=== PATIENT | female | born 1945 | race Caucasian/White ===

== ENCOUNTER → 2017-01-06 | Outpatient (CLI) | payer OTHER ==
[~2017-01-06] MED LIST: CICL160A INH; CLTP PO; LEVO-217 PO; MULT-513 PO; OXYC5TAB PO
--- NOTE | 2017-01-06 15:06 | MAMMOGRAPHY REPORT ---
UNILATERAL RIGHT DIGITAL SCREENING MAMMOGRAM TOMOSYNTHESIS WITH CAD: 01/06/2017 CLINICAL HISTORY: Asymptomatic. Personal history of breast cancer. TECHNIQUE: Breast tomosynthesis in addition to standard 2D mammography was performed. Current study was also evaluated with a Computer Aided Detection (CAD) system. Right CC and MLO 2-D and tomosynt hesis images were obtained. COMPARISON: Comparison is made to exams dated: 12/22/2015 mammogram, 12/19/2014 mammogram, 12/03/2013 m ammogram, 06/13/2013 specimen, 06/13/2013 localization, and 05/23/2013 stereotactic biopsy - [facility]. BREAST COMPOSITION: There are scattered areas of fibroglandular density in the right breast. FINDINGS: There are no suspicious masses, calcifications, or areas of architectural distortion note d in the right breast. There has been no significant interval change compared to prior exams. A bi opsy marker clip is again noted in the right upper outer quadrant. IMPRESSION: ACR BI-RADS CATEGORY 2: BENIGN There is no mammographic evidence of malignancy. A 1 year screening mammogram is recommended. The p atient will receive written notification of the results. Approximately 10% of breast cancers are not detected with mammography. A negative mammographic repor t should not delay biopsy if a clinically suggestive mass is present. Elo Tripathi M.D. /:01/06/2017 13:49:56 Dip [place]: Anabela KELLY)(Alicia), [facility] letter sent: Normal 1/2 BI-RADS Code: ACR BI-RADS Category 2: Benign
== END | disposition home or self-care (01) ==
LOC: C.MAMM 12:29
PROVIDERS: ATTEND Surgery
DX: Z12.31 Encounter for screening mammogram for malignant neoplasm of breast (principal); Z85.3 Personal history of malignant neoplasm of breast

== ENCOUNTER → 2017-01-06 | Outpatient (CLI) | payer OTHER | END | disposition home or self-care (01) | LOC: C.LAB 07:29 | PROVIDERS: ATTEND Physician Assistant | DX: J45.909 Unspecified asthma, uncomplicated (principal); J47.9 Bronchiectasis, uncomplicated; A31.9 Mycobacterial infection, unspecified; R05 Cough; Z12.31 Encounter for screening mammogram for malignant neoplasm of breast; Z85.3 Personal history of malignant neoplasm of breast ==

== ENCOUNTER → 2017-01-13 | Outpatient (CLI) | payer OTHER ==
[2017-01-13 16:41] LABS: BASO % 0.9 %; BASO ABS # 0.07 K/uL (0-0.2); COMPLETE YES; EOS % 7.3 %; HEMATOCRIT 40.6 % (37-47); IG% 0.1 %; LYMPH % 25.3 %; LYMPH ABS # 2.08 K/uL (1.2-3.4); MEAN CELL VOLUME 89.4 fL (80-100); MEAN CORPUSCULAR HEMOGLOBIN 29.5 pg (25-34); MEAN PLATELET VOLUME 10.1 fL (7.4-10.4); MONO % 9.2 %; NEUT % 57.2 %; PLATELET COUNT 300 K/uL (130-400); RED BLOOD COUNT 4.54 M/uL (4.2-5.4); WHITE BLOOD COUNT 8.22 K/uL (4.8-10.8)
[2017-01-13 17:21] LABS: ALKALINE PHOSPHATASE 81 U/L (45-117); ALT/SGPT 26 U/L (12-78); AST/SGOT 22 U/L (15-37); BLOOD UREA NITROGEN 24 mg/dl (7-18); BUN/CREATININE RATIO 27.4 (10-20); CALCIUM 8.8 mg/dl (8.5-10.1); CARBON DIOXIDE 27 mmol/L (21-32); CHLORIDE 108 mmol/L (98-107); CREATININE 0.87 mg/dl (0.60-1.20); GLUCOSE 87 mg/dl (70-99); POTASSIUM 4.2 mmol/L (3.5-5.1); SODIUM 144 mmol/L (136-145); TOTAL IRON BINDING CAPACITY 345 mcg/dl (250-450)
[2017-01-13 17:36] LABS: THYROID STIMULATING HORMONE 0.516 uIu/ml (0.300-4.500)
[2017-01-13 18:38] LABS: LYME DISEASE AB IGG NEG (NEG); LYME DISEASE AB IGM NEG (NEG)
--- NOTE | 2017-01-18 09:11 | CODING QUERY MEDICAL NECESSITY ---
SUPPORTING DIAGNOSIS NEEDED Wiseman SUSY, A supporting diagnosis is required for the test/procedure performed on this patient in order for us to be reimbursed by the patient's insurance. Please provide a supporting diagnosis for the following test/procedure listed below next to the test name along with your signature. *If there is no additional diagnosis for this patient that would support the following test/procedure please document that below next to the test/procedure. Test(s)/Procedure(s) that require a supporting diagnosis: * ([id number]) B12 VITAMIN LEVEL DIAGNOSIS: * ([id number]) VITAMIN D, 1, 25-DIHYDROXY DIAGNOSIS: DATE OF SERVICE: 01/13/17 Provider Signature: Date: Thank you Manuel Moody [facility] Information Management Once completed, please kindly fax back to [phone] For questions please call [phone]
== END | disposition home or self-care (01) ==
LOC: C.LAB 15:44
PROVIDERS: ATTEND Physician Assistant
DX: R53.83 Other fatigue (principal); E53.9 Vitamin B deficiency, unspecified

== ENCOUNTER → 2017-09-27 | Outpatient (CLI) | payer OTHER ==
[2017-09-27 14:26] LABS: INFLUENZA A PCR Neg for Influ A (NEG); INFLUENZA B PCR Neg for Influ B (NEG)
== END | disposition home or self-care (01) ==
LOC: C.LAB1850 11:56
PROVIDERS: ATTEND Physician Assistant
DX: R05 Cough (principal)

== ENCOUNTER → 2017-10-18 | Outpatient (CLI) | payer OTHER ==
--- NOTE | 2017-10-18 10:24 | DIAGNOSTIC IMAGING REPORT ---
CHEST 2 VIEWS ROUTINE CLINICAL HISTORY: COPD RIGHT-SIDED CHEST PAIN. COUGH. COMPARISON STUDY: 12/14/2016 FINDINGS: Postmastectomy changes are visualized in the left. The heart is normal in size. There is no failure. There is no focal pulmonary consolidation. There are no pleural effusions.[ IMPRESSION: No active disease in the chest. Electronically signed by: Jovani Barrera M.D. 10/18/2017 10:22 AM Dictated Date/Time: 10/18/2017 10:21 AM
== END | disposition home or self-care (01) ==
LOC: C.RAD1850 10:13
PROVIDERS: ATTEND Physician Assistant
DX: J44.9 Chronic obstructive pulmonary disease, unspecified (principal)

== ENCOUNTER → 2017-11-02 | Outpatient (CLI) | payer OTHER ==
--- NOTE | 2017-11-02 11:21 | DIAGNOSTIC IMAGING REPORT ---
THORACIC SPINE 3 VIEWS ROUTINE HISTORY: Pain R07.9 Chest [id number] COMPARISON: None. FINDINGS: There is no fracture. Mild scoliosis moderate degenerative disc change throughout. No acute bony abnormality. IMPRESSION: Moderate degenerative change. Mild scoliosis. No acute process. The above report was generated using voice recognition software. It may contain grammatical, syntax or spelling errors. Electronically signed by: Tristan Salcedo M.D. 11/02/2017 11:20 AM Dictated Date/Time: 11/02/2017 11:19 AM
== END | disposition home or self-care (01) ==
LOC: C.RAD1850 10:53
PROVIDERS: ATTEND Physician Assistant
DX: R07.9 Chest pain, unspecified (principal)

== ENCOUNTER → 2017-11-08 | Outpatient (CLI) | payer OTHER ==
--- NOTE | 2017-11-08 11:09 | DIAGNOSTIC IMAGING REPORT ---
(LIVER) ABDOMEN LIMITED HISTORY: 72 years-old Female 10.9 Abdominal painPatient scheduled at [facility] November 08 at 10:30 a acute generalized abdominal pain COMPARISON: CT chest 09/11/2013 TECHNIQUE: Multiple real-time sonogram images of the abdominal right upper quadrant were obtained assessing grayscale appearance and color flow FINDINGS: Slightly increased echogenicity of the pancreas is noted, nonspecific which otherwise appears to be within normal limits. The gallbladder is unremarkable without shadowing cholelithiasis, color wall thickening or pericholecystic fluid. Common bile duct measures 4 mm, within normal limits. The liver appears heterogeneous with increased echogenicity. There are ill-defined areas of decreased echogenicity seen near the tani hepatis within the right hepatic lobe measuring up to 2.6 x 3.5 cm. The imaged right kidney is unremarkable without hydronephrosis, lower pole obscured by bowel gas. IMPRESSION: 1. No cholelithiasis or sonographic evidence of acute cholecystitis. 2. No biliary ductal dilation. 3. Heterogeneous appearance of the liver with increased echogenicity suggesting fatty infiltration. Ill-defined areas of decreased echogenicity within the right hepatic lobe near the tani hepatis may reflect areas of fatty sparing or less likely focal hepatic mass lesions. These findings could be correlated with contrast-enhanced CT of the abdomen. The above report was generated using voice recognition software. It may contain grammatical, syntax or spelling errors. Electronically signed by: Leo Cano M.D. 11/08/2017 11:08 AM Dictated Date/Time: 11/08/2017 11:03 AM
== END | disposition home or self-care (01) ==
LOC: C.ULTR 10:19
PROVIDERS: ATTEND Physician Assistant
DX: R10.9 Unspecified abdominal pain (principal)

== ENCOUNTER → 2017-12-18 | Outpatient (CLI) | payer OTHER ==
[2017-12-18 17:03] LABS: BLOOD UREA NITROGEN 26 mg/dl (7-18); CALCIUM 9.2 mg/dl (8.5-10.1); CARBON DIOXIDE 28 mmol/L (21-32); CREATININE 0.97 mg/dl (0.60-1.20); GLUCOSE 128 mg/dl (70-99); POTASSIUM 4.5 mmol/L (3.5-5.1); SODIUM 136 mmol/L (136-145)
== END | disposition home or self-care (01) ==
LOC: C.LAB 15:25
PROVIDERS: ATTEND Physician Assistant
DX: J44.9 Chronic obstructive pulmonary disease, unspecified (principal); R53.83 Other fatigue; R93.2 Abnormal findings on diagnostic imaging of liver and biliary tract

== ENCOUNTER → 2017-12-19 | Outpatient (CLI) | payer OTHER ==
[~2017-12-19] MED LIST changes: +GADOXETATE DISODIUM (NON-WT BASED PROCEDURE) IV PRN
--- NOTE | 2017-12-19 16:11 | DIAGNOSTIC IMAGING REPORT ---
MRI OF THE ABDOMEN WITH AND WITHOUT CONTRAST LIVER PROTOCOL CLINICAL HISTORY: Abnormal right upper quadrant ultrasound. Right lower quadrant pain. COMPARISON STUDY: Right upper quadrant ultrasound November 08, 2017. TECHNIQUE: Utilizing a 1.5 Cassandra magnet and dedicated coil, multiplanar, multiecho imaging of the abdomen was performed pre and postcontrast administration. Post contrast imaging was performed utilizing dynamic enhancement with 20 minute delayed phase imaging. Injection of 10 cc of Eovist IV was uneventful. FINDINGS: The liver morphology is normal. There is heterogeneous loss of signal within the liver on the out of phase sequence consistent with fatty infiltration. This accounts for the finding on previous ultrasound with areas of fatty sparing noted within the liver. No suspicious hepatic lesions are present. A few T2 hyperintense nonenhancing lesions within the liver reflect cysts. The largest is a 1 cm segment 2 hepatic cyst. There is no biliary or pancreatic ductal dilatation. There is a 1.1 cm hypervascular subcapsular segment 5 focus which is likely benign. This was not shown on prior ultrasound. Note is made of an 8 mm right renal cyst. There is no hydronephrosis. The spleen and adrenal glands are unremarkable. There is no abdominal lymphadenopathy or ascites. A T2 hyperintense lobulated nonenhancing right cardiophrenic angle lesion measuring 7.2 x 4.6 x 2.3 cm reflects a pericardial cyst. The patient is status post left mastectomy. IMPRESSION: 1. No suspicious hepatic lesions. Fatty infiltration of the liver with multiple areas of fatty sparing which accounts for the abnormality on previous ultrasound. 2. 7.2 x 4.6 x 2.3 cm T2 hyperintense nonenhancing right cardiophrenic angle lesion which is suggestive of a pericardial cyst. Electronically signed by: Sushil Mejias M.D. 12/19/2017 4:09 PM Dictated Date/Time: 12/19/2017 2:44 PM
== END ==
LOC: C.MRI 13:12
PROVIDERS: ATTEND Physician Assistant
DX: R93.2 Abnormal findings on diagnostic imaging of liver and biliary tract (principal)

== ENCOUNTER → 2018-01-08 | Outpatient (CLI) | payer OTHER ==
[~2018-01-08] MED LIST changes: -GADOXETATE DISODIUM (NON-WT BASED PROCEDURE) IV PRN
--- NOTE | 2018-01-09 15:04 | MAMMOGRAPHY REPORT ---
UNILATERAL RIGHT DIGITAL SCREENING MAMMOGRAM TOMOSYNTHESIS WITH CAD: 01/08/2018 CLINICAL HISTORY: Routine screening. Patient has no complaints. TECHNIQUE: Right breast tomosynthesis in addition to standard 2D mammography was performed. Current won magallon was also evaluated with a Computer Aided Detection (CAD) system. COMPARISON: Comparison is made to exams dated: 01/06/2017 mammogram, 12/22/2015 mammogram, 12/19/2014 m ammogram, 12/03/2013 mammogram, 06/13/2013 localization, and 01/27/2010 mammogram - [facility]. BREAST COMPOSITION: There are scattered areas of fibroglandular density in the right breast. FINDINGS: There is a stable benign lobulated mass with associated biopsy marker clip in the upper out er quadrant of the right breast. No suspicious mass, architectural distortion or cluster of microcal cifications is seen. IMPRESSION: ACR BI-RADS CATEGORY 1: NEGATIVE There is no mammographic evidence of malignancy. A 1 year screening mammogram is recommended. The pa tient will receive written notification of the results. Approximately 10% of breast cancers are not detected with mammography. A negative mammographic report should not delay biopsy if a clinically suggestive mass is present. Janet Swanson M.D. ay/:01/08/2018 16:12:10 Clinical Cytogenetics Director: Melissa KELLY)(M), [facility] letter sent: Normal 1/2 BI-RADS Code: ACR BI-RADS Category 1: Negative
== END | disposition home or self-care (01) ==
LOC: C.MAMM 13:20
PROVIDERS: ATTEND Surgery
DX: Z12.31 Encounter for screening mammogram for malignant neoplasm of breast (principal); Z90.12 Acquired absence of left breast and nipple

== ENCOUNTER → 2018-04-18 | Outpatient (CLI) | payer OTHER | END | disposition home or self-care (01) | LOC: C.LAB 14:13 | PROVIDERS: ATTEND Family Medicine | DX: E03.8 Other specified hypothyroidism (principal) ==

== ENCOUNTER 2022-08-17 17:44 | Inpatient (IN) ==
[2022-08-17 19:27] LABS: Basophils # (auto) 0.05 K/uL (0-0.2); Basophils % (auto) 0.3 %; Eosinophils # (auto) 0.03 K/uL (0-0.50); Eosinophils % (auto) 0.2 %; Hematocrit (blood only) 39.9 % (34.1-44.9); Hemoglobin 13.3 g/dl (12.0-16.0); Immature Granulocytes # (auto) 0.04 K/uL (0.00-0.02); Immature Granulocytes % (auto) 0.3 %; Lymphocytes # (auto) 0.95 K/uL (1.2-3.4); Lymphocytes % (auto) 6.2 %; Mean Corpuscular Hemoglobin 28.8 pg (25.0-34.0); Mean Corpuscular Hgb Conc 33.3 g/dL (32.0-36.0); Mean Corpuscular Volume 86.4 fL (80.0-100.0); Mean Platelet Volume 9.8 fL (9.4-12.3); Monocytes % (auto) 7.2 %; Neutrophils # (auto) 13.17 K/uL (1.4-6.5); Neutrophils % (auto) 85.8 %; Platelet Count 306 K/uL (130-400); RDW Coefficient of Variation 13.7 % (11.5-14.5); RDW Standard Deviation 43.5 fL (36.4-46.3); Red Blood Count 4.62 M/uL (3.93-5.22); White Blood Count 15.34 K/ul (4.8-10.8)
[2022-08-17 20:31] LABS: Albumin Globulin Ratio 0.9 (0.9-2); Albumin Level 3.7 gm/dl (3.4-5.0); Bilirubin,Total 0.7 mg/dl (0.2-1.0); Calcium 9.2 mg/dl (8.5-10.1); Creatinine Clr Calc Pharmacy 70.9 ml/min; Est GFR (African American) 96.2 ml/min; Globulin 4.2 gm/dl (2.5-4.0); Potassium 3.8 mmol/L (3.5-5.1); Total Protein 7.9 gm/dl (6.0-8.3)
[2022-08-17] MEDS ORDERED: SODIUM CHLORIDE 0.9% 1000ML 1,000 ML IV SCH (20:45)
[2022-08-17] MEDS ORDERED: levoFLOXacin/D5W 750 MG/150 ML BAG IV STA (20:48)
[2022-08-17 20:51] LABS: Influenza A virus by PCR Negative (Neg); Influenza B virus by PCR Negative (Neg); RSV by PCR Negative (Neg); SARS CoV2 RNA(COVID-19) Ceph NEGATIVE (Negative)
--- NOTE | 2022-08-17 20:54 | Emergency Department Note ---
History of Present Illness General Chief complaint: Flu Like Symptoms Stated complaint: REFER BY DOC, SEVERE PNUEMONIA Time Seen by Provider: 08/17/22 19:54 History of Present Illness Maximum Pain Intensity: 5 77-year-old female presents to the ED with a chief complaint of pneumonia. The patient states that she saw Dr. Casas today. She had an x-ray that shows that she has pneumonia. She was told to come to the ED to be admitted to the hospital. The patient reports upper respiratory symptoms and increasing shortness of breath. She was hypoxic when she came in today on room air. She does not use home oxygen. Reports some generalized weakness as well. Home Medications Medication Instructions Recorded Confirmed Type cholecalciferol (vitamin D3) 25 1,000 unit PO DAILY 04/10/19 08/17/22 History mcg (1,000 unit) capsule multivitamin 1 tab PO DAILY 04/10/19 08/17/22 History Oxygen Home #1 ea 12/30/20 08/17/22 Rx magnesium gluconate 27 mg 27 mg PO BID 11/24/21 08/17/22 History magnesium (500 mg) tablet (Mag-G) nebulizer accessories #1 ea 03/11/22 08/17/22 Rx hydroxyzine HCl 25 mg tablet 25 mg PO BID PRN itching #30 tabs 06/29/22 08/17/22 Rx fluticasone furoate 200 1 inh inhalation DAILY #30 ea 07/01/22 08/17/22 Rx mcg/actuation blister powder for inhalation (Arnuity Ellipta) levothyroxine 50 mcg tablet 25 mcg PO DAILY #30 tabs 07/20/22 08/17/22 History Flutter Valve #1 ea 07/25/22 08/17/22 Rx sodium chloride 7 % for 4 ml inhalation BID #240 mL 07/27/22 08/17/22 Rx nebulization albuterol sulfate 2.5 mg/3 mL 2.5 mg (3 mL) inhalation BID PRN 07/29/22 08/17/22 Rx (0.083 %) solution for nebulization shortness of breath or wheezing #180 mL oseltamivir 75 mg capsule (Tamiflu) 75 mg PO BID 5 days #10 caps 08/15/22 08/17/22 Rx Allergies Allergy/AdvReac Type Severity Reaction Status Date / Time Cephalosporins Allergy Severe Verified 07/20/22 10:09 lidocaine Allergy Severe Verified 07/20/22 10:09 tree and shrub pollen Allergy Severe Verified 07/20/22 10:09 cefaclor Allergy Unknown . Verified 07/20/22 10:09 iodine Allergy Unknown HIVES Verified 07/20/22 10:09 Penicillins Allergy Unknown RASH, RXN Verified 07/20/22 10:09 TO AMOXICILLIN [place] Allergy Unknown UNKNOWN. Uncoded 07/20/22 10:09 Past Med/Surg History Medical History Abdominal pain Asthmatic bronchitis Atypical mycobacterial infection Bronchiectasis Chronic shortness of breath Cough Cough productive of purulent sputum Fever RADHA (mycobacterium avium-intracellulare) Pneumonia Postherpetic neuralgia Surgical History History of bronchoscopy History of partial mastectomy of left breast History of tonsillectomy History of total abdominal hysterectomy and bilateral salpingo-oophorectomy Family History Sister Cervical cancer Mother Diabetes Other Colon cancer Crohn's disease Heart disease Social History Smoking Status: Former smoker Tobacco Type: Cigarettes Feels Safe at Home: Yes Review of Systems A total of 10 systems reviewed and were otherwise negative Physical Exam Vital Signs Vital Signs - 24 hr 08/17/22 18:29 08/17/22 19:11 08/17/22 20:05 Temperature 38.3 C H Temperature Source Oral Pulse Rate 106 H Pulse Rate [Finger] 99 H Pulse Rate from SpO2 Sensor Pulse Rhythm Pulse Rhythm [Finger] Regular Pulse Strength [Finger] Normal Respiratory Rate 24 20 Respiratory Effort / Characteristics Non-Labored Spontaneous Non-Labored Respiratory Depth Normal Normal Respiratory Pattern Regular Blood Pressure 147/78 H Blood Pressure Mean 101 Pulse Oximetry 88 L 98 79 L Oxygen Delivery Method Room Air Room Air Room Air Oxygen Flow Rate Sepsis Recent Fever Within 48 Hours No Sepsis New/Unexplained Change in Mental Status N/A Sepsis Action Taken by Nursing No Action Required Oxygen Flow Rate - Titration 2 Pulse Oximetry Post Tiitration 92 08/17/22 18:59 08/17/22 19:00 08/17/22 19:01 Temperature Temperature Source Pulse Rate 104 H 110 H Pulse Rate [Finger] Pulse Rate from SpO2 Sensor 104 H 110 H Pulse Rhythm Pulse Rhythm [Finger] Pulse Strength [Finger] Respiratory Rate 16 29 H Respiratory Effort / Characteristics Respiratory Depth Respiratory Pattern Blood Pressure 191/164 H Blood Pressure Mean 173 Pulse Oximetry 88 L 91 Oxygen Delivery Method Oxygen Flow Rate Sepsis Recent Fever Within 48 Hours Sepsis New/Unexplained Change in Mental Status Sepsis Action Taken by Nursing Oxygen Flow Rate - Titration Pulse Oximetry Post Tiitration 08/17/22 19:01 08/17/22 19:12 08/17/22 19:12 Temperature Temperature Source Pulse Rate 86 Pulse Rate [Finger] Pulse Rate from SpO2 Sensor 89 Pulse Rhythm Pulse Rhythm [Finger] Pulse Strength [Finger] Respiratory Rate 20 Respiratory Effort / Characteristics Respiratory Depth Respiratory Pattern Blood Pressure 179/123 H 176/58 H Blood Pressure Mean 141 97 Pulse Oximetry 83 L Oxygen Delivery Method Oxygen Flow Rate Sepsis Recent Fever Within 48 Hours Sepsis New/Unexplained Change in Mental Status Sepsis Action Taken by Nursing Oxygen Flow Rate - Titration Pulse Oximetry Post Tiitration 08/17/22 19:30 08/17/22 19:30 08/17/22 20:00 Temperature Temperature Source Pulse Rate 96 H Pulse Rate [Finger] Pulse Rate from SpO2 Sensor 95 H Pulse Rhythm Pulse Rhythm [Finger] Pulse Strength [Finger] Respiratory Rate 36 H Respiratory Effort / Characteristics Respiratory Depth Respiratory Pattern Blood Pressure 178/58 H 174/64 H Blood Pressure Mean 98 100 Pulse Oximetry 91 Oxygen Delivery Method Oxygen Flow Rate Sepsis Recent Fever Within 48 Hours Sepsis New/Unexplained Change in Mental Status Sepsis Action Taken by Nursing Oxygen Flow Rate - Titration Pulse Oximetry Post Tiitration 08/17/22 20:00 08/17/22 20:30 08/17/22 20:30 Temperature Temperature Source Pulse Rate 85 93 H Pulse Rate [Finger] Pulse Rate from SpO2 Sensor 85 90 Pulse Rhythm Pulse Rhythm [Finger] Pulse Strength [Finger] Respiratory Rate 36 H 26 H Respiratory Effort / Characteristics Respiratory Depth Respiratory Pattern Blood Pressure 166/53 H Blood Pressure Mean 90 Pulse Oximetry 91 95 Oxygen Delivery Method Nasal Cannula Oxygen Flow Rate 2 Sepsis Recent Fever Within 48 Hours Sepsis New/Unexplained Change in Mental Status Sepsis Action Taken by Nursing Oxygen Flow Rate - Titration Pulse Oximetry Post Tiitration 08/17/22 21:28 08/17/22 21:30 08/17/22 21:00 Temperature Temperature Source Pulse Rate 90 Pulse Rate [Finger] Pulse Rate from SpO2 Sensor Pulse Rhythm Regular Pulse Rhythm [Finger] Pulse Strength [Finger] Respiratory Rate 20 Respiratory Effort / Characteristics Respiratory Depth Respiratory Pattern Blood Pressure 149/61 H Blood Pressure Mean 90 Pulse Oximetry 99 99 Oxygen Delivery Method Nasal Cannula Nasal Cannula Oxygen Flow Rate 2 2 Sepsis Recent Fever Within 48 Hours Sepsis New/Unexplained Change in Mental Status Sepsis Action Taken by Nursing Oxygen Flow Rate - Titration Pulse Oximetry Post Tiitration 08/17/22 21:00 08/17/22 21:30 08/17/22 21:30 Temperature Temperature Source Pulse Rate 82 87 Pulse Rate [Finger] Pulse Rate from SpO2 Sensor 83 85 Pulse Rhythm Pulse Rhythm [Finger] Pulse Strength [Finger] Respiratory Rate 33 H 27 H Respiratory Effort / Characteristics Respiratory Depth Respiratory Pattern Blood Pressure 166/60 H Blood Pressure Mean 95 Pulse Oximetry 98 100 Oxygen Delivery Method Nasal Cannula Oxygen Flow Rate 2 Sepsis Recent Fever Within 48 Hours Sepsis New/Unexplained Change in Mental Status Sepsis Action Taken by Nursing Oxygen Flow Rate - Titration Pulse Oximetry Post Tiitration CONSTITUTIONAL/VITAL SIGNS: Reviewed / noted above. GENERAL: Non-toxic in appearance. INTEGUMENTARY: Warm, dry, and [place]. HEAD: Normocephalic. EYES: without scleral icterus or trauma. ENT/OROPHARYNX: clear and moist. LYMPHADENOPATHY/NECK: Is supple without lymphadenopathy or meningismus. RESPIRATORY: Diminished with some rhonchi to auscultation bilaterally. No increased work of breathing. CARDIOVASCULAR: Regular rate and rhythm. GI/ABDOMEN: Soft and nontender. No organomegaly or pulsatile mass. EXTREMITIES: Warm and well perfused. BACK: No CVA tenderness. NEUROLOGICAL: Intact without focal deficits. PSYCHIATRIC: normal affect. MUSCULOSKELETAL: Normally developed with good muscle tone. TRIAGE NURSING DOCUMENTATION REVIEWED. Course Administered Medications Discontinued Medications Sodium Chloride (Nss 1000ml) 1,000 mls @ 999 mls/hr IV .Q1H1M POLO Stop: 08/17/22 21:45 Last Infusion: 08/17/22 22:12 Dose: 0 mls/hr Documented By: Admin: 08/17/22 21:03 Dose: 999 mls/hr Documented By: JONNY Levofloxacin/Dextrose (Levaquin/D5w) 750 mg in 150 mls @ 100 mls/hr IV NOW [facility] Stop: 08/17/22 22:17 Last Infusion: 08/17/22 22:47 Dose: 0 mls/hr Documented By: Admin: 08/17/22 21:04 Dose: 100 mls/hr Documented By: JONNY Acetaminophen (Ofirmev) 1,000 mg in 100 mls @ 400 mls/hr IV NOW STA Stop: 08/17/22 21:28 Last Infusion: 08/17/22 21:43 Dose: 0 mls/hr Documented By: Admin: 08/17/22 21:22 Dose: 400 mls/hr Documented By: JONNY Medical Decision Making Differential Diagnosis The differential was considered includes acute myocardial infarction, acute coronary syndrome, myocarditis, pericarditis, pericardial effusions /tamponad, esophageal perforation, pulmonary embolism, pneumonia, pneumothorax, cardiomyopathy, congestive heart, anemia , COPD/asthma exacerbation. Medical Records Attestation: I reviewed the patient's medical records. Home Medications Current Medication List: was personally reviewed by me Laboratory Data Attestation: I reviewed the patient's lab results. Result diagrams: 08/17/22 19:15 08/17/22 19:15 Lab Results 08/17/22 08/17/22 08/17/22 Range/Units 19:15 19:15 20:01 WBC 15.34 H (4.8-10.8) K/ul RBC 4.62 (3.93-5.22) M/uL Hgb 13.3 (12.0-16.0) g/dl Hct 39.9 (34.1-44.9) % MCV 86.4 (80.0-100.0) fL MCH 28.8 (25.0-34.0) pg MCHC 33.3 (32.0-36.0) g/dL RDW Std Deviation 43.5 (36.4-46.3) fL RDW Coeff of Ara 13.7 (11.5-14.5) % Plt Count 306 (130-400) K/uL MPV 9.8 (9.4-12.3) fL Immature Gran % (Auto) 0.3 % Neut % (Auto) 85.8 % Lymph % (Auto) 6.2 % Phelps % (Auto) 7.2 % Eos % (Auto) 0.2 % Baso % (Auto) 0.3 % Neut # (Auto) 13.17 H (1.4-6.5) K/uL Lymph # (Auto) 0.95 L (1.2-3.4) K/uL Phelps # (Auto) 1.10 H (0.24-0.82) K/uL Eos # (Auto) 0.03 (0-0.50) K/uL Baso # (Auto) 0.05 (0-0.2) K/uL Immature Gran # (Auto) 0.04 H (0.00-0.02) K/uL Sodium 135 L (136-145) mmol/L Potassium 3.8 (3.5-5.1) mmol/L Chloride 100 (98-107) mmol/L Carbon Dioxide 25 (21-32) mmol/L Anion Gap 10 (3-11) BUN 21 (6-23) mg/dl Creatinine 0.70 (0.6-1.2) mg/dl Est Cr Clr Drug Dosing 70.9 ml/min Est GFR ( Amer) 96.2 ml/min Est GFR (Non-Af Amer) 83.0 ml/min BUN/Creatinine Ratio 30.0 H (10-20) Glucose 136 H (70-99(Fasting)) mg/dl Lactate (0.4-2.0) mmol/L Calcium 9.2 (8.5-10.1) mg/dl Magnesium (1.7-2.4) mg/dl Total Bilirubin 0.7 (0.2-1.0) mg/dl AST 33 (13-39) U/L ALT 27 (7-52) U/L Alkaline Phosphatase 98 (34-104) U/L Troponin I High Sens (0-14) pg/ml Total Protein 7.9 (6.0-8.3) gm/dl Albumin 3.7 (3.4-5.0) gm/dl Globulin 4.2 H (2.5-4.0) gm/dl Albumin/Globulin Ratio 0.9 (0.9-2) Procalcitonin (0-0.5) ng/ml SARS-CoV-2 (PCR) NEGATIVE (Negative) Influenza Type A (PCR) Negative (Neg) Influenza Type B (PCR) Negative (Neg) RSV (RT-PCR) Negative (Neg) 12/21/22 12/21/22 12/21/22 Range/Units 21:31 21:31 21:31 WBC (4.8-10.8) K/ul RBC (3.93-5.22) M/uL Hgb (12.0-16.0) g/dl Hct (34.1-44.9) % MCV (80.0-100.0) fL MCH (25.0-34.0) pg MCHC (32.0-36.0) g/dL RDW Std Deviation (36.4-46.3) fL RDW Coeff of Ara (11.5-14.5) % Plt Count (130-400) K/uL MPV (9.4-12.3) fL Immature Gran % (Auto) % Neut % (Auto) % Lymph % (Auto) % Phelps % (Auto) % Eos % (Auto) % Baso % (Auto) % Neut # (Auto) (1.4-6.5) K/uL Lymph # (Auto) (1.2-3.4) K/uL Phelps # (Auto) (0.24-0.82) K/uL Eos # (Auto) (0-0.50) K/uL Baso # (Auto) (0-0.2) K/uL Immature Gran # (Auto) (0.00-0.02) K/uL Sodium (136-145) mmol/L Potassium (3.5-5.1) mmol/L Chloride (98-107) mmol/L Carbon Dioxide (21-32) mmol/L Anion Gap (3-11) BUN (6-23) mg/dl Creatinine (0.6-1.2) mg/dl Est Cr Clr Drug Dosing ml/min Est GFR ( Amer) ml/min Est GFR (Non-Af Amer) ml/min BUN/Creatinine Ratio (10-20) Glucose (70-99(Fasting)) mg/dl Lactate 0.8 (0.4-2.0) mmol/L Calcium (8.5-10.1) mg/dl Magnesium 1.7 (1.7-2.4) mg/dl Total Bilirubin (0.2-1.0) mg/dl AST (13-39) U/L ALT (7-52) U/L Alkaline Phosphatase (34-104) U/L Troponin I High Sens 18.0 H (0-14) pg/ml Total Protein (6.0-8.3) gm/dl Albumin (3.4-5.0) gm/dl Globulin (2.5-4.0) gm/dl Albumin/Globulin Ratio (0.9-2) Procalcitonin 0.46 (0-0.5) ng/ml SARS-CoV-2 (PCR) (Negative) Influenza Type A (PCR) (Neg) Influenza Type B (PCR) (Neg) RSV (RT-PCR) (Neg) Imaging Data My Impression: Chest x-ray: Per my review, I agree with radiologist suggesting the patient has bilateral pneumonia. ECG Data Attestation: I personally reviewed and interpreted this ECG as follows: Additional Comments: Twelve-lead EKG: Per my interpretation shows a normal sinus rhythm at a rate about 80. No ST elevation. No PVCs. Normal QTC. MDM Narrative 77-year-old female presents with cough and upper respiratory symptoms in the setting of a recent chest x-ray that shows bilateral pneumonia. She was hypoxic when she came in today with saturations in the 80s on room air. 2 L gets her up to 95%. She is febrile with a temp of 38.3. Her white blood cell count was elevated at about 15,000. Chemistry panel was unremarkable. The patient was given IV Levaquin and IV fluids. She will be seen by the hospitalist for further evaluation and care. Impression & Plan Bilateral interstitial pneumonia, Hypoxia Discharge Plan Visit Data Chief Complaint: Flu Like Symptoms Stated Complaint: REFER BY DOC, SEVERE PNUEMONIA ED Provider: Chuy Weiss Discharge Problem: Bilateral interstitial pneumonia, Hypoxia Patient Disposition: Admitted As Inpatient Discharge Instructions Interventions: ED Discharge Assessment Last Done: 08/17/22 23:01
--- NOTE | 2022-08-17 21:07 | History & Physical Report ---
Date of Service August 17, 2022 Assessment & Plan (1) Bilateral interstitial pneumonia: Plan: - 4 days of fever/chills, shortness of breath, cough. - CXR: Interval worsening of bilateral lower lung predominant airspace opacities which may represent infectious/inflammatory process. - WBC 15 w/ left shift, febrile, tachypneic, hypoxic, borderline tachycardic. - Due to allergies to penicillins and cephalosporins, patient started empirically on Levaquin. - COVID/flu/RSV negative. - Procal and lactate ordered, pending. (2) SIRS (systemic inflammatory response syndrome): Plan: - WBC 15, temp 38.3C, RR 27 - Secondary to bacterial pneumonia, treatment as above. (3) Asthmatic bronchitis: Plan: - Continue home inhalers. (4) Hypothyroidism: Plan: - Continue levothyroxine. (5) Bronchiectasis: Plan - Admit to med/tele. - SCDs, Lovenox for VTE ppx. - Full Code. History of Present Illness Chief Complaint: SOB, chills x 4 days Primary Care Provider: David Khoury MD Janie Rodriguez is a 77-year-old female with a past medical history significant for asthma, bronchiectasis, nontuberculous Mycobacterium infection, and hypothyroidism who is presenting today at the referral of her clerk checker for findings of pneumonia on outpatient x-ray. She has been having ongoing weakness, shortness of breath, cough, and fevers/chills at home since Monday. Her clerk checker ordered COVID/flu/RSV panel as well as chest x-ray. Negative for viruses, however CXR with interval worsening of bilateral lower lung predominant airspace opacities. She was encouraged to present to the ED for further evaluation. On presentation, she is febrile at 38.3 C, tachycardic with an HR in 100s, 88% on room air, and hypertensive. Placed on 2 L NC with improvement. Labs are notable for leukocytosis 15 with left shift, otherwise unremarkable without electrolyte abnormalities or renal impairment. COVID, flu, RSV rechecked today and are negative. She was given 1L NSS bolus and a dose of levofloxacin in the ED. Allergies Allergy/AdvReac Type Severity Reaction Status Date / Time Cephalosporins Allergy Severe Verified 07/20/22 10:09 lidocaine Allergy Severe Verified 07/20/22 10:09 tree and shrub pollen Allergy Severe Verified 07/20/22 10:09 cefaclor Allergy Unknown . Verified 07/20/22 10:09 iodine Allergy Unknown HIVES Verified 07/20/22 10:09 Penicillins Allergy Unknown RASH, RXN Verified 07/20/22 10:09 TO AMOXICILLIN [place] Allergy Unknown UNKNOWN. Uncoded 07/20/22 10:09 Home Medications Medication Instructions Recorded Confirmed Type cholecalciferol (vitamin D3) 25 1,000 unit PO DAILY 04/10/19 08/17/22 History mcg (1,000 unit) capsule multivitamin 1 tab PO DAILY 04/10/19 08/17/22 History Oxygen Home #1 ea 12/30/20 08/17/22 Rx magnesium gluconate 27 mg 27 mg PO BID 11/24/21 08/17/22 History magnesium (500 mg) tablet (Mag-G) nebulizer accessories #1 ea 03/11/22 08/17/22 Rx hydroxyzine HCl 25 mg tablet 25 mg PO BID PRN itching #30 tabs 06/29/22 08/17/22 Rx fluticasone furoate 200 1 inh inhalation DAILY #30 ea 07/01/22 08/17/22 Rx mcg/actuation blister powder for inhalation (Arnuity Ellipta) levothyroxine 50 mcg tablet 25 mcg PO DAILY #30 tabs 07/20/22 08/17/22 History Flutter Valve #1 ea 07/25/22 08/17/22 Rx sodium chloride 7 % for 4 ml inhalation BID #240 mL 07/27/22 08/17/22 Rx nebulization albuterol sulfate 2.5 mg/3 mL 2.5 mg (3 mL) inhalation BID PRN 07/29/22 08/17/22 Rx (0.083 %) solution for nebulization shortness of breath or wheezing #180 mL oseltamivir 75 mg capsule (Tamiflu) 75 mg PO BID 5 days #10 caps 08/15/22 08/17/22 Rx Past Med/Surg History Medical History Abdominal pain Asthmatic bronchitis Atypical mycobacterial infection Bronchiectasis Chronic shortness of breath Cough Cough productive of purulent sputum Fever RADHA (mycobacterium avium-intracellulare) Pneumonia Postherpetic neuralgia Surgical History History of bronchoscopy History of partial mastectomy of left breast History of tonsillectomy History of total abdominal hysterectomy and bilateral salpingo-oophorectomy Family History Sister Cervical cancer Mother Diabetes Other Colon cancer Crohn's disease Heart disease Social History Smoking Status: Former smoker Tobacco Type: Cigarettes Hx Alcohol Use: Yes Alcohol type: wine Hx Substance Use: No Preferred Language: Amharic Communication Ability: Effective Employee Health Nurse Required: No Beliefs That Will Affect Care: Catholic Current Living Situation: Spouse Feels Safe at Home: Yes Assistive Devices: None Review of Systems Review of Systems: Constitutional: fever/chills, weakness, fatigue x 4 days; no myalgias, anorexia, night sweats Eyes: No diplopia, no worsening or blurred vision ENT: normal hearing, no trouble swallowing Respiratory: cough, increased sputum, dyspnea on exertion x 4 days Cardiovascular: No chest pain, tightness or palpitations Abdomen: No pain, nausea, vomiting, diarrhea or constipation : Denies dysuria, hematuria, increased urgency/frequency, urinary retention Musculoskeletal: No joint pain, calf pain, swelling Neurologic: No weakness, numbness/tingling, or balance problems Psychiatric: No anxiety or depression Skin: No rash or itch Physical Exam Physical Exam: General: awake, alert, no apparent distress, Head: Normocephalic, atraumatic ENT: PERRL, EOMI, no pharyngeal exudate, mucous membranes moist Chest: decreased breath sounds in b/l lower lung magdaleno, on 2L NC, conversational without dyspnea or accessory muscle use Cardiac: Regular rate and rhythm, no murmur, no JVD, normal peripheral pulses, good capillary refill Abdominal: NABS x 4 quadrants, soft, nontender to palpation, no rebound, guarding or tenderness Extremities: Normal inspection, no peripheral edema or erythema, calfs nontender to palpation Psych: Normal mood and affect Neuro: AAO x 3, strength intact bilaterally and rated 5/5, no motor deficits, speech is clear, no peripheral sensory deficits Skin: no rash or erythema Results & Data Results & Data ([facility]) Vital Signs (Past 12 Hours) Vital Signs Temp Pulse Pulse Resp BP Pulse Ox O2 Del Method 08/17/22 20:30 93 H 26 H 95 Nasal Cannula 08/17/22 20:30 166/53 H 08/17/22 20:00 85 36 H 91 08/17/22 20:00 174/64 H 08/17/22 19:30 96 H 36 H 91 08/17/22 19:30 178/58 H 08/17/22 19:12 176/58 H 08/17/22 19:12 86 20 83 L 08/17/22 19:01 179/123 H 08/17/22 19:01 110 H 29 H 91 08/17/22 19:00 104 H 16 88 L 08/17/22 18:59 191/164 H 08/17/22 20:05 79 L Room Air 08/17/22 19:11 99 H 20 98 Room Air 08/17/22 18:29 38.3 C H 106 H 24 147/78 H 88 L Room Air O2 Flow Rate 08/17/22 20:30 2 08/17/22 20:30 08/17/22 20:00 08/17/22 20:00 08/17/22 19:30 08/17/22 19:30 08/17/22 19:12 08/17/22 19:12 08/17/22 19:01 08/17/22 19:01 08/17/22 19:00 08/17/22 18:59 08/17/22 20:05 08/17/22 19:11 08/17/22 18:29 Laboratory Results Abnormal lab results 08/17/22 08/17/22 Range/Units 19:15 19:15 WBC 15.34 H (4.8-10.8) K/ul Neut # (Auto) 13.17 H (1.4-6.5) K/uL Lymph # (Auto) 0.95 L (1.2-3.4) K/uL [place] # (Auto) 1.10 H (0.24-0.82) K/uL Immature Gran # (Auto) 0.04 H (0.00-0.02) K/uL Sodium 135 L (136-145) mmol/L BUN/Creatinine Ratio 30.0 H (10-20) Glucose 136 H (70-99(Fasting)) mg/dl Globulin 4.2 H (2.5-4.0) gm/dl ECG Additional Comments: Normal sinus rhythm Normal ECG When compared with ECG of 07-APR-2010 06:20, No significant change was found. Code Status & VTE Plan Code Status Full Code. Supervising Physician Co-Signing Physician Notes Attending addendum: I have physically seen this patient, have supervised the medical residents activities, and agree with the H&P unless as otherwise noted. Assessment and Plan: Bilateral interstitial pneumonia/SIRS/asthmatic bronchitis/bronchiectasis- Allergic to penicillins and cephalosporins- Agree with levofloxacin 750 mg IV daily Duonebs every 4 hours while awake and every 2 hours when necessary. Negative for COVID-19/flu/RSV Guaifenesin extended release 12 mg p.o. twice daily Follows outpatient setting with pulmonology Dr. Sorto Hypothyroidism- Continue levothyroxine Remaining orders and notations as noted PG Care Time/CCT Total # of Minutes Spent Total Time Spent with Patient: Total time spent is greater than 50% in coordination of care (as documented) at patient's floor/unit and/or counseling patient: Coding Level of Care Code 49028 Initial Inpt Care Lvl 3 Diagnoses Bilateral interstitial pneumonia J84.9 SIRS (systemic inflammatory response syndrome) R65.10 Asthmatic bronchitis J45.909 Hypothyroidism E03.9 Bronchiectasis J47.9
[2022-08-17] MEDS ORDERED: ACETAMINOPHEN 1,000 MG/100 ML VIAL IV STA (21:14)
[2022-08-17 22:12] LABS: Magnesium 1.7 mg/dl (1.7-2.4)
[2022-08-17] MEDS ORDERED: ALBUTEROL 0.083% NEBU SOLN 3 ML VIAL INH PRN ×2 (23:52)
[2022-08-17] MEDS ORDERED: hydrOXYzine HCl 25 MG TAB PO PRN (23:52)
[2022-08-17] MEDS ORDERED: ALUMINUM/MAGNESIUM SUSP 30 ML UDC PO PRN (23:52)
[2022-08-17] MEDS ORDERED: POLYETHYLENE (MIRALAX) 17 GM PACK PO PRN (23:52)
[2022-08-17] MEDS ORDERED: ONDANSETRON INJ 2 MG/ML 2 ML VIAL IV PRN (23:52)
[2022-08-18] MEDS: LACTATED RINGER'S 1,000 ML IV SCH ×2 (00:38→08:53)
[2022-08-18] MEDS: ENOXAPARIN INJ 40 MG/0.4 ML SYR SQ SCH ×2 (00:39→20:43)
[2022-08-18 02:54] LABS: Appearance Urine Clear (Clear); Bacteria Urine Automated Negative (Negative); Bilirubin Urine Negative (Negative); Blood Urine 1+ (Negative); Color Urine Yellow; Glucose Urine UA Negative (Negative); Ketones Urine Negative (Negative); Leukocyte Esterase Urine Negative (Negative); Nitrite Urine Negative (Negative); Protein Urine Negative (Negative); RBC Urine Automated 0-4 /hpf (0-4); Urobilinogen Urine Negative (Negative); pH Urine 5.5 (4.5-7.5)
[2022-08-18] MEDS: ACETAMINOPHEN 325 MG TAB PO PRN ×2 (05:02→21:20)
[2022-08-18] MEDS ORDERED: MoRPHine SULFATE 2 MG/ML CARP IV STA (06:12)
[2022-08-18] MEDS ORDERED: LEVOTHYROXINE SODIUM 25 MCG TABLET PO SCH (06:30)
[2022-08-18] MEDS: SODIUM CHLOR 7% 4 ML NEB INH SCH ×2 (07:21→20:35)
[2022-08-18 07:48] LABS: Basophils # (auto) 0.06 K/uL (0-0.2); Basophils % (auto) 0.5 %; Eosinophils # (auto) 0.04 K/uL (0-0.50); Eosinophils % (auto) 0.3 %; Hematocrit (blood only) 35.5 % (34.1-44.9); Hemoglobin 11.6 g/dl (12.0-16.0); Immature Granulocytes # (auto) 0.06 K/uL (0.00-0.02); Immature Granulocytes % (auto) 0.5 %; Lymphocytes % (auto) 11.3 %; Mean Corpuscular Hemoglobin 28.7 pg (25.0-34.0); Mean Corpuscular Hgb Conc 32.7 g/dL (32.0-36.0); Mean Corpuscular Volume 87.9 fL (80.0-100.0); Mean Platelet Volume 9.6 fL (9.4-12.3); Monocytes # (auto) 1.31 K/uL (0.24-0.82); Monocytes % (auto) 9.9 %; Neutrophils # (auto) 10.29 K/uL (1.4-6.5); Neutrophils % (auto) 77.5 %; Platelet Count 294 K/uL (130-400); RDW Coefficient of Variation 13.6 % (11.5-14.5); RDW Standard Deviation 44.2 fL (36.4-46.3); Red Blood Count 4.04 M/uL (3.93-5.22); White Blood Count 13.26 K/ul (4.8-10.8)
[2022-08-18 08:14] LABS: BUN Creatinine Ratio 29.1 (10-20); Calcium 8.3 mg/dl (8.5-10.1); Creatinine Clr Calc Pharmacy 90.5 ml/min; Est GFR (African American) 104.1 ml/min; Est GFR (Non-African American) 89.8 ml/min; Magnesium 1.8 mg/dl (1.7-2.4); Potassium 3.5 mmol/L (3.5-5.1)
--- NOTE | 2022-08-18 08:16 | Hospitalist Progress Note ---
Date of Service August 18, 2022 Assessment & Plan (1) Bilateral interstitial pneumonia: (2) Hypothyroidism: (3) Postherpetic neuralgia: Plan Janie Rodriguez is a 77-year-old female with a past medical history significant for asthma, bronchiectasis, nontuberculous Mycobacterium infection, and hypothyroidism who is presenting today at the referral of her traffic maintenance supervisor for findings of pneumonia on outpatient x-ray. She has been having ongoing weakness, shortness of breath, cough, and fevers/chills at home since Monday. Bilateral Interstitial Pneumonia -4 days of fever/chills, shortness of breath, cough leading to presentation at ED -CXR: Interval worsening of bilateral lower lung predominant airspace opacities which may represent infectious/inflammatory process. -WBC slightly down at 13.26 w/ left shift, afebrile today and normal HR. On Room air comfortably -Able to get adequate PO intake, discontinued IV fluids -Due to allergies to penicillins and cephalosporins, patient started on Levaquin. -COVID/flu/RSV negative, Procal and lactate negative -Continue home inhalers -Hope to d/c tomorrow if symptoms continue to improve Postherpetic Neuralgia -Shingles in 2008, has had residual pain ever since -Noted 10/10 pain intensity overnight, improved some with morphine -Pain stable throughout the day Hypothyroidism -Continue levothyroxine. Per patient, previous dosage given today was not upd ated to current dose -Checked [facility] PowerChart- 50mcg is most recent dosage -Updated dose on medication order Admission and Anticipated Discharge Date Admission Date: August 17, 2022 Supervising Physician Co-Signing Physician Notes Sepsis due to bilateral interstitial pneumonia 77 yo female seen and examined by myself at bedside. Patient reports feeling better today. She has been intermittently on supplemental oxygen and then back on room air. She appears to be responding to Fluroquinolone treatment. If she continues to rapidly improve, may consider discharge in AM. I discussed plan of care with Dr. Rios and patient. I reviewed above note and agree with it. Subjective Patient seen and examined at bedside. States she is feeling fatigued but breathing comfortably. Has been drinking plenty of water, but hasn't eating much because she doesn't like the food here. Denies fever/body aches/chills. Review of Systems Review of Systems: As per HPI Physical Exam Constitutional: WD/WN, vitals as above ENMT: external ear and nose normal, oropharynx normal Neck: trachea midline, no thyromegaly Respiratory: no increased work of breathing. decreased breath sounds at bilateral lower lobes Cardiovascular: RRR, no murmur, no edema Skin: no rashes, warm and dry Psychiatric: A+Ox3, euthymic affect Results & Data Results & Data ([facility]) Vital Signs (Past 12 Hours) Vital Signs Temp Pulse Pulse Resp BP BP Pulse Ox 08/18/22 08:05 36.8 C 73 18 135/73 97 08/18/22 07:56 74 08/18/22 07:23 90 H 97 08/18/22 03:05 36.8 C 61 16 133/73 98 08/17/22 23:48 80 08/18/22 00:09 08/18/22 00:09 37 C 82 18 153/69 H 93 08/17/22 23:52 37 C 82 18 153/69 H 93 08/17/22 23:52 08/17/22 22:30 82 22 96 08/17/22 22:30 139/68 08/17/22 22:00 83 30 H 96 08/17/22 22:00 148/61 H 08/17/22 21:30 166/60 H 08/17/22 21:30 87 27 H 100 08/17/22 21:00 82 33 H 98 08/17/22 21:00 149/61 H 08/17/22 21:30 99 08/17/22 21:28 90 20 99 08/17/22 20:30 93 H 26 H 95 08/17/22 20:30 166/53 H Pulse Ox O2 Del Method O2 Del Method O2 Flow Rate O2 Flow Rate 08/18/22 08:05 Nebulizer 08/18/22 07:56 08/18/22 07:23 Nasal Cannula 2 08/18/22 03:05 Nasal Cannula 2 08/17/22 23:48 08/18/22 00:09 Nasal Cannula 2 08/18/22 00:09 Nasal Cannula 2 08/17/22 23:52 Nasal Cannula 2 08/17/22 23:52 93 Nasal Cannula 2 08/17/22 22:30 08/17/22 22:30 08/17/22 22:00 08/17/22 22:00 08/17/22 21:30 08/17/22 21:30 Nasal Cannula 2 08/17/22 21:00 08/17/22 21:00 08/17/22 21:30 Nasal Cannula 2 08/17/22 21:28 Nasal Cannula 2 08/17/22 20:30 Nasal Cannula 2 08/17/22 20:30 Resident Activity Tracking Resident Involvement: Resident Care Provided Care Provided: Adult Hospital Medicine
[2022-08-18] MEDS: guaiFENesin 600 MG TABCR PO SCH ×2 (08:52→20:43)
[2022-08-18] MEDS: MULTIVITAMIN TAB PO SCH (08:52)
[2022-08-18] MEDS: MAGNESIUM OXIDE 400 MG TAB PO SCH ×2 (08:52→20:43)
[2022-08-18] MEDS: FLUTICASONE FUROATE 200MCG 14 PUFFS/INHALER INH SCH (08:52)
[2022-08-18] MEDS ORDERED: levoFLOXacin/D5W 750 MG/150 ML BAG IV SCH (21:00)
[2022-08-19] MEDS ORDERED: LEVOTHYROXINE SODIUM 50 MCG TABLET PO SCH (06:30)
[2022-08-19] MEDS: FLUTICASONE FUROATE 200MCG 14 PUFFS/INHALER INH SCH (07:23)
[2022-08-19] MEDS: MAGNESIUM OXIDE 400 MG TAB PO SCH (07:24)
[2022-08-19] MEDS: MULTIVITAMIN TAB PO SCH (07:24)
[2022-08-19] MEDS: guaiFENesin 600 MG TABCR PO SCH (07:24)
[2022-08-19] MEDS: SODIUM CHLOR 7% 4 ML NEB INH SCH (07:35)
--- NOTE | 2022-08-19 09:51 | Discharge Summary ---
Date of Service August 19, 2022 Admission HPI Per Admitting Provider Janie Rodriguez is a 77-year-old female with a past medical history significant for asthma, bronchiectasis, nontuberculous Mycobacterium infection, and hypothyroidism who is presenting today at the referral of her sand mixer operator for findings of pneumonia on outpatient x-ray. She has been having ongoing weakness, shortness of breath, cough, and fevers/chills at home since Monday. Her sand mixer operator ordered COVID/flu/RSV panel as well as chest x-ray. Negative for viruses, however CXR with interval worsening of bilateral lower lung predominant airspace opacities. She was encouraged to present to the ED for further evaluation. On presentation, she is febrile at 38.3 C, tachycardic with an HR in 100s, 88% on room air, and hypertensive. Placed on 2 L NC with improvement. Labs are notable for leukocytosis 15 with left shift, otherwise unremarkable without electrolyte abnormalities or renal impairment. COVID, flu, RSV rechecked today and are negative. She was given 1L NSS bolus and a dose of levofloxacin in the ED. Admission Exam Per Admitting Provider Constitutional: fever/chills, weakness, fatigue x 4 days; no myalgias, anorexia, night sweats Eyes: No diplopia, no worsening or blurred vision ENT: normal hearing, no trouble swallowing Respiratory: cough, increased sputum, dyspnea on exertion x 4 days Cardiovascular: No chest pain, tightness or palpitations Abdomen: No pain, nausea, vomiting, diarrhea or constipation : Denies dysuria, hematuria, increased urgency/frequency, urinary retention Musculoskeletal: No joint pain, calf pain, swelling Neurologic: No weakness, numbness/tingling, or balance problems Psychiatric: No anxiety or depression Skin: No rash or itch Principal Diagnosis Bilateral Interstitial Pneumonia Discharge Exam Constitutional WD/WN, vitals as above ENMT external ear and nose normal, oropharynx normal Neck trachea midline, no thyromegaly Respiratory no increased work of breathing, slightly diminished lung sounds in bilateral lung bases, no cough/wheeze/rhonchi Cardiovascular RRR, no murmur, no edema Skin no rashes, warm and dry Psychiatric A+Ox3, euthymic affect Discharge Data Allergies Allergy/AdvReac Type Severity Reaction Status Date / Time Cephalosporins Allergy Severe Verified 07/20/22 10:09 lidocaine Allergy Severe Verified 07/20/22 10:09 tree and shrub pollen Allergy Severe Verified 07/20/22 10:09 cefaclor Allergy Unknown . Verified 07/20/22 10:09 iodine Allergy Unknown HIVES Verified 07/20/22 10:09 Penicillins Allergy Unknown RASH, RXN Verified 07/20/22 10:09 TO AMOXICILLIN [place] Allergy Unknown UNKNOWN. Uncoded 07/20/22 10:09 Consultations 08/17/22 20:55 ED Decision to Admit Stat Hospital Course (1) Bilateral interstitial pneumonia: (2) Hypothyroidism: (3) Postherpetic neuralgia: Plan Janie Rodriguez is a 77-year-old female with a past medical history significant for asthma, bronchiectasis, nontuberculous Mycobacterium infection, and hypothyroidism who is presenting today at the referral of her sand mixer operator for findings of pneumonia on outpatient x-ray. She has been having ongoing weakness, shortness of breath, cough, and fevers/chills at home since Monday. A CXR showed "Interval worsening of bilateral lower lung predominant airspace opacities which may represent infectious/inflammatory process". COVID/Flu/RSV negative. Treated with Levaquin, received 2 doses during stay and initially received some IV fluids but discontinued as she had adequate PO intake. WBC slightly elevated at admission but now downtrending at 10.62. Has required supplemental oxygen occasionally but today completed ambulatory pulse ox- stable and able to be discharged without supplemental oxygen. Physical exam on day of discharge showed improvement on lung auscultation, still some minor decreased sounds but noticeably improved. Patient was discharged on 3 more days of PO Levaquin. During stay had one episode of increased side/back pain from postherpetic neuralgia- responded well to pain medication. Encouraged patient to follow up with PCP in 1-2 weeks for hospital discharge appointment, patient states she would rather see Dr. Sorto for follow up- let patient know that it may be difficult to find availability in that time frame. Total Time Total Time Spent Total Time Spent (In Minutes): .35 Discharge Plan Discharge Items Patient Disposition: Home - Self-Care Reason For Visit: PNEUMONIA Discharge Diagnosis: Pneumonia Activity: Per Instructions section Non-emergency contact: Primary Care Provider and Seafood Harvester Call non-emergency contact if: your symptoms worsen and your temperature is above 101.5 Follow-up/Referrals: David Khoury MD [Primary Care Provider] - Diet: Regular Addtl Attending Provider Instructions: Janie, you were admitted to the hospital for concern of pneumonia. You tested negative for flu, COVID, and RSV, but given your symptoms and chest x-ray you were diagnosed with bilateral interstitial pneumonia. You were started on an IV antibiotic, Levaquin, (as to avoid your allergies of cephalosporins and penicillins) which you received 2 doses of during your stay. You responded quickly to treatment and were able to be weaned off of supplemental oxygen. * You will be sent home on 3 more days of an oral antibiotic (same antibiotic Levaquin as you received here but in an oral form instead of IV). This was sent to your pharmacy. You will take the antibiotic in the evening and be sure to not take it on an empty stomach. * You can continue to take Guaifenasin (Mucinex) for chest congestion, this can be purchased over the counter * Please follow up with your primary care doctor in the next 1-2 weeks for a hospital discharge follow up appointment. I will reach out to [facility] and they will be contacting you to schedule that appointment. * If your symptoms suddenly worsen and you become more short of breath, high fever, etc. please return to the ER to be evaluated Pending Studies at Discharge: No Stand-Alone Forms: [facility], Smoking Cessation Medications and DC Order Prescriptions: New levothyroxine [Synthroid] 50 mcg Tablet 50 mcg PO DAILYBB Qty: 0 0RF guaifenesin [Mucinex] 600 mg Tablet Extended Release 12hr 600 mg PO Q12 Qty: 0 0RF levofloxacin 750 mg tablet 750 mg PO DAILY 3 Days Qty: 3 0RF Rx Instructions: Take 1 tablet daily in the evening Continued Arnuity Ellipta 200 mcg/actuation blister with device 1 inh inhalation DAILY Qty: 30 5RF sodium chloride 7 % solution for nebulization 4 ml inhalation BID Qty: 240 5RF albuterol sulfate 2.5 mg /3 mL (0.083 %) solution for nebulization 2.5 mg inhalation BID PRN (Reason: shortness of breath or wheezing) Qty: 180 4RF (DME) Flutter Valve Device See Rx Instructions .ROUTE .MEDSUPPLY Qty: 1 0RF Rx Instructions: As directed (DME) nebulizer accessories Misc See Rx Instructions .Route Qty: 1 0RF Rx Instructions: As directed cholecalciferol (vitamin D3) 1,000 unit capsule 1,000 unit PO DAILY multivitamin tablet 1 tab PO DAILY magnesium gluconate [Mag-G] 27 mg magnesium (500 mg) tablet 27 mg PO BID hydroxyzine HCl 25 mg tablet 25 mg PO BID PRN (Reason: itching) Qty: 30 0RF Discontinued oseltamivir [Tamiflu] 75 mg capsule 75 mg PO BID 5 Days Qty: 10 0RF levothyroxine 50 mcg tablet 25 mcg PO DAILY Qty: 30 (DME) Oxygen Home Liters Per Minute See Rx Instructions .MEDSUPPLY Qty: 1 0RF Rx Instructions: Please D/C oxygen. Lifetime need. Discharge Orders: Discharge Order (Routine); Ordered 08/19/22 Ordered By: Santa Rios Admission Data Admit Date/Time: 08/17/22 21:42 Attending Provider: Berhane Sin Admit Provider: Chon Mayer Primary Care Provider: David Khoury Other Providers: Chon Mayer Other Interventions: Discharge Summary Assessment (RN) Last Done: 08/19/22 09:28 Supervising Physician Co-Signing Physician Notes Sepsis due to bilateral interstitial pneumonia 77 yo female seen and examined by myself at bedside. Patient reports feeling better today. Now back on room air. She responded to Fluroquinolone treatment. Patient improved and will plan to discharge while completing current plan. I discussed plan of care with Dr. Rios and patient. I reviewed above note and agree with it.
[2022-08-19 10:05] LABS: Basophils # (auto) 0.04 K/uL (0-0.2); Basophils % (auto) 0.4 %; Eosinophils # (auto) 0.08 K/uL (0-0.50); Eosinophils % (auto) 0.8 %; Hematocrit (blood only) 38.1 % (34.1-44.9); Hemoglobin 12.3 g/dl (12.0-16.0); Immature Granulocytes # (auto) 0.04 K/uL (0.00-0.02); Immature Granulocytes % (auto) 0.4 %; Lymphocytes # (auto) 1.48 K/uL (1.2-3.4); Lymphocytes % (auto) 13.9 %; Mean Corpuscular Hemoglobin 28.5 pg (25.0-34.0); Mean Corpuscular Hgb Conc 32.3 g/dL (32.0-36.0); Mean Corpuscular Volume 88.4 fL (80.0-100.0); Mean Platelet Volume 9.6 fL (9.4-12.3); Monocytes # (auto) 0.66 K/uL (0.24-0.82); Monocytes % (auto) 6.2 %; Neutrophils # (auto) 8.32 K/uL (1.4-6.5); Neutrophils % (auto) 78.3 %; Platelet Count 347 K/uL (130-400); RDW Coefficient of Variation 13.6 % (11.5-14.5); RDW Standard Deviation 44.1 fL (36.4-46.3); Red Blood Count 4.31 M/uL (3.93-5.22); White Blood Count 10.62 K/ul (4.8-10.8)
--- NOTE | 2022-08-19 22:12 | Electrocardiogram Report ---
Test Reason : Blood Pressure : / mmHG Vent. Rate : 087 BPM Atrial Rate : 087 BPM P-R Int : 150 ms QRS Dur : 080 ms QT Int : 362 ms P-R-T Axes : 067 045 052 degrees QTc Int : 435 ms Normal sinus rhythm Normal ECG When compared with ECG of 07-APR-2010 06:20, No significant change was found Confirmed by Randell Fleming ([id number]) on 08/19/2022 10:12:21 PM Referred By: REFERRED SELF Confirmed By:Randell Fleming
--- NOTE | 2022-08-21 19:01 | Billing Data ---
Date of Service August 19, 2022 Coding Level of Care Code D/C DAY MANAGEMENT >30 MINS Time Spent (min) 35
== END 2022-08-19 10:23 | disposition home or self-care (01) | DRG 872 ==
LOC: ED 17:44 → 2N 21:42 → SUATTDRO 21:42 → 2N 23:01

== ENCOUNTER 2022-09-15 14:44 | Inpatient (IN) ==
--- NOTE | 2022-09-15 15:50 | XRay Report ---
XR chest 2V PA/lateral CLINICAL HISTORY: SOB TECHNIQUE: 2 views of the chest were obtained. Comparison: Comparison is made to chest radiograph 08/17/2022 FINDINGS: No lines and tubes are seen. The cardiomediastinal silhouette is normal. Bilateral lower lung predomi nant airspace opacities are unchanged from prior exam. No evidence of pleural effusion or pneumothora x. Multilevel degenerative changes are seen in the spine. IMPRESSION: Redemonstration of bilateral lower lung predominant airspace opacities compatible with infectious/inf lammatory process. ACT 112: Negative or not required by law. Electronically signed by: Randall Leon M.D. 09/15/2022 3:49 PM
--- NOTE | 2022-09-15 17:04 | Emergency Department Note ---
Impression & Plan Bilateral interstitial pneumonia, Hypoxia ED Provider Note NAME: CRISTY CALLOWAY AGE: 77 SEX: F : 1945 ARRIVES VIA: Walk-In INFORMANT: Patient, ED PROVIDER(S): Robin Pablo DO CHIEF COMPLAINT: Difficulty breathing HPI: The patient is a 77-year-old female who presented to the emergency department for an evaluation of difficulty breathing. The patient has been noticing productive cough as well as difficulty breathing over the course the last month. The patient had an admission to our facility recently. This was for pneumonia. She has been on 2 different antibiotics including doxycycline and Levaquin. The patient states that she went to see her family doctor today for a follow-up appointment. She was noted to have hypoxia and she was sent to the emergency department for further evaluation. The patient denies having any hemoptysis. She denies having any lower extremity swelling. She does have significant dyspnea on exertion. ROS: See above HPI for pertinent positives & negatives. A total of 10 systems reviewed and were otherwise negative. PAST MEDICAL HISTORY: See Below PAST SURGICAL HISTORY: See Below FAMILY HISTORY: See Below SOCIAL HISTORY: See Below HOME MEDICATIONS: See Below ALLERGIES: See Below VITALS: See Below PHYSICAL EXAMINATION: GENERAL: Patient is awake alert in no acute distress patient is resting comfortably and showing no signs of anxiety EYES: The conjunctivae are clear. The pupils are round and reactive. EARS, NOSE, MOUTH AND THROAT: The nose is without any evidence of any deformity. Mucous membranes are moist. Tongue is midline. NECK: The neck is nontender and supple. RESPIRATORY: Diminished breath sounds are noted throughout. There were rales at both bases. There is mild conversational dyspnea. CARDIOVASCULAR: Regular rate and rhythm noted there no murmurs rubs or gallops normal S1 normal S2. GASTROINTESTINAL: The abdomen is soft. Abdomen is nontender. MUSCULOSKELETAL/EXTREMITIES: There is no evidence of gross deformity full range of motion is noted in the hips and shoulders. SKIN: There is no obvious evidence of any rash. There are no petechiae, pallor or cyanosis noted. NEUROLOGIC: Patient is awake alert and oriented x3 MEDICAL DECISION MAKING: The patient is a 77-year-old female whose been having difficulty breathing for the last month. She was seen in our facility recently. She was admitted to our facility. She has been on 2 different antibiotics. She has been seen by her pulmonary physician. She had a follow-up appointment today with her primary care physician. The patient was sent to the emergency department because of worsening symptoms and hypoxia. The patient had abnormal lung sounds. She was also found have hypoxia with any exertion and even at rest. I discussed patient's laboratory and radiographic studies with her. Given her recent admission as well as her hypoxia further radiographic studies were obtained to ensure this was not pulmonary embolism. The patient was treated with IV antibiotics. I discussed the patient's condition with the on-call [facility]. They have agreed to evaluate the patient in the emergency department for further management and disposition. Triage Nursing notes reviewed. Prior medical records reviewed Vital Signs: reviewed and remarkable for elevated blood pressure and hypoxia. Differential diagnosis: Reactive airway disease, pneumonia, pneumothorax, COPD, CHF, infections, cardiac ischemia, pulmonary embolism, musculoskeletal, gastrointestinal, as well as other pathologies. ER treatment provided: See below Diagnostics interpreted by me: ECG: EKG was obtained in the emergency department. My interpretation is normal sinus rhythm at 94 bpm. There is no ectopy. There is no acute ST segment abnormalities noted. This was compared to a tracing from August 17, 2022. No changes were noted. Cardiac Monitoring: An order was placed for continuous cardiac monitoring. The monitor shows a rate of 94 bpm with sinus rhythm. Laboratory studies: As stated above and show below. Imaging studies: See below. Radiographic imaging was reviewed by myself Consultation(s): I discussed this case with Dr. Mayer who is on-call for the [facility] group. Past Med/Surg History Medical History Abdominal pain Asthmatic bronchitis Atypical mycobacterial infection Bronchiectasis Chronic shortness of breath Cough Cough productive of purulent sputum Fever RADHA (mycobacterium avium-intracellulare) Pneumonia Postherpetic neuralgia Recurrent pneumonia Surgical History History of bronchoscopy History of partial mastectomy of left breast History of tonsillectomy History of total abdominal hysterectomy and bilateral salpingo-oophorectomy Family History Sister Cervical cancer Mother Diabetes Other Colon cancer Crohn's disease Heart disease Social History Smoking Status: Never smoker Tobacco Type: Cigarettes Hx Alcohol Use: Yes Alcohol type: wine Hx Substance Use: No Preferred Language: Dutch Communication Ability: Effective Room Service Waiter Required: No Beliefs That Will Affect Care: Muslim Current Living Situation: Spouse Feels Safe at Home: Yes Assistive Devices: None Allergies Allergies Allergy/AdvReac Type Severity Reaction Status Date / Time Cephalosporins Allergy Severe Unknown Verified 09/15/22 21:33 lidocaine Allergy Severe Rash Verified 09/15/22 21:33 tree and shrub pollen Allergy Severe Unknown Verified 09/15/22 21:33 cefaclor Allergy Unknown . Verified 09/15/22 21:33 iodine Allergy Unknown HIVES Verified 09/15/22 21:33 Penicillins Allergy Unknown RASH, RXN Verified 09/15/22 21:33 TO AMOXICILLIN strawberry Allergy Hives Verified 09/15/22 21:33 Whitehead Allergy Unknown UNKNOWN. Uncoded 09/15/22 21:33 Home Meds Home Medications Medication Instructions Recorded Confirmed cholecalciferol (vitamin D3) 25 2,000 unit PO QPM 04/10/19 09/15/22 mcg (1,000 unit) capsule magnesium gluconate 27 mg 27 mg PO QPM 11/24/21 09/15/22 magnesium (500 mg) tablet (Mag-G) fluticasone furoate 200 1 inh inhalation QAM 09/15/22 09/15/22 mcg/actuation blister powder for inhalation (Arnuity Ellipta) multivit with 1 tab PO QPM 09/15/22 09/15/22 [id number] 8 mg iron-400 mcg-300 mcg tablet (Centrum Silver Women) Previous Rx's Medication Instructions Recorded nebulizer accessories #1 ea 03/11/22 Flutter Valve #1 ea 07/25/22 albuterol sulfate 2.5 mg/3 mL 2.5 mg (3 mL) inhalation BID PRN 07/29/22 (0.083 %) solution for nebulization shortness of breath or wheezing #180 mL guaifenesin 600 mg tablet, 600 mg PO Q12 #0 tabs 08/19/22 extended release 12 hr (Mucinex) levothyroxine 50 mcg tablet 50 mcg PO DAILYBB #0 tabs 08/19/22 (Synthroid) Results & Data (ED) Vital Signs Vital Signs - 24 hr 09/15/22 15:01 09/15/22 15:07 09/15/22 17:20 Temperature 36.9 C Temperature Source Temporal Artery Scan Pulse Rate 92 H Pulse Rate [Right Finger] 88 Pulse Rate from SpO2 Sensor Respiratory Rate 18 24 Respiratory Effort / Characteristics Non-Labored Spontaneous Respiratory Depth Normal Normal Respiratory Pattern Regular Blood Pressure 169/75 H Blood Pressure [Right Arm] 168/71 H Blood Pressure Mean 106 Blood Pressure Mean [Right Arm] 103 Blood Pressure Position Sitting Pulse Oximetry 88 L 88 L 99 Oxygen Delivery Method Room Air Nasal Cannula Nasal Cannula Oxygen Flow Rate 0 2 Sepsis Recent Fever Within 48 Hours Yes Sepsis New/Unexplained Change in Mental Status N/A Sepsis Action Taken by Nursing No Action Required Oxygen Flow Rate - Titration 2 Pulse Oximetry Post Tiitration 94 09/15/22 17:58 09/15/22 17:58 09/15/22 18:08 Temperature Temperature Source Pulse Rate Pulse Rate [Right Finger] 88 Pulse Rate from SpO2 Sensor Respiratory Rate 20 Respiratory Effort / Characteristics Spontaneous Labored Non-Labored Respiratory Depth Normal Respiratory Pattern Blood Pressure Blood Pressure [Right Arm] 173/69 H Blood Pressure Mean Blood Pressure Mean [Right Arm] 103 Blood Pressure Position Pulse Oximetry 97 Oxygen Delivery Method Nasal Cannula Nasal Cannula Nasal Cannula Oxygen Flow Rate 2 2 Sepsis Recent Fever Within 48 Hours Sepsis New/Unexplained Change in Mental Status Sepsis Action Taken by Nursing Oxygen Flow Rate - Titration Pulse Oximetry Post Tiitration 09/15/22 19:30 09/15/22 20:30 09/15/22 21:00 Temperature Temperature Source Pulse Rate 83 81 85 Pulse Rate [Right Finger] Pulse Rate from SpO2 Sensor 84 85 Respiratory Rate 24 21 25 H Respiratory Effort / Characteristics Respiratory Depth Respiratory Pattern Blood Pressure 155/87 H 161/70 H Blood Pressure [Right Arm] Blood Pressure Mean 109 100 Blood Pressure Mean [Right Arm] Blood Pressure Position Pulse Oximetry 97 93 95 Oxygen Delivery Method Nasal Cannula Oxygen Flow Rate 2 Sepsis Recent Fever Within 48 Hours Sepsis New/Unexplained Change in Mental Status Sepsis Action Taken by Nursing Oxygen Flow Rate - Titration Pulse Oximetry Post Tiitration 09/15/22 21:30 Temperature Temperature Source Pulse Rate 94 H Pulse Rate [Right Finger] Pulse Rate from SpO2 Sensor Respiratory Rate 25 H Respiratory Effort / Characteristics Respiratory Depth Respiratory Pattern Blood Pressure 154/71 H Blood Pressure [Right Arm] Blood Pressure Mean 98 Blood Pressure Mean [Right Arm] Blood Pressure Position Pulse Oximetry 95 Oxygen Delivery Method Oxygen Flow Rate Sepsis Recent Fever Within 48 Hours Sepsis New/Unexplained Change in Mental Status Sepsis Action Taken by Nursing Oxygen Flow Rate - Titration Pulse Oximetry Post Tiitration Home Medications Current Medication List: was personally reviewed by me Laboratory Data Attestation: I reviewed the patient's lab results. 09/15/22 17:18 09/15/22 17:18 Lab Results 09/15/22 09/15/22 09/15/22 Range/Units 17:18 17:18 17:18 WBC 21.63 H (4.8-10.8) K/ul RBC 4.76 (3.93-5.22) M/uL Hgb 13.4 (12.0-16.0) g/dl Hct 41.9 (34.1-44.9) % MCV 88.0 (80.0-100.0) fL MCH 28.2 (25.0-34.0) pg MCHC 32.0 (32.0-36.0) g/dL RDW Std Deviation 43.3 (36.4-46.3) fL RDW Coeff of Ara 13.4 (11.5-14.5) % Plt Count 336 (130-400) K/uL MPV 9.4 (9.4-12.3) fL Immature Gran % (Auto) 0.5 % Neut % (Auto) 84.2 % Lymph % (Auto) 8.6 % [place]go % (Auto) 5.5 % Eos % (Auto) 0.8 % Baso % (Auto) 0.4 % Neut # (Auto) 18.19 H (1.4-6.5) K/uL Lymph # (Auto) 1.87 (1.2-3.4) K/uL [place]go # (Auto) 1.20 H (0.24-0.82) K/uL Eos # (Auto) 0.18 (0-0.50) K/uL Baso # (Auto) 0.09 (0-0.2) K/uL Immature Gran # (Auto) 0.10 H (0.00-0.02) K/uL PT 11.2 (9.0-12.0) Seconds INR 1.1 (0.9-1.1) APTT 29.6 (21.0-31.0) Seconds PTT Ratio 1.1 VBG pH (7.36-7.41) VBG pCO2 (38-50) mmHg VBG pO2 mmHg VBG HCO3 mmol/L VBG O2 Saturation % VBG Base Excess mEq/L Sodium 136 (136-145) mmol/L Potassium 4.0 (3.5-5.1) mmol/L Chloride 100 (98-107) mmol/L Carbon Dioxide 27 (21-32) mmol/L Anion Gap 9 (3-11) BUN 20 (6-23) mg/dl Creatinine 0.73 (0.6-1.2) mg/dl Est Cr Clr Drug Dosing 68.0 ml/min Est GFR ( Amer) 91.4 ml/min Est GFR (Non-Af Amer) 78.9 ml/min BUN/Creatinine Ratio 27.4 H (10-20) Glucose 98 (70-99(Fasting)) mg/dl Calcium 9.6 (8.5-10.1) mg/dl Magnesium 2.0 (1.7-2.4) mg/dl Total Bilirubin 0.4 (0.2-1.0) mg/dl AST 17 (13-39) U/L ALT 14 (7-52) U/L Alkaline Phosphatase 100 (34-104) U/L Troponin I High Sens 13.7 (0-14) pg/ml B-Natriuretic Peptide (0-100) pg/ml Total Protein 8.5 H (6.0-8.3) gm/dl Albumin 3.9 (3.4-5.0) gm/dl Globulin 4.6 H (2.5-4.0) gm/dl Albumin/Globulin Ratio 0.8 L (0.9-2) SARS-CoV-2 (PCR) (Negative) Influenza Type A (PCR) (Neg) Influenza Type B (PCR) (Neg) RSV (RT-PCR) (Neg) 09/15/22 09/15/22 09/15/22 Range/Units 17:18 17:21 18:29 WBC (4.8-10.8) K/ul RBC (3.93-5.22) M/uL Hgb (12.0-16.0) g/dl Hct (34.1-44.9) % MCV (80.0-100.0) fL MCH (25.0-34.0) pg MCHC (32.0-36.0) g/dL RDW Std Deviation (36.4-46.3) fL RDW Coeff of Ara (11.5-14.5) % Plt Count (130-400) K/uL MPV (9.4-12.3) fL Immature Gran % (Auto) % Neut % (Auto) % Lymph % (Auto) % Hidalgo % (Auto) % Eos % (Auto) % Baso % (Auto) % Neut # (Auto) (1.4-6.5) K/uL Lymph # (Auto) (1.2-3.4) K/uL [place]go # (Auto) (0.24-0.82) K/uL Eos # (Auto) (0-0.50) K/uL Baso # (Auto) (0-0.2) K/uL Immature Gran # (Auto) (0.00-0.02) K/uL PT (9.0-12.0) Seconds INR (0.9-1.1) APTT (21.0-31.0) Seconds PTT Ratio VBG pH 7.37 (7.36-7.41) VBG pCO2 47 (38-50) mmHg VBG pO2 37 mmHg VBG HCO3 27 mmol/L VBG O2 Saturation 66.9 % VBG Base Excess 1.3 mEq/L Sodium (136-145) mmol/L Potassium (3.5-5.1) mmol/L Chloride (98-107) mmol/L Carbon Dioxide (21-32) mmol/L Anion Gap (3-11) BUN (6-23) mg/dl Creatinine (0.6-1.2) mg/dl Est Cr Clr Drug Dosing ml/min Est GFR ( Amer) ml/min Est GFR (Non-Af Amer) ml/min BUN/Creatinine Ratio (10-20) Glucose (70-99(Fasting)) mg/dl Calcium (8.5-10.1) mg/dl Magnesium (1.7-2.4) mg/dl Total Bilirubin (0.2-1.0) mg/dl AST (13-39) U/L ALT (7-52) U/L Alkaline Phosphatase (34-104) U/L Troponin I High Sens (0-14) pg/ml B-Natriuretic Peptide 77 (0-100) pg/ml Total Protein (6.0-8.3) gm/dl Albumin (3.4-5.0) gm/dl Globulin (2.5-4.0) gm/dl Albumin/Globulin Ratio (0.9-2) SARS-CoV-2 (PCR) NEGATIVE (Negative) Influenza Type A (PCR) Negative (Neg) Influenza Type B (PCR) Negative (Neg) RSV (RT-PCR) Negative (Neg) Administered Medications Discontinued Medications Albuterol (Albut/Ipratrop 3mg/0.5mg Neb 3 Ml Vial) 3 ml NEB NOW STA; Protocol Stop: 09/15/22 20:08 Last Admin: 09/15/22 20:22 Dose: 3 ml Documented By: LIZETH Diphenhydramine HCl (Diphenhydramine 50 Mg/Ml Vial) 50 mg IV ONE ONE Stop: 09/15/22 20:57 Last Admin: 09/15/22 18:14 Dose: Not Given Documented By: ANTONIA Diphenhydramine HCl (Diphenhydramine 50 Mg/Ml Vial) Confirm Administered Dose 50 mg .ROUTE .STK-MED ONE Stop: 09/15/22 17:27 Last Admin: 09/15/22 18:02 Dose: 50 mg Documented By: ANTONIA Levofloxacin/Dextrose (Levaquin/D5w) 750 mg in 150 mls @ 100 mls/hr IV NOW STA Stop: 09/15/22 21:36 Last Infusion: 09/15/22 22:05 Dose: 0 mls/hr Documented By: Admin: 09/15/22 20:22 Dose: 100 mls/hr Documented By: LIZETH Ioversol (Optiray 320 500ml) 112 ml IV ONCE ONE Stop: 09/15/22 19:06 Last Admin: 09/15/22 19:11 Dose: 112 ml Documented By: WESLY Methylprednisolone (Methylprednisolone 40 Mg/Ml Vial) 40 mg IV NOW STA Stop: 09/15/22 16:57 Last Admin: 09/15/22 18:02 Dose: 40 mg Documented By: ANTONIA Imaging Data Radiologist's Impression: Chest X-Ray 09/15/22 15:09 XR chest 2V PA/lateral CLINICAL HISTORY: SOB TECHNIQUE: 2 views of the chest were obtained. Comparison: Comparison is made to chest radiograph 08/17/2022 FINDINGS: No lines and tubes are seen. The cardiomediastinal silhouette is normal. Bilateral lower lung predominant airspace opacities are unchanged from prior exam. No evidence of pleural effusion or pneumothorax. Multilevel degenerative changes are seen in the spine. IMPRESSION: Redemonstration of bilateral lower lung predominant airspace opacities compatible with infectious/inflammatory process. ACT 112: Negative or not required by law. Electronically signed by: Randall Leon M.D. 09/15/2022 3:49 PM Chest CTA 09/15/22 16:55 CT angio chest PE protocol CLINICAL HISTORY: sent by PCP for CT, poss PE TECHNIQUE: Multidetector row helical CT of the chest was performed with angiographic protocol. Coronal and sagittal reformations were obtained. Coronal and sagittal MIPS were obtained from the axial data set and were submitted for review. Automated dose lowering techniques and/or adjustment according to patient size were utilized for this exam. CT DOSE: 261.86 mGy.cm Comparison: Comparison is made to CT chest 09/11/2013 and chest radiograph 09/15/2022 FINDINGS: Lungs and pleura: Extensive tree in bud nodularity is seen favoring the lower lobes. Bronchiectasis and mucous plugging are seen. Heart and pericardium: Heart size is normal. No pericardial effusion. Vessels: No evidence of pulmonary embolism. Mediastinum and rafael: Subcentimeter lymph nodes are seen. Chest wall and lower neck: Unremarkable. Abdomen: Unremarkable. Bones: Degenerative changes in the thoracic spine. IMPRESSION: 1. No pulmonary embolus is seen. 2. Bilateral tree in bud nodules favoring the lower lobes are compatible with infectious/inflammatory process. No jocelyne consolidation is seen. ACT 112: Negative or not required by law. Electronically signed by: Randall Leon M.D. 09/15/2022 7:38 PM Discharge Plan Visit Data Chief Complaint: Illness Stated Complaint: PERSISTENT SYMTOMS FROM PNEUMONIA ED Provider: Robin Pablo Discharge Problem: Bilateral interstitial pneumonia, Hypoxia Patient Disposition: Being Evaluated by Hospitalist Forms Stand Alone Forms: [facility] [place] [facility] Prescriptions Prescriptions: No Action albuterol sulfate 2.5 mg /3 mL (0.083 %) solution for nebulization 2.5 mg inhalation BID PRN (Reason: shortness of breath or wheezing) Qty: 180 4RF (DME) Flutter Valve Device See Rx Instructions .ROUTE .MEDSUPPLY Qty: 1 0RF Rx Instructions: As directed (DME) nebulizer accessories Misc See Rx Instructions .Route Qty: 1 0RF Rx Instructions: As directed cholecalciferol (vitamin D3) 1,000 unit capsule 2,000 unit PO QPM magnesium gluconate [Mag-G] 27 mg magnesium (500 mg) tablet 27 mg PO QPM levothyroxine [Synthroid] 50 mcg Tablet 50 mcg PO DAILYBB Qty: 0 0RF guaifenesin [Mucinex] 600 mg Tablet Extended Release 12hr 600 mg PO Q12 Qty: 0 0RF Arnuity Ellipta 200 mcg/actuation blister with device 1 inh INHALATION QAM Centrum Silver Women 8 mg iron-400 mcg-300 mcg Tablet 1 tab PO QPM Referrals Referrals: David Khoury MD [Primary Care Provider] -
[2022-09-15] MEDS ORDERED: diphenhydrAMINE 50 MG/ML VIAL ONE (17:26)
[2022-09-15 17:35] LABS: Basophils # (auto) 0.09 K/uL (0-0.2); Basophils % (auto) 0.4 %; Eosinophils # (auto) 0.18 K/uL (0-0.50); Eosinophils % (auto) 0.8 %; Hematocrit (blood only) 41.9 % (34.1-44.9); Hemoglobin 13.4 g/dl (12.0-16.0); Immature Granulocytes % (auto) 0.5 %; Lymphocytes # (auto) 1.87 K/uL (1.2-3.4); Lymphocytes % (auto) 8.6 %; Mean Corpuscular Hemoglobin 28.2 pg (25.0-34.0); Mean Platelet Volume 9.4 fL (9.4-12.3); Monocytes % (auto) 5.5 %; Neutrophils # (auto) 18.19 K/uL (1.4-6.5); Neutrophils % (auto) 84.2 %; Platelet Count 336 K/uL (130-400); RDW Coefficient of Variation 13.4 % (11.5-14.5); RDW Standard Deviation 43.3 fL (36.4-46.3); Red Blood Count 4.76 M/uL (3.93-5.22); White Blood Count 21.63 K/ul (4.8-10.8)
[2022-09-15 17:46] LABS: INR 1.1 (0.9-1.1); Partial Thromboplastin Ratio 1.1; Partial Thromboplastin Time 29.6 Seconds (21.0-31.0); Prothrombin Time 11.2 Seconds (9.0-12.0)
[2022-09-15 17:58] LABS: Albumin Globulin Ratio 0.8 (0.9-2); Albumin Level 3.9 gm/dl (3.4-5.0); BUN Creatinine Ratio 27.4 (10-20); Bilirubin,Total 0.4 mg/dl (0.2-1.0); Calcium 9.6 mg/dl (8.5-10.1); Est GFR (African American) 91.4 ml/min; Est GFR (Non-African American) 78.9 ml/min; Globulin 4.6 gm/dl (2.5-4.0); Total Protein 8.5 gm/dl (6.0-8.3)
[2022-09-15 18:03] LABS: Troponin I High Sensitivity 13.7 pg/ml (0-14)
[2022-09-15 18:27] LABS: Influenza A virus by PCR Negative (Neg); Influenza B virus by PCR Negative (Neg); RSV by PCR Negative (Neg); SARS CoV2 RNA(COVID-19) Ceph NEGATIVE (Negative)
[2022-09-15 18:47] LABS: Base Excess VBG 1.3 mEq/L; HCO3 VBG 27 mmol/L; Oxygen Saturation VBG 66.9 %; PCO2 VBG 47 mmHg (38-50); PO2 VBG 37 mmHg; pH VBG 7.37 (7.36-7.41)
[2022-09-15] MEDS ORDERED: OPTIRAY 320 500ml IV ONE (19:05)
--- NOTE | 2022-09-15 19:41 | CT Scan Report ---
CT angio chest PE protocol CLINICAL HISTORY: sent by PCP for CT, poss PE TECHNIQUE: Multidetector row helical CT of the chest was performed with angiographic protocol. Parker l and sagittal reformations were obtained. Coronal and sagittal MIPS were obtained from the axial viky a set and were submitted for review. Automated dose lowering techniques and/or adjustment according to patient size were utilized for this exam. CT DOSE: 261.86 mGy.cm Comparison: Comparison is made to CT chest 09/11/2013 and chest radiograph 09/15/2022 FINDINGS: Lungs and pleura: Extensive tree in bud nodularity is seen favoring the lower lobes. Bronchiectasis a nd mucous plugging are seen. Heart and pericardium: Heart size is normal. No pericardial effusion. Vessels: No evidence of pulmonary embolism. Mediastinum and rafael: Subcentimeter lymph nodes are seen. Chest wall and lower neck: Unremarkable. Abdomen: Unremarkable. Bones: Degenerative changes in the thoracic spine. IMPRESSION: 1. No pulmonary embolus is seen. 2. Bilateral tree in bud nodules favoring the lower lobes are compatible with infectious/inflammator y process. No jocelyne consolidation is seen. ACT 112: Negative or not required by law. Electronically signed by: Randall Leon M.D. 09/15/2022 7:38 PM
[2022-09-15] MEDS ORDERED: levoFLOXacin/D5W 750 MG/150 ML BAG IV STA (20:07)
[2022-09-15] MEDS ORDERED: ALBUT/IPRATROP 3MG/0.5MG NEB 3 ML VIAL NEB STA (20:07)
--- NOTE | 2022-09-15 20:21 | History & Physical Report ---
Date of Service September 15, 2022 Assessment & Plan (1) Recurrent pneumonia: Plan: 77yo female with a history of COPD and hypothyroidism presents with a few-week history of fatigue, productive cough, and SOB with exertion. SOB with exertion, productive cough, fatigue, COPD Patient presents with the above symptoms which improved while on levaquin IV (during prior hospitalization) and then later while on doxycycline, but both times recurred after finishing antibiotics At PCP's office earlier today, patient became hypoxic to 88% with minimal exertion Admission labs notable for leukocytosis to 21.6; no anemia, no electrolyte abnormalities, hsTroponin not elevated, BNP not elevated, covid/flu/RSV PCR negative CXR: redemonstration of bilateral lower lung predominant airspace opacities compatible with infectious/inflammatory process CTA chest: no pulmonary embolus is seen; bilateral tree in bud nodules favoring the lower lobes are compatible with infectious/inflammatory process; no jocelyne consolidation is seen Differential broad but includes bacterial/viral/fungal pneumonia, bronchiolitis, neoplasm, others Blood cultures pending Pulmonology consulted Patient was started on levaquin in ED - will continue this overnight, appreciate pulmonology's insight regarding antibiotic choice Supplemental oxygen as-needed, goal: 91%+ Incentive spirometry, flutter valve Duonebs prn, mucinex nadya, continue home inhaler regimen Elevated BP: elevated to 150-170s/60-80s on admission, asymptomatic, has since fallen to 155/87; continue to monitor Hypothyroidism: continue home levothyroxine FEN: NPO at midnight, NSS @ 80mL/hr (x1 bag ordered) Code status: full code DVT ppx: SCDs Consults: pulmonology PT/OT: ordered Dispo: med/telemetry (2) Hypoxia: (3) Cough: (4) Dyspnea: (5) Fatigue: (6) Fever: (7) Hypothyroidism: (8) COPD, moderate: History of Present Illness Primary Care Provider: David Khoury MD 77yo female with a history of COPD and hypothyroidism presents with a few-week history of fatigue, productive cough, and SOB with exertion. Notably, patient was recently hospitalized at [facility] with pneumonia from 08/16 - 08/19; at that time patient was treated with IV levaquin. Patient initially felt well upon discharge, but then about a week later, started feeling worse with fatigue, prod uctive cough, and SOB with exertion. Patient then called her nuclear fuel enrichment technician, who started patient on a seven-day course of doxycycline. Again, patient started to feel better while on antibiotics, but within ~three days of finishing the course of doxycycline, patient's symptoms returned. Over the past week, patient has had an intermittent fever (max 100.5), persistent productive cough, and persistent SOB with exertion. Patient saw her PCP earlier today, who recommended ED evaluation after patient's spO2 fell to 88% with minimal exertion. Patient denies CP, abdominal pain, nausea, vomiting, diarrhea, or other symptoms. Upon arrival, vitals were notable for elevated BP (150-170s/60-80s) and hypoxia (88% on RA, improved to 90s on 2L NC); no tachycardia, no tachypnea, patient afebrile. Initial labs were notable for leukocytosis (21.6); no anemia, platelets wnl, no electrolyte abnormalities, creatinine not elevated, LFTs wnl, Tbili not elevated, hsTroponin wnl, BNP not elevated, covid/flu/RSV PCR negative. In the ED, patient was given an albuterol neb, methylprednisolone 40mg IV (x1), and was started on levofloxacin IV. EKG: NSR, no overt ischemic change CXR: redemonstration of bilateral lower lung predominant airspace opacities compatible with infectious/inflammatory process CTA chest: no pulmonary embolus is seen; bilateral tree in bud nodules favoring the lower lobes are compatible with infectious/inflammatory process; no jocelyne consolidation is seen Surrogate decision-maker in case of an emergency: mars Florentinolton (cell: [phone]) Allergies Allergy/AdvReac Type Severity Reaction Status Date / Time Cephalosporins Allergy Severe Unknown Verified 09/15/22 21:33 lidocaine Allergy Severe Rash Verified 09/15/22 21:33 tree and shrub pollen Allergy Severe Unknown Verified 09/15/22 21:33 cefaclor Allergy Unknown . Verified 09/15/22 21:33 iodine Allergy Unknown HIVES Verified 09/15/22 21:33 Penicillins Allergy Unknown RASH, RXN Verified 09/15/22 21:33 TO AMOXICILLIN strawberry Allergy Hives Verified 09/15/22 21:33 Whitehead Allergy Unknown UNKNOWN. Uncoded 09/15/22 21:33 Home Medications Medication Instructions Recorded Confirmed Type cholecalciferol (vitamin D3) 25 2,000 unit PO QPM 04/10/19 09/15/22 History mcg (1,000 unit) capsule magnesium gluconate 27 mg 27 mg PO QPM 11/24/21 09/15/22 History magnesium (500 mg) tablet (Mag-G) nebulizer accessories #1 ea 03/11/22 09/15/22 Rx Flutter Valve #1 ea 07/25/22 09/15/22 Rx albuterol sulfate 2.5 mg/3 mL 2.5 mg (3 mL) inhalation BID PRN 07/29/22 09/15/22 Rx (0.083 %) solution for nebulization shortness of breath or wheezing #180 mL guaifenesin 600 mg tablet, 600 mg PO Q12 #0 tabs 08/19/22 09/15/22 Rx extended release 12 hr (Mucinex) levothyroxine 50 mcg tablet 50 mcg PO DAILYBB #0 tabs 08/19/22 09/15/22 Rx (Synthroid) fluticasone furoate 200 1 inh inhalation QAM 09/15/22 09/15/22 History mcg/actuation blister powder for inhalation (Arnuity Ellipta) multivit with 1 tab PO QPM 09/15/22 09/15/22 History kornghoz-feyy-SE-lutein 8 mg iron-400 mcg-300 mcg tablet (Centrum Silver Women) Past Med/Surg History Medical History (Updated 09/16/22 @ 09:47 by Alex Sorto MD) Abdominal pain Asthmatic bronchitis Atypical mycobacterial infection Bronchiectasis Bronchiectasis with (acute) exacerbation Chronic shortness of breath Cough Cough productive of purulent sputum Fever Hypoxic RADHA (mycobacterium avium-intracellulare) Pneumonia Postherpetic neuralgia Recurrent pneumonia Surgical History History of bronchoscopy History of partial mastectomy of left breast History of tonsillectomy History of total abdominal hysterectomy and bilateral salpingo-oophorectomy Family History Sister Cervical cancer Mother Diabetes Other Colon cancer Crohn's disease Heart disease Social History Smoking Status: Never smoker Tobacco Type: Cigarettes Hx Alcohol Use: No Hx Substance Use: No Preferred Language: Turkish Communication Ability: Effective Fieldwork Coordinator Required: No Beliefs That Will Affect Care: Zoroastrian Current Living Situation: Spouse Other Information That Helps Us Care for You: No Feels Safe at Home: Yes Safety Concerns: Feels Safe At This Time Assistive Devices: Cane Review of Systems Review of Systems: See HPI Physical Exam Physical Exam: Constitutional: well-appearing, no acute distress CV: regular rhythm, no murmur appreciated, extremities well-perfused, no LE edema Resp: breath sounds diminished at bases, CTABL in upper magdaleno, no wheezes/rales/rhonchi appreciated, no increased work of breathing GI: soft, nondistended, nontender, BS normoactive MSK: no gross deformities appreciated Skin: warm, dry, no rash appreciated Neuro: alert, oriented, no focal neurologic deficit appreciated Results & Data Results & Data ([facility]) Vital Signs (Past 12 Hours) Vital Signs Temp Pulse Pulse Resp BP BP Pulse Ox 09/15/22 19:30 83 24 155/87 H 97 09/15/22 18:08 88 20 173/69 H 97 09/15/22 17:58 09/15/22 17:58 09/15/22 17:20 88 24 168/71 H 99 09/15/22 15:07 88 L 09/15/22 15:01 36.9 C 92 H 18 169/75 H 88 L O2 Del Method O2 Flow Rate 09/15/22 19:30 09/15/22 18:08 Nasal Cannula 2 09/15/22 17:58 Nasal Cannula 2 09/15/22 17:58 Nasal Cannula 09/15/22 17:20 Nasal Cannula 2 09/15/22 15:07 Nasal Cannula 0 09/15/22 15:01 Room Air Supervising Physician Co-Signing Physician Notes Attending addendum: I have physically seen this patient, have supervised the medical residents activities, and agree with the H&P unless as otherwise noted. Assessment and Plan: Recurrent pneumonia/failure of outpatient treatment- Chest x-ray with bilateral lower lobe infiltrates, right greater than left CTA chest negative for PE, does suggest bilateral lower lobe infectious/inflammatory process Duonebs every 4 hours while awake and every 2 hours when necessary. Continue Levaquin IV as noted Supplemental oxygen, titrate to keep pulse ox 91-93% Guaifenesin extended release 1200 mg p.o. twice daily Use usual home inhalers Consulting pulmonology as noted Remaining orders and notations as noted Resident Activity Tracking Resident Involvement: Resident Care Provided and Sample Patternmaker Coverage Note Care Provided: Adult Hospital Medicine
[2022-09-15] MEDS ORDERED: ALBUT/IPRATROP 3MG/0.5MG NEB 3 ML VIAL NEB PRN (20:42)
[2022-09-15] MEDS ORDERED: diphenhydrAMINE 50 MG/ML VIAL IV ONE (20:56)
[2022-09-15] MEDS ORDERED: ACETAMINOPHEN 325 MG TAB ONE (22:16)
[2022-09-15] MEDS ORDERED: ACETAMINOPHEN 325 MG TAB PO STA (22:20)
[2022-09-15] MEDS: guaiFENesin 600 MG TABCR PO SCH (22:23)
[2022-09-15] MEDS ORDERED: ONDANSETRON INJ 2 MG/ML 2 ML VIAL IV PRN (23:03)
[2022-09-15] MEDS ORDERED: SODIUM CHLORIDE 0.9% 1000ML 1,000 ML IV SCH (23:03)
[2022-09-16] MEDS: LEVOTHYROXINE SODIUM 50 MCG TABLET PO SCH (05:49)
[2022-09-16 07:38] LABS: Hematocrit (blood only) 35.6 % (34.1-44.9); Hemoglobin 11.8 g/dl (12.0-16.0); Mean Corpuscular Hemoglobin 28.1 pg (25.0-34.0); Mean Corpuscular Hgb Conc 33.1 g/dL (32.0-36.0); Mean Corpuscular Volume 84.8 fL (80.0-100.0); Mean Platelet Volume 9.6 fL (9.4-12.3); Platelet Count 323 K/uL (130-400); RDW Coefficient of Variation 13.3 % (11.5-14.5); RDW Standard Deviation 41.4 fL (36.4-46.3); White Blood Count 17.03 K/ul (4.8-10.8)
[2022-09-16] MEDS ORDERED: FLUTICASONE FUROATE 200MCG 14 PUFFS/INHALER INH SCH (09:00)
[2022-09-16] MEDS: guaiFENesin 600 MG TABCR PO SCH ×2 (09:15→20:05)
--- NOTE | 2022-09-16 09:48 | Pulmonary Consultation ---
Date of Consultation September 16, 2022 Assessment & Plan (1) Bronchiectasis with (acute) exacerbation: (2) RADHA (mycobacterium avium-intracellulare): (3) Hypoxic: Plan We will proceed with bronchoscopy today to evaluate for recurrent nontuberculous Mycobacterium infection. Will order hypertonic saline twice daily, flutter valve and percussive vest therapy. We will discontinue the fluticasone inhaler and start the patient on Brovana twice daily. Continue to wean oxygen to [place] in saturations of 88 to 92%. Last PFT was in 2012 which revealed severe airflow obstruction with an FEV1 of 63%. She also had severe air trapping with an RV of 269%. DLCO was mildly reduced to 71%. History of Present Illness Reason for Consultation: Recurrent infection and hypoxia Attending Physician: Hardik Tomlinson MD History of Present Illness 77-year-old female with a history of bronchiectasis presenting to the hospital due to increasing shortness of breath and cough. She is known to me in the outpatient setting. I last saw her 07/25/2022. She has seen an infectious disease doctor in the outpatient setting on September 06 for evaluation of RADHA. She has been reluctant to undergo bronchoscopy in the past, but is willing to undergo bronchoscopy today due to recurrent symptoms which include shortness of breath and productive cough. She has been unable to give an adequate sputum sample in the past for AFB testing. Her labs are significant for leukocytosis. She had a CTA of the chest yesterday which did not reveal any pulmonary embolism, but extensive tree-in-bud nodularity was seen in the lower lobes. Bronchiectasis is noted. She was discharged from the hospital in July for similar symptoms and was sent home with levofloxacin. She is currently requiring 3 L of supplemental oxygen and maintaining saturations in the high 90s. Allergies Allergy/AdvReac Type Severity Reaction Status Date / Time Cephalosporins Allergy Severe Unknown Verified 09/15/22 21:33 lidocaine Allergy Severe Rash Verified 09/15/22 21:33 tree and shrub pollen Allergy Severe Unknown Verified 09/15/22 21:33 cefaclor Allergy Unknown . Verified 09/15/22 21:33 iodine Allergy Unknown HIVES Verified 09/15/22 21:33 Penicillins Allergy Unknown RASH, RXN Verified 09/15/22 21:33 TO AMOXICILLIN strawberry Allergy Hives Verified 09/15/22 21:33 Whitehead Allergy Unknown UNKNOWN. Uncoded 09/15/22 21:33 Home Medications Medication Instructions Recorded Confirmed Type cholecalciferol (vitamin D3) 25 2,000 unit PO QPM 04/10/19 09/15/22 History mcg (1,000 unit) capsule magnesium gluconate 27 mg 27 mg PO QPM 11/24/21 09/15/22 History magnesium (500 mg) tablet (Mag-G) nebulizer accessories #1 ea 03/11/22 09/15/22 Rx Flutter Valve #1 ea 07/25/22 09/15/22 Rx albuterol sulfate 2.5 mg/3 mL 2.5 mg (3 mL) inhalation BID PRN 07/29/22 09/15/22 Rx (0.083 %) solution for nebulization shortness of breath or wheezing #180 mL guaifenesin 600 mg tablet, 600 mg PO Q12 #0 tabs 08/19/22 09/15/22 Rx extended release 12 hr (Mucinex) levothyroxine 50 mcg tablet 50 mcg PO DAILYBB #0 tabs 08/19/22 09/15/22 Rx (Synthroid) fluticasone furoate 200 1 inh inhalation QAM 09/15/22 09/15/22 History mcg/actuation blister powder for inhalation (Arnuity Ellipta) multivit with 1 tab PO QPM 09/15/22 09/15/22 History fespyvex-gyhr-DX-lutein 8 mg iron-400 mcg-300 mcg tablet (Centrum Silver Women) Patient History Medical History (Updated 09/16/22 @ 09:47 by Alex Sorto MD) Abdominal pain Asthmatic bronchitis Atypical mycobacterial infection Bronchiectasis Bronchiectasis with (acute) exacerbation Chronic shortness of breath Cough Cough productive of purulent sputum Fever Hypoxic RADHA (mycobacterium avium-intracellulare) Pneumonia Postherpetic neuralgia Recurrent pneumonia Surgical History History of bronchoscopy History of partial mastectomy of left breast History of tonsillectomy History of total abdominal hysterectomy and bilateral salpingo-oophorectomy Family History Sister Cervical cancer Mother Diabetes Other Colon cancer Crohn's disease Heart disease Social History Smoking Status: Never smoker Tobacco Type: Cigarettes Hx Alcohol Use: No Hx Substance Use: No Preferred Language: Georgian Communication Ability: Effective Manager Acute Required: No Beliefs That Will Affect Care: Yazidi Current Living Situation: Spouse Other Information That Helps Us Care for You: No Feels Safe at Home: Yes Safety Concerns: Feels Safe At This Time Assistive Devices: None Review of Systems Review of Systems: All systems reviewed & are unremarkable except as noted in HPI & below Physical Exam Physical Exam: Constitutional: Patient appears to be of their stated age. Patient is in no apparent distress. Patient is well-developed. Eyes: Pupils are equal round and reactive to light. Conjunctivae are normal. Anicteric sclera. Ears nose, mouth and throat: Exam deferred. Neck: Trachea is midline. Visual inspection is normal. Respiratory: Mild expiratory wheeze. Prolonged phase of exhalation. Cardiovascular: Regular rate and rhythm. No murmurs. No edema. Gastrointestinal: Deferred. Musculoskeletal: No cyanosis. Patient is able to move all extremities. Skin: No rashes, warm dry and intact. Neurologic: No obvious focal neurological deficits seen. Psychiatric: Alert and oriented x3 with a euthymic affect. Results & Data Results & Data ([facility]) Vital Signs (Past 12 Hours) Vital Signs Temp Pulse Pulse Resp BP BP Pulse Ox 09/16/22 07:45 36.5 C 66 18 134/75 98 09/16/22 07:12 63 09/16/22 03:39 104 H 09/16/22 03:30 36.8 C 104 H 22 147/79 H 94 09/16/22 03:30 09/16/22 02:00 80 23 140/64 92 09/16/22 01:30 72 23 147/51 H 93 09/16/22 01:00 69 25 H 139/73 09/16/22 00:30 75 24 141/51 H 09/16/22 00:00 76 23 163/49 H 93 09/15/22 23:30 78 25 H 147/80 H 95 09/15/22 22:00 90 25 H 141/70 H 94 O2 Del Method O2 Flow Rate 09/16/22 07:45 Nasal Cannula 3 09/16/22 07:12 09/16/22 03:39 09/16/22 03:30 Nasal Cannula 3 09/16/22 03:30 Nasal Cannula 3 09/16/22 02:00 09/16/22 01:30 09/16/22 01:00 09/16/22 00:30 09/16/22 00:00 09/15/22 23:30 09/15/22 22:00 PG Care Time/CCT Total # of Minutes Spent Total Time Spent with Patient: Total time spent is greater than 50% in coordination of care (as documented) at patient's floor/unit and/or counseling patient: Coding Level of Care Code 66188 INT INP/OBS CARE MIN Diagnoses Bronchiectasis with (acute) exacerbation J47.1 RADHA (mycobacterium avium-intracellulare) A31.0 Hypoxic R09.02
[2022-09-16 10:09] LABS: BUN Creatinine Ratio 25.9 (10-20); Calcium 8.8 mg/dl (8.5-10.1); Creatinine Clr Calc Pharmacy 85.6 ml/min; Est GFR (African American) 102.3 ml/min; Est GFR (Non-African American) 88.3 ml/min; Potassium 4.5 mmol/L (3.5-5.1)
[2022-09-16] MEDS ORDERED: fentaNYL citrate 100 MCG/2 ML VIAL ONE (11:27)
[2022-09-16] MEDS ORDERED: MIDAZOLAM HCL 5 MG/ML 1 ML VIAL ONE (11:27)
--- NOTE | 2022-09-16 11:44 | History & Physical Bridge Note ---
Date of Service September 16, 2022 History & Physical Bridge Note I have examined the patient, reviewed the History & Physical and in the interval since the performance of the History & Physical I have noted the following changes of clinical significance: no changes noted
--- NOTE | 2022-09-16 12:09 | Pre Anesthesia Assessment ---
Date of Service September 16, 2022 Pre Sedation Assessment Vital Signs Temp Pulse Pulse Resp BP BP Pulse Ox 09/16/22 10:00 09/16/22 11:30 36.6 C 73 18 145/69 H 96 09/16/22 11:14 09/16/22 07:45 36.5 C 66 18 134/75 98 09/16/22 07:12 63 09/16/22 03:39 104 H 09/16/22 03:30 36.8 C 104 H 22 147/79 H 94 09/16/22 03:30 09/16/22 02:00 80 23 140/64 92 09/16/22 01:30 72 23 147/51 H 93 09/16/22 01:00 69 25 H 139/73 09/16/22 00:30 75 24 141/51 H 09/16/22 00:00 76 23 163/49 H 93 09/15/22 23:30 78 25 H 147/80 H 95 09/15/22 22:00 90 25 H 141/70 H 94 09/15/22 21:30 94 H 25 H 154/71 H 95 09/15/22 21:00 85 25 H 161/70 H 95 09/15/22 20:30 81 21 93 09/15/22 19:30 83 24 155/87 H 97 09/15/22 18:08 88 20 173/69 H 97 09/15/22 17:58 09/15/22 17:58 09/15/22 17:20 88 24 168/71 H 99 09/15/22 15:07 88 L 09/15/22 15:01 36.9 C 92 H 18 169/75 H 88 L Pulse Ox Pulse Ox Pulse Ox O2 Del Method O2 Flow Rate O2 Flow Rate O2 Flow Rate 09/16/22 10:00 Nasal Cannula 3 09/16/22 11:30 Nasal Cannula 3 09/16/22 11:14 98 98 91 3 3 09/16/22 07:45 Nasal Cannula 3 09/16/22 07:12 09/16/22 03:39 09/16/22 03:30 Nasal Cannula 3 09/16/22 03:30 Nasal Cannula 3 09/16/22 02:00 09/16/22 01:30 09/16/22 01:00 09/16/22 00:30 09/16/22 00:00 09/15/22:30 09/15/22 22:00 09/15/22 21:30 09/15/22 21:00 09/15/22 20:30 Nasal Cannula 2 09/15/22 19:30 09/15/22 18:08 Nasal Cannula 2 09/15/22 17:58 Nasal Cannula 2 09/15/22 17:58 Nasal Cannula 09/15/22 17:20 Nasal Cannula 2 09/15/22 15:07 Nasal Cannula 0 09/15/22 15:01 Room Air O2 Flow Rate 09/16/22 10:00 09/16/22 11:30 09/16/22 11:14 0 09/16/22 07:45 09/16/22 07:12 09/16/22 03:39 09/16/22 03:30 09/16/22 03:30 09/16/22 02:00 09/16/22 01:30 09/16/22 01:00 09/16/22 00:30 09/16/22 00:00 09/15/22 23:30 09/15/22 22:00 09/15/22 21:30 09/15/22 21:00 09/15/22 20:30 09/15/22 19:30 09/15/22 18:08 09/15/22 17:58 09/15/22 17:58 09/15/22 17:20 09/15/22 15:07 09/15/22 15:01 Cardiovascular RRR, no murmur, no edema + regular rate + S1 normal and + S2 normal no JVD + capillary refill normal Respiratory normal respiratory effort, lungs clear to auscultation Pre-Sedation Airway Assessment Smoking Status: Never smoker Hx Sleep Apnea: Yes Short, Thick Neck: Yes Thyromental Distance: > or= 3.5 Finger Breadths Oral Cavity: + WNL Mallampati Class: III ASA: ASA3 NPO Status Date of Last Intake of Fluids: 09/15/22 Date of Last Intake of Solid Food: 09/15/22 Notes The planned sedation has been discussed with the patient. Informed Consent was obtained. I have identified the patient, determined the appropriateness of sedation and have assessed the patient immediately prior to the procedure. All medicine(s) and interventions are by my order.
--- NOTE | 2022-09-16 12:54 | Post Anesthesia Assessment ---
Date of Service September 16, 2022 Post Sedation Assessment Vital Signs Temp Pulse Pulse Resp BP BP Pulse Ox 09/16/22 12:45 86 16 129/45 L 93 09/16/22 12:43 09/16/22 12:25 79 16 178/53 H 100 09/16/22 12:20 78 16 146/67 H 100 09/16/22 12:30 86 16 149/52 H 93 09/16/22 12:15 76 16 155/65 H 100 09/16/22 10:00 09/16/22 11:30 36.6 C 73 18 145/69 H 96 09/16/22 11:14 09/16/22 07:45 36.5 C 66 18 134/75 98 09/16/22 07:12 63 09/16/22 03:39 104 H 09/16/22 03:30 36.8 C 104 H 22 147/79 H 94 09/16/22 03:30 09/16/22 02:00 80 23 140/64 92 09/16/22 01:30 72 23 147/51 H 93 09/16/22 01:00 69 25 H 139/73 09/16/22 00:30 75 24 141/51 H 09/16/22 00:00 76 23 163/49 H 93 09/15/22 23:30 78 25 H 147/80 H 95 09/15/22 22:00 90 25 H 141/70 H 94 09/15/22 21:30 94 H 25 H 154/71 H 95 09/15/22 21:00 85 25 H 161/70 H 95 09/15/22 20:30 81 21 93 09/15/22 19:30 83 24 155/87 H 97 09/15/22 18:08 88 20 173/69 H 97 09/15/22 17:58 09/15/22 17:58 09/15/22 17:20 88 24 168/71 H 99 09/15/22 15:07 88 L 09/15/22 15:01 36.9 C 92 H 18 169/75 H 88 L Pulse Ox Pulse Ox Pulse Ox O2 Del Method O2 Flow Rate O2 Flow Rate O2 Flow Rate 09/16/22 12:45 Oxymask 4 09/16/22 12:43 Oxymask 09/16/22 12:25 Oxymask 10 09/16/22 12:20 Oxymask 10 09/16/22 12:30 Oxymask 4 09/16/22 12:15 Oxymask 10 09/16/22 10:00 Nasal Cannula 3 09/16/22 11:30 Nasal Cannula 3 09/16/22 11:14 98 98 91 3 3 09/16/22 07:45 Nasal Cannula 3 09/16/22 07:12 09/16/22 03:39 09/16/22 03:30 Nasal Cannula 3 09/16/22 03:30 Nasal Cannula 3 09/16/22 02:00 09/16/22 01:30 09/16/22 01:00 09/16/22 00:30 09/16/22 00:00 09/15/22 23:30 09/15/22 22:00 09/15/22 21:30 09/15/22 21:00 09/15/22 20:30 Nasal Cannula 2 09/15/22 19:30 09/15/22 18:08 Nasal Cannula 2 09/15/22 17:58 Nasal Cannula 2 09/15/22 17:58 Nasal Cannula 09/15/22 17:20 Nasal Cannula 2 09/15/22 15:07 Nasal Cannula 0 09/15/22 15:01 Room Air O2 Flow Rate 09/16/22 12:45 09/16/22 12:43 09/16/22 12:25 09/16/22 12:20 09/16/22 12:30 09/16/22 12:15 09/16/22 10:00 09/16/22 11:30 09/16/22 11:14 0 09/16/22 07:45 09/16/22 07:12 09/16/22 03:39 09/16/22 03:30 09/16/22 03:30 09/16/22 02:00 09/16/22 01:30 09/16/22 01:00 09/16/22 00:30 09/16/22 00:00 09/15/22 23:30 09/15/22 22:00 09/15/22 21:30 09/15/22 21:00 09/15/22 20:30 09/15/22 19:30 09/15/22 18:08 09/15/22 17:58 09/15/22 17:58 09/15/22 17:20 09/15/22 15:07 09/15/22 15:01 Recovery Score Activity: Moves 4 extremities Respiration: Deep Breath/Cough Circulation: +/-20% PreAnes Value Consciousness: Fully Awake Oxygen Saturation: <90% w/ supp O2 Post Anesthesia Score: 8 Discharge Sedation Level of Care: Fast Track Phase II Post Sedation Plan On clinical assessment, the patient appears to have tolerated the sedation without complications. Patient is recovering as anticipated. Patient will continue to be monitored by nursing and may be discharged when sedation discharge criteria are met per below protocol. Upon Completions of procedure up to 15 minutes continue every 5 minute vital signs and the P.A.R. score; then discharge to a Phase I or Fast Track to Phase II per the following guidelines: * Discharge Patient to appropriate Phase II area if PAR is 8 or greater or return to pre- procedure baseline. The post - procedure orders will be as directed. * If PAR score is less than 8 or not return to pre-procedure baseline then patient will follow Phase I monitoring till PAR is reached for Phase II. The Phase I may be done in procedure room or may call to secure a Phase I area. * If naloxone or flumazenil are used for reversal, hold in Phase I for continued monitoring from when last reversal dose was given for a minimum of 60 minutes or longer pending the nurse and/or physician discretion of patient condition before discharge to Phase II. Please call the Sedation Physician to re-evaluate and complete post-note for discharge to Phase II area. Do NOT discharge from procedure sedation or Phase 1 until post- sedation evaluation note is complete by procedure /sedation MD Sedation Discharge Instructions to be given to the patient at discharge to home.
--- NOTE | 2022-09-16 13:30 | Procedure Note ---
Supervising Physician Co-Signing Physician Notes PREOPERATIVE DIAGNOSIS: Recurrent pneumonia POSTOPERATIVE DIAGNOSIS: Recurrent pneumonia PROCEDURE PERFORMED: Flexible fiberoptic bronchoscopy with bronchial washings from the right lower lobe and lingula COMPLICATIONS: None. INDICATION: Evaluate for chronic infection PROCEDURE: After obtaining an informed consent, the patient was brought to the Bronchoscopy Suite. The patient had appropriate oxygen, blood pressure, heart rate, and respiratory rate monitoring applied and monitored continuously throughout the procedure. Supplemental oxygen via nasal cannula as per nursing records was applied to the nasopharynx with adequate saturations achieved. Topical anesthesia with nebulized 1% lidocaine was achieved. Subsequent to this, the patient was premedicated with 2 mg of midazolam and 100 mcg of fentanyl. The bronchoscope was inserted via the bite-block. Vocal cords appeared to be moving normally. Trachea appeared normal. Ana appeared sharp. Bilateral tracheobronchial tree inspection was performed. Thick mucus noted emanating from the lower lobes bilaterally. No obvious lesions seen. I instilled 100 cc of saline into the right lower lobe and aspirated approximately 40 mL of fluid back. We then did washings of the lingula with 60 cc of saline and aspirated a pproximately 30 back. This will be sent for culture and cytology testing. The patient tolerated the procedure well. The scope was completely withdrawn. Recommendations: Follow cell counts, cultures and cytology. High likelihood of nontuberculous mycobacterial infection. [facility] [place] Procedure Codes (Charges) Pulmonary/Thoracic Procedure 1: Pulmonary and Thoracic: 25937 Dx bronchoscopy/wash
[2022-09-16 14:48] LABS: Eosinophil Body Fluid Man 3 %; Fluid Mono/Macrophage 6 %; Lymphocyte Body Fluid Man 11 %; Neutrophil Body Fluid Man 90 %
[2022-09-16 14:49] LABS: Eosinophil Body Fluid Man 2 %; Fluid Mono/Macrophage 3 %; Lymphocyte Body Fluid Man 1 %; Neutrophil Body Fluid Man 94 %
--- NOTE | 2022-09-16 15:20 | Electrocardiogram Report ---
Test Reason : Blood Pressure : / mmHG Vent. Rate : 094 BPM Atrial Rate : 094 BPM P-R Int : 158 ms QRS Dur : 086 ms QT Int : 354 ms P-R-T Axes : 065 058 066 degrees QTc Int : 442 ms Normal sinus rhythm Normal ECG When compared with ECG of 17-AUG-2022 19:53, No significant change was found Confirmed by Randell Fleming ([id number]) on 09/16/2022 3:20:05 PM Referred By: David Khoury Confirmed By:Randell Fleming
[2022-09-16] MEDS: ACETAMINOPHEN 500 MG TAB PO PRN (15:55)
--- NOTE | 2022-09-16 16:23 | Hospitalist Progress Note ---
Date of Service September 16, 2022 Assessment & Plan (1) Hypoxic: Plan: She appears to have acute hypoxic respiratory failure. Continue oxygen per nasal cannula to maintain saturation greater than 90%. She probably will need home oxygen (2) Bronchiectasis with (acute) exacerbation: Plan: Bronchoscopy completed today. Cultures pending. Appreciate pulmonary medicine consultation and recommendations. Currently on intravenous Levaquin, day 2. Mycobacterium avium intracellular is a consideration. (3) Hypothyroidism: Plan: Replacement therapy (4) Postherpetic neuralgia: Plan: Chronic. Tylenol as needed Plan Continue intravenous antibiotics and supplemental oxygen. Hopefully home tomorrow, September 17 Admission and Anticipated Discharge Date Admission Date: September 15, 2022 Subjective Alert and oriented post bronchoscopy. Cultures are pending. She will remain on Levaquin for now. There is the possibility she could have Mycobacterium AVM intracellular air however. No overt wheezing at this time. She remains on oxygen and may need home oxygen for a while. Possibly home tomorrow, September 17 Review of Systems Review of Systems: Constitutional-no fever or chills ENT-no blurred vision, no double vision, no epistaxis, no sore throat Respiratory-no cough, no wheezing. She notices shortness of breath with exertion Cardiac-no palpitations, no chest pain, no syncope GI-no nausea, vomiting, diarrhea, melena, hematochezia -no urinary retention, no urinary incontinence, no dysuria, no hematuria Musculoskeletal-no joint pain, no muscle tenderness Skin-no bruising, no rashes, no pruritus Neuro-no isolated weakness, no paresthesia, no weakness Psych-no depression, no anxiety Physical Exam Physical Exam: General-alert and oriented x3, no fevers, no chills HEENT-head atraumatic and normocephalic, pupils equal and reactive to light, extraocular muscles intact Neck-no lymphadenopathy or thyromegaly, trachea midline Chest-diminished breath sounds bilaterally. Scattered faint bilateral rhonchi. No wheezing and no dullness Cardiac-regular rate and rhythm, normal S1 and S2 Abdomen-normal bowel sounds, nontender, no hepatosplenomegaly Extremities-no cyanosis, clubbing, or edema Neuro-cranial nerves II through XII intact, motor and sensory function within normal limits, strength symmetrical, no focal deficits Psych-normal affect, normal mood Results & Data Results & Data (MN) Vital Signs (Past 12 Hours) Vital Signs Temp Pulse Pulse Resp BP Pulse Ox Pulse Ox 09/16/22 15:00 107 H 09/16/22 13:59 36.5 C 82 18 128/67 90 09/16/22 13:30 36.8 C 82 18 145/63 H 90 09/16/22 13:05 36.6 C 81 18 129/71 90 09/16/22 12:45 86 16 129/45 L 93 09/16/22 12:43 09/16/22 12:25 79 16 178/53 H 100 09/16/22 12:20 78 16 146/67 H 100 09/16/22 12:30 86 16 149/52 H 93 09/16/22 12:15 76 16 155/65 H 100 09/16/22 10:00 09/16/22 11:30 36.6 C 73 18 145/69 H 96 09/16/22 11:14 98 09/16/22 07:45 36.5 C 66 18 134/75 98 09/16/22 07:12 63 Pulse Ox Pulse Ox O2 Del Method O2 Flow Rate O2 Flow Rate O2 Flow Rate O2 Flow Rate 09/16/22 15:00 09/16/22 13:59 Nasal Cannula 2 09/16/22 13:30 Nasal Cannula 2 09/16/22 13:05 Nasal Cannula 2 09/16/22 12:45 Oxymask 4 09/16/22 12:43 Oxymask 09/16/22 12:25 Oxymask 10 09/16/22 12:20 Oxymask 10 09/16/22 12:30 Oxymask 4 09/16/22 12:15 Oxymask 10 09/16/22 10:00 Nasal Cannula 3 09/16/22 11:30 Nasal Cannula 3 09/16/22 11:14 98 91 3 3 0 09/16/22 07:45 Nasal Cannula 3 09/16/22 07:12 Laboratory Results 09/16/22 07:08 09/16/22 07:08 PG Care Time/CCT Total # of Minutes Spent Total Time Spent with Patient: Total time spent is greater than 50% in coordination of care (as documented) at patient's floor/unit and/or counseling patient: Coding Level of Care Code 29839 SUB INP/OBS CARE 3/50MIN Diagnoses Hypoxic R09.02 Bronchiectasis with (acute) exacerbation J47.1 Hypothyroidism E03.9 Postherpetic neuralgia B02.29
[2022-09-16] MEDS ORDERED: levoFLOXacin/D5W 750 MG/150 ML BAG IV SCH (16:30)
[2022-09-16] MEDS ORDERED: COUGH DROP (SUGAR FREE) LOZ 24 LOZ/1 BOX BUCCAL STA (19:55)
[2022-09-16] MEDS: SODIUM CHLOR 7% 4 ML NEB NEB SCH (20:17)
[2022-09-16] MEDS: FORMOTEROL 20 MCG/2 ML VIAL INH SCH (20:17)
--- NOTE | 2022-09-16 22:46 | Billing Data ---
Date of Service September 16, 2022 Coding Level of Care Code 52113 INT INP/OBS CARE
[2022-09-17] MEDS: ACETAMINOPHEN 500 MG TAB PO PRN ×2 (00:04→08:56)
[2022-09-17] MEDS: LEVOTHYROXINE SODIUM 50 MCG TABLET PO SCH (05:24)
[2022-09-17 06:37] LABS: Basophils # (auto) 0.07 K/uL (0-0.2); Basophils % (auto) 0.4 %; Eosinophils # (auto) 0.17 K/uL (0-0.50); Hematocrit (blood only) 36.7 % (34.1-44.9); Hemoglobin 11.9 g/dl (12.0-16.0); Immature Granulocytes # (auto) 0.07 K/uL (0.00-0.02); Immature Granulocytes % (auto) 0.4 %; Lymphocytes # (auto) 3.29 K/uL (1.2-3.4); Lymphocytes % (auto) 19.8 %; Mean Corpuscular Hemoglobin 27.9 pg (25.0-34.0); Mean Corpuscular Hgb Conc 32.4 g/dL (32.0-36.0); Mean Corpuscular Volume 86.2 fL (80.0-100.0); Mean Platelet Volume 9.8 fL (9.4-12.3); Monocytes % (auto) 4.8 %; Neutrophils # (auto) 12.22 K/uL (1.4-6.5); Neutrophils % (auto) 73.6 %; Platelet Count 369 K/uL (130-400); RDW Coefficient of Variation 13.6 % (11.5-14.5); RDW Standard Deviation 43.3 fL (36.4-46.3); Red Blood Count 4.26 M/uL (3.93-5.22); White Blood Count 16.62 K/ul (4.8-10.8)
[2022-09-17] MEDS: FORMOTEROL 20 MCG/2 ML VIAL INH SCH (07:27)
[2022-09-17] MEDS: SODIUM CHLOR 7% 4 ML NEB NEB SCH (07:27)
[2022-09-17] MEDS: guaiFENesin 600 MG TABCR PO SCH (07:55)
[2022-09-17 09:42] LABS: Potassium 4.3 mmol/L (3.5-5.1)
[2022-09-17 09:47] LABS: Creatinine Clr Calc Pharmacy 64.9 ml/min; Est GFR (African American) 87.1 ml/min; Est GFR (Non-African American) 75.1 ml/min
--- NOTE | 2022-09-17 11:29 | Discharge Summary ---
Date of Service September 17, 2022 Admission HPI Per Admitting Provider 77yo female with a history of COPD and hypothyroidism presents with a few-week history of fatigue, productive cough, and SOB with exertion. Notably, patient was recently hospitalized at [facility] with pneumonia from 08/16 - 08/19; at that time patient was treated with IV levaquin. Patient initially felt well upon discharge, but then about a week later, started feeling worse with fatigue, productive cough, and SOB with exertion. Patient then called her accounts administrator, who started patient on a seven-day course of doxycycline. Again, patient started to feel better while on antibiotics, but within ~three days of finishing the course of doxycycline, patient's symptoms returned. Over the past week, patient has had an intermittent fever (max 100.5), persistent productive cough, and persistent SOB with exertion. Patient saw her PCP earlier today, who recommended ED evaluation after patient's spO2 fell to 88% with minimal exertion. Patient denies CP, abdominal pain, nausea, vomiting, diarrhea, or other symptoms. Upon arrival, vitals were notable for elevated BP (150-170s/60-80s) and hypoxia (88% on RA, improved to 90s on 2L NC); no tachycardia, no tachypnea, patient afebrile. Initial labs were notable for leukocytosis (21.6); no anemia, platelets wnl, no electrolyte abnormalities, creatinine not elevated, LFTs wnl, Tbili not elevated, hsTroponin wnl, BNP not elevated, covid/flu/RSV PCR negative. In the ED, patient was given an albuterol neb, methylprednisolone 40mg IV (x1), and was started on levofloxacin IV. EKG: NSR, no overt ischemic change CXR: redemonstration of bilateral lower lung predominant airspace opacities compatible with infectious/inflammatory process CTA chest: no pulmonary embolus is seen; bilateral tree in bud nodules favoring the lower lobes are compatible with infectious/inflammatory process; no jocelyne consolidation is seen Surrogate decision-maker in case of an emergency: mars Rodriguez (cell: [phone]) Principal Diagnosis Community-acquired pneumonia with exacerbation of COPD and bronchiectasis, acute hypoxic respiratory failure Discharge Exam General-alert and oriented x3, no fevers, no chills HEENT-head atraumatic and normocephalic, pupils equal and reactive to light, extraocular muscles intact Neck-no lymphadenopathy or thyromegaly, trachea midline Chest-diminished breath sounds bilaterally. Scattered faint bilateral rhonchi. No wheezing and no dullness Cardiac-regular rate and rhythm, normal S1 and S2 Abdomen-normal bowel sounds, nontender, no hepatosplenomegaly Extremities-no cyanosis, clubbing, or edema Neuro-cranial nerves II through XII intact, motor and sensory function within normal limits, strength symmetrical, no focal deficits Psych-normal affect, normal mood Discharge Data Allergies Allergy/AdvReac Type Severity Reaction Status Date / Time Cephalosporins Allergy Severe Unknown Verified 09/15/22 21:33 lidocaine Allergy Severe Rash Verified 09/15/22 21:33 tree and shrub pollen Allergy Severe Unknown Verified 09/15/22 21:33 cefaclor Allergy Unknown . Verified 09/15/22 21:33 iodine Allergy Unknown HIVES Verified 09/15/22 21:33 Penicillins Allergy Unknown RASH, RXN Verified 09/15/22 21:33 TO AMOXICILLIN strawberry Allergy Hives Verified 09/15/22 21:33 [place] Allergy Unknown UNKNOWN. Uncoded 09/15/22 21:33 Consultations 09/15/22 20:10 ED Decision to Admit Stat 09/16/22 07:00 Consult Pulmonology Routine Procedures Performed Operation Date: 09/16/22 12:00 Actual Procedures p Bronchoscopy Radiology - Alex Sorto MD Ordered Studies 09/15/22 16:55 CT angio chest PE protocol Stat Hospital Course (1) Recurrent pneumonia: Improved with Levaquin. She will continue with outpatient Levaquin for another 5 days. Sputum fungal smear is negative. Fungal cultures are still pending but hopefully will remain negative. (2) Hypoxia: Acute hypoxic respiratory failure present on admission has now resolved. She is on room air (3) Cough: Due to underlying infectious process. Now resolved (4) Dyspnea: Due to underlying infectious process, now resolved (5) Fatigue: Much improved (6) Fever: Resolved (7) Hypothyroidism: Continue thyroid replacement therapy (8) COPD, moderate: Acute exacerbation has resolved. Continue current treatment plan Plan Home today, September 17. Continue Levaquin for another 5 days Total Time Total Time Spent Total Time Spent (In Minutes): 35 minutes Discharge Plan Discharge Items Patient Disposition: Home - Self-Care Reason For Visit: PNEUMONIA, HYPOXIA Discharge Diagnosis: Suspected community-acquired pneumonia, acute exacerbation bronchiectasis, acute exacerbation COPD, acute hypoxic respiratory failure Activity: Resume your previous activity Non-emergency contact: Primary Care Provider and Hotel Services Supervisor Call non-emergency contact if: your symptoms worsen Follow-up/Referrals: David Khoury MD [Primary Care Provider] - Diet: Heart Healthy Addtl Attending Provider Instructions: Take Levaquin as directed for 5 more days Pending Studies at Discharge: No Stand-Alone Forms: My [employer], Smoking Cessation Medications and DC Order Prescriptions: New arformoterol [Brovana] 15 mcg/2 mL solution for nebulization 2 ml inhalation BID Qty: 60 0RF levofloxacin 500 mg tablet 500 mg PO DAILY 5 Days Qty: 5 0RF Continued (DME) Flutter Valve Device See Rx Instructions .ROUTE .MEDSUPPLY Qty: 1 0RF Rx Instructions: As directed (DME) nebulizer accessories Misc See Rx Instructions .Route Qty: 1 0RF Rx Instructions: As directed cholecalciferol (vitamin D3) 1,000 unit capsule 2,000 unit PO QPM magnesium gluconate [Mag-G] 27 mg magnesium (500 mg) tablet 27 mg PO QPM levothyroxine [Synthroid] 50 mcg Tablet 50 mcg PO DAILYBB Qty: 0 0RF guaifenesin [Mucinex] 600 mg Tablet Extended Release 12hr 600 mg PO Q12 Qty: 0 0RF Arnuity Ellipta 200 mcg/actuation blister with device 1 inh INHALATION QAM Centrum Silver Women 8 mg iron-400 mcg-300 mcg Tablet 1 tab PO QPM Discontinued albuterol sulfate 2.5 mg /3 mL (0.083 %) solution for nebulization 2.5 mg inhalation BID PRN (Reason: shortness of breath or wheezing) Qty: 180 4RF Discharge Orders: Discharge Order (Routine); Ordered 09/17/22 Ordered By: Hardik Tomlinson Admission Data Admit Date/Time: 09/15/22 21:52 Attending Provider: Hardik Tomlinson Admit Provider: David Khoury Primary Care Provider: David Khoury Other Providers: Chon Mayer ; Alex Sorto Coding Level of Care Code HOSP INP/OBS DISCH >30 MIN Diagnoses Recurrent pneumonia J18.9 Hypoxia R09.02 Cough R05.9 Dyspnea R06.00 Fatigue R53.83 Fever R50.9 Hypothyroidism E03.9 COPD, moderate J44.9
--- NOTE | 2022-09-26 13:37 | Coding Query ---
CODING QUERY To promote full compliance with coding requirements relating to patient care, provider participation is requested in all cases of six horse hitch driver uncertainty. Please assist us with the question(s) below: Coding Question(s): The ER documents Interstitial Pneumonia, the H&P documents Recurrent Pneumonia/failure of outpatient treatment, the Pulmonary Consultation documents RADHA (mycobacterium avium-intracellulare) and discussed bronchoscopy to evaluate for recurrent nontuberculous Mycobacterium infection, the 09/16 Bronchoscopy report documents high likelihood of nontuberculous mycobacterial infection, and the 09/16 Hospitalist Progress Note documents, " Mycobacterium avium intracellular is a consideration", and also, "Alert and oriented post bronchoscopy. Cultures are pending. She will remain on Levaquin for now. There is the possibility she could have Mycobacterium AVM intracellular air however", and the Discharge Summary documents Community- acquired pneumonia in the Principal Diagnosis area and recurrent pneumonia under the Hospital Course. It is not clear,the type of Pneumonia or recurrent Pneumonia/infection that was suspected/diagnosed on this admission. 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 ( ) most likely interstitial Pneumonia ( ) most likely Other: Please Specify Physician's Response(s): Thank you Meliza Smalls Principal Diagnosis: "that condition established after study, to be chiefly responsible for occasioning the admission of the patient to the hospital for care." Co-Existing Principal Diagnosis: "when two or more diagnoses equally meet the criteria for principal diagnosis as determined by the circumstances of admission, diagnostic work up, and/or therapy provided, and the Alphabetic Index, Tabular List, or another coding guideline does not provide sequencing direction, any one of the diagnoses may be sequenced first." "When the physician has documented what appears to be a current diagnosis in the body of the record, but has not included the diagnosis in the final diagnostic statement, the physician should be asked whether the diagnosis should be added." (Source [facility]oding [facility] 2 QTR90. p3-4) DARIO
== END 2022-09-17 13:24 | disposition home or self-care (01) | DRG 177 ==
LOC: ED 14:44 → EDINP 21:52 → SUATTDRO 21:52 → 2N 23:03

== ENCOUNTER 2023-06-29 17:22 | Inpatient (IN) ==
--- NOTE | 2023-06-29 17:35 | ED Triage Note ---
Date of Service June 29, 2023 History of Present Illness This patient was briefly evaluated while in triage. An abbreviated physical exam was performed. This patient is a 77-year-old Female who presents to the ED for evaluation of weakness. She states it has been off and on for the past few weeks but has been worsening today. She states she could hardly get dressed this morning. She reports a lung infection and is on Rifampin and Azithromycin. Physical Exam VITALS: Vitals are noted on the nurse's note and reviewed by myself. GENERAL: This is a 77-year-old female, in no acute distress, well-developed well-nourished. HEART: Regular rate and rhythm without murmurs gallops or rubs. LUNGS: Clear to auscultation bilaterally without wheezes, rales or rhonchi. NEURO: Patient was alert and oriented to person place and time. Initial orders for labs and / or imaging were placed and patient was placed in the waiting area until a bed is available. Please see further documentation for the full ED course.
[2023-06-29 18:03] LABS: Basophils # (auto) 0.07 K/uL (0.00-0.20); Basophils % (auto) 0.7 %; Eosinophils # (auto) 0.07 K/uL (0.00-0.50); Eosinophils % (auto) 0.7 %; Hematocrit (blood only) 43.8 % (37.0-47.0); Hemoglobin 14.5 g/dl (12.0-16.0); Immature Granulocytes # (auto) 0.02 K/uL (0.01-0.20); Immature Granulocytes % (auto) 0.2 %; Lymphocytes # (auto) 1.58 K/uL (1.20-3.40); Lymphocytes % (auto) 15.6 %; Mean Corpuscular Hemoglobin 28.9 pg (25.0-34.0); Mean Corpuscular Hgb Conc 33.1 g/dL (32.0-36.0); Mean Corpuscular Volume 87.3 fL (80.0-100.0); Monocytes # (auto) 0.63 K/uL (0.11-0.59); Monocytes % (auto) 6.2 %; Neutrophils # (auto) 7.77 K/uL (1.40-6.50); Neutrophils % (auto) 76.6 %; Platelet Count 310 K/uL (130-400); RDW Coefficient of Variation 12.7 % (11.5-14.5); RDW Standard Deviation 40.2 fL (36.4-46.3); Red Blood Count 5.02 M/uL (4.20-5.40); White Blood Count 10.14 K/ul (4.8-10.8)
[2023-06-29 18:20] LABS: Alanine Aminotransferase 22 U/L (7-52); Albumin Globulin Ratio 1.1 (0.9-2); Albumin Level 4.2 gm/dl (3.4-5.0); Alkaline Phosphatase 109 U/L (34-104); Anion Gap 6 (3-11); Aspartate Aminotransferase 23 U/L (13-39); BUN Creatinine Ratio 41.7 (10-20); Bilirubin,Total 0.4 mg/dl (0.2-1.0); Blood Urea Nitrogen 25 mg/dl (6-23); Calcium 9.5 mg/dl (8.6-10.3); Carbon Dioxide 28 mmol/L (21-32); Chloride 101 mmol/L (98-107); Est GFR (African American) 101.2 ml/min; Est GFR (Non-African American) 87.3 ml/min; Globulin 3.7 gm/dl (2.5-4.0); Glucose 89 mg/dl (70-99(Fasting)); Magnesium 2.2 mg/dl (1.7-2.4); Potassium 3.8 mmol/L (3.5-5.1); Sodium 135 mmol/L (136-145); Total Protein 7.9 gm/dl (6.0-8.3)
[2023-06-29 20:01] LABS: Appearance Urine Clear (Clear); Bacteria Urine Automated Negative (Negative); Bilirubin Urine Negative (Negative); Blood Urine 1+ (Negative); Color Urine Yellow; Glucose Urine UA Negative (Negative); Ketones Urine Trace (Negative); Leukocyte Esterase Urine Negative (Negative); Nitrite Urine Negative (Negative); Protein Urine Negative (Negative); RBC Urine Automated 0-4 /hpf (0-4); Specific Gravity Urine 1.014 (1.000-1.030); Urobilinogen Urine Negative (Negative)
--- NOTE | 2023-06-29 20:10 | Emergency Department Note ---
Impression & Plan Mycobacterial disease, Weakness ED Provider Note NAME: CRISTY CALLOWAY AGE: 77 SEX: F : 1945 ARRIVES VIA: Walk-In INFORMANT: Patient, ED PROVIDER(S): Mercedes Vergara MD CHIEF COMPLAINT: Weakness HPI: This is a 77-year-old female presenting for weakness. Patient states that she woke up today and felt more weak than usual. She states that she has no other symptoms are from weakness. She says she has had no sore throat, congestion, nausea, vomiting, diarrhea, chest pain, shortness of breath, fever, chills. She notes no change in her routine. She states she felt so weak that she is unable to feed her who is bedbound and has a PEG tube. She notes that does not happen before. No blood in her stools. No dysuria or hematuria. ROS: See above HPI for pertinent positives & negatives. A total of 10 systems reviewed and were otherwise negative. PAST MEDICAL HISTORY: See Below PAST SURGICAL HISTORY: See Below FAMILY HISTORY: See Below SOCIAL HISTORY: See Below HOME MEDICATIONS: See Below ALLERGIES: See Below VITALS: See Below PHYSICAL EXAMINATION: General: resting comfortably in no acute distress Head: Normocephalic and atraumatic Eyes: Normal inspection, extraocular muscles intact, no conjunctival pallor Ear, nose, throat: Normal external exam Neck: Normal range of motion Respiratory: Patient is in no respiratory distress, lungs clear to auscultation bilaterally Cardiovascular: RRR without murmur appreciated GI: soft, nontender, no guarding or rebound Extremities: pulses intact with good cap refills, no LE pitting edema or calf tenderness Neuro: The patient awake and alert, appropriately conversive,no focal decifits Skin: Warm, dry, and intact MEDICAL DECISION MAKING: This is a 77-year-old female presenting for weakness. Patient does mention that she has a previous lung infection which she had CT imaging last week. She notes that she is increasingly weak without clear other symptoms. She does not feel sick overall such as a breath or infection type symptoms. Patient's blood work reveals no leukocytosis, anemia, electrolyte disturbance, anion gap, LFT elevation,, troponin elevation, UTI, COVID/flu/mono. Patient continues to state that she feels extremely weak and unable to take care of herself as well as her ailing . CT imaging of the chest reveals possible inflammatory/infectious process/consistent like bacterial infection. This could be potential source as this has been worsening on last CT, 7+ days ago. Will admit for weakness, inflammatory/infectious pulmonary process. Triage Nursing notes reviewed. Prior medical records reviewed Vital Signs: reviewed and remarkable for no significant abnormalities Differential diagnosis: Infection, anemia, mono ER treatment provided: See below Diagnostics interpreted by me: ECG: None Cardiac Monitoring: An order was placed for continuous cardiac monitoring. The monitor shows a rate of 67 with sinus rhythm. Laboratory studies: As stated above and show below. Imaging studies: See below. Radiographic imaging was reviewed by myself Consultation(s): None Past Med/Surg History Medical History Hypoxic Bronchiectasis with (acute) exacerbation Recurrent pneumonia Postherpetic neuralgia Hypothyroidism Asthmatic bronchitis Cough productive of purulent sputum Chronic shortness of breath Bronchiectasis Cough COPD, moderate Postherpetic neuralgia Pneumonia Atypical mycobacterial infection Abdominal pain Surgical History History of tonsillectomy History of total abdominal hysterectomy and bilateral salpingo-oophorectomy History of partial mastectomy of left breast History of bronchoscopy Family History Sister Cervical cancer Mother Diabetes Other Colon cancer Crohn's disease Heart disease Social History Smoking Status: Never smoker Tobacco Type: Cigarettes Hx Alcohol Use: No Hx Substance Use: No Preferred Language: Syrian Communication Ability: Effective Properties Supervisor Required: No Beliefs That Will Affect Care: Yazidism Current Living Situation: Spouse Feels Safe at Home: Yes Assistive Devices: Cane Allergies Allergies Allergy/AdvReac Type Severity Reaction Status Date / Time Cephalosporins Allergy Severe Unknown Verified 06/29/23 22:52 lidocaine Allergy Severe Rash Verified 06/29/23 22:52 tree and shrub pollen Allergy Severe Unknown Verified 06/29/23 22:52 cefaclor Allergy Unknown . Verified 06/29/23 22:52 iodine Allergy Unknown HIVES Verified 06/29/23 22:52 Penicillins Allergy Unknown RASH, RXN Verified 06/29/23 22:52 TO AMOXICILLIN strawberry Allergy Hives Verified 06/29/23 22:52 [place] Allergy Unknown UNKNOWN. Uncoded 06/29/23 22:52 Home Meds Home Medications Medication Instructions Recorded Confirmed cholecalciferol (vitamin D3) 25 2,000 unit PO QAM 04/10/19 06/29/23 mcg (1,000 unit) capsule [id number] 8 mg-folic 400 1 tab PO QAM 09/15/22 06/29/23 mcg-K 50 mcg-lutein 300 mcg tablet (Centrum Silver Women) azithromycin 250 mg tablet 500 mg PO 3XWK 06/29/23 06/29/23 pyridoxine (vitamin B6) 100 mg 100 mg PO DAILY 06/29/23 06/29/23 tablet (Vitamin B-6) rifampin 300 mg capsule 600 mg PO 3XWK 06/29/23 06/29/23 Previous Rx's Medication Instructions Recorded nebulizer accessories #1 ea 03/11/22 Flutter Valve #1 ea 07/25/22 levothyroxine 50 mcg tablet 50 mcg PO DAILYBB #0 tabs 08/19/22 (Synthroid) fluticasone furoate 200 1 inh inhalation QAM #30 ea 01/25/23 mcg/actuation blister powder for inhalation (Arnuity Ellipta) Results & Data (ED) Vital Signs Vital Signs - 24 hr 06/29/23 17:32 06/29/23 19:20 06/29/23 19:24 Temperature 36.8 C Temperature Source Temporal Artery Scan Pulse Rate 75 90 Pulse Rate [Apical] 73 Pulse Rate from SpO2 Sensor Respiratory Rate 18 15 Respiratory Effort / Characteristics Non-Labored Respiratory Depth Normal Respiratory Pattern Regular Blood Pressure 160/66 H Blood Pressure [Right Arm] 184/65 H Blood Pressure Mean 97 Blood Pressure Mean [Right Arm] 104 Pulse Oximetry 96 96 Oxygen Delivery Method Room Air Sepsis Recent Fever Within 48 Hours No Sepsis New/Unexplained Change in Mental Status No Sepsis Action Taken by Nursing No Action Required 06/29/23 19:45 06/29/23 19:45 06/29/23 22:59 Temperature Temperature Source Pulse Rate 67 Pulse Rate [Apical] Pulse Rate from SpO2 Sensor 66 Respiratory Rate 16 Respiratory Effort / Characteristics Respiratory Depth Respiratory Pattern Blood Pressure 167/74 H Blood Pressure [Right Arm] Blood Pressure Mean 105 Blood Pressure Mean [Right Arm] Pulse Oximetry 97 96 Oxygen Delivery Method Room Air Room Air Sepsis Recent Fever Within 48 Hours Sepsis New/Unexplained Change in Mental Status Sepsis Action Taken by Nursing 06/29/23 23:00 06/30/23 00:00 06/30/23 00:13 Temperature Temperature Source Pulse Rate 78 67 Pulse Rate [Apical] 80 Pulse Rate from SpO2 Sensor 76 59 L Respiratory Rate 18 26 H 19 Respiratory Effort / Characteristics Non-Labored Respiratory Depth Normal Respiratory Pattern Regular Blood Pressure 167/74 H 166/84 H Blood Pressure [Right Arm] 167/74 H Blood Pressure Mean 105 111 Blood Pressure Mean [Right Arm] 105 Pulse Oximetry 98 95 95 Oxygen Delivery Method Room Air Sepsis Recent Fever Within 48 Hours Sepsis New/Unexplained Change in Mental Status Sepsis Action Taken by Nursing Laboratory Data 06/29/23 17:43 06/29/23 17:43 Lab Results 06/29/23 06/29/23 06/29/23 Range/Units 17:43 17:45 19:19 WBC 10.14 (4.8-10.8) K/ul RBC 5.02 (4.20-5.40) M/uL Hgb 14.5 (12.0-16.0) g/dl Hct 43.8 (37.0-47.0) % MCV 87.3 (80.0-100.0) fL MCH 28.9 (25.0-34.0) pg MCHC 33.1 (32.0-36.0) g/dL RDW Std Deviation 40.2 (36.4-46.3) fL RDW Coeff of Ara 12.7 (11.5-14.5) % Plt Count 310 (130-400) K/uL MPV 10.0 (9.4-12.4) fL Immature Gran % (Auto) 0.2 % Neut % (Auto) 76.6 % Lymph % (Auto) 15.6 % Hayes % (Auto) 6.2 % Eos % (Auto) 0.7 % Baso % (Auto) 0.7 % Neut # (Auto) 7.77 H (1.40-6.50) K/uL Lymph # (Auto) 1.58 (1.20-3.40) K/uL Hayes # (Auto) 0.63 H (0.11-0.59) K/uL Eos # (Auto) 0.07 (0.00-0.50) K/uL Baso # (Auto) 0.07 (0.00-0.20) K/uL Immature Gran # (Auto) 0.02 (0.01-0.20) K/uL Sodium 135 L (136-145) mmol/L Potassium 3.8 (3.5-5.1) mmol/L Chloride 101 (98-107) mmol/L Carbon Dioxide 28 (21-32) mmol/L Anion Gap 6 (3-11) BUN 25 H (6-23) mg/dl Creatinine 0.60 (0.6-1.2) mg/dl Est Cr Clr Drug Dosing Not Reportable Est GFR ( Amer) 101.2 ml/min Est GFR (Non-Af Amer) 87.3 ml/min BUN/Creatinine Ratio 41.7 H (10-20) Glucose 89 (70-99(Fasting)) mg/dl Lactate (0.4-2.0) mmol/L Calcium 9.5 (8.6-10.3) mg/dl Magnesium 2.2 (1.7-2.4) mg/dl Total Bilirubin 0.4 (0.2-1.0) mg/dl AST 23 (13-39) U/L ALT 22 (7-52) U/L Alkaline Phosphatase 109 H (34-104) U/L Troponin I High Sens 9.7 (0-14) pg/ml Total Protein 7.9 (6.0-8.3) gm/dl Albumin 4.2 (3.4-5.0) gm/dl Globulin 3.7 (2.5-4.0) gm/dl Albumin/Globulin Ratio 1.1 (0.9-2) Urine Color Yellow Urine Appearance Clear (Clear) Urine pH 5.0 (4.5-7.5) Ur Specific [place] 1.014 (1.000-1.030) Urine Protein Negative (Negative) Urine Glucose (UA) Negative (Negative) Urine Ketones Trace H (Negative) Urine Blood 1+ H (Negative) Urine Nitrite Negative (Negative) Urine Bilirubin Negative (Negative) Urine Urobilinogen Negative (Negative) Ur Leukocyte Esterase Negative (Negative) Urine WBC (Auto) 1-5 (0-5) /hpf Urine RBC (Auto) 0-4 (0-4) /hpf U Hyaline Cast (Auto) 1-5 (0-5) /lpf U Epithel Cells (Auto) 10-20 H (0-5) /lpf Urine Bacteria (Auto) Negative (Negative) SARS-CoV-2 (PCR) (Negative) Monoscreen Negative (Negative) Influenza Type A (PCR) (Neg) Influenza Type B (PCR) (Neg) RSV (RT-PCR) (Neg) 06/29/23 06/29/23 Range/Units 19:48 19:59 WBC (4.8-10.8) K/ul RBC (4.20-5.40) M/uL Hgb (12.0-16.0) g/dl Hct (37.0-47.0) % MCV (80.0-100.0) fL MCH (25.0-34.0) pg MCHC (32.0-36.0) g/dL RDW Std Deviation (36.4-46.3) fL RDW Coeff of Ara (11.5-14.5) % Plt Count (130-400) K/uL MPV (9.4-12.4) fL Immature Gran % (Auto) % Neut % (Auto) % Lymph % (Auto) % Hayes % (Auto) % Eos % (Auto) % Baso % (Auto) % Neut # (Auto) (1.40-6.50) K/uL Lymph # (Auto) (1.20-3.40) K/uL Hayes # (Auto) (0.11-0.59) K/uL Eos # (Auto) (0.00-0.50) K/uL Baso # (Auto) (0.00-0.20) K/uL Immature Gran # (Auto) (0.01-0.20) K/uL Sodium (136-145) mmol/L Potassium (3.5-5.1) mmol/L Chloride (98-107) mmol/L Carbon Dioxide (21-32) mmol/L Anion Gap (3-11) BUN (6-23) mg/dl Creatinine (0.6-1.2) mg/dl Est Cr Clr Drug Dosing Est GFR ( Amer) ml/min Est GFR (Non-Af Amer) ml/min BUN/Creatinine Ratio (10-20) Glucose (70-99(Fasting)) mg/dl Lactate 1.7 (0.4-2.0) mmol/L Calcium (8.6-10.3) mg/dl Magnesium (1.7-2.4) mg/dl Total Bilirubin (0.2-1.0) mg/dl AST (13-39) U/L ALT (7-52) U/L Alkaline Phosphatase (34-104) U/L Troponin I High Sens (0-14) pg/ml Total Protein (6.0-8.3) gm/dl Albumin (3.4-5.0) gm/dl Globulin (2.5-4.0) gm/dl Albumin/Globulin Ratio (0.9-2) Urine Color Urine Appearance (Clear) Urine pH (4.5-7.5) Ur Specific [place] (1.000-1.030) Urine Protein (Negative) Urine Glucose (UA) (Negative) Urine Ketones (Negative) Urine Blood (Negative) Urine Nitrite (Negative) Urine Bilirubin (Negative) Urine Urobilinogen (Negative) Ur Leukocyte Esterase (Negative) Urine WBC (Auto) (0-5) /hpf Urine RBC (Auto) (0-4) /hpf U Hyaline Cast (Auto) (0-5) /lpf U Epithel Cells (Auto) (0-5) /lpf Urine Bacteria (Auto) (Negative) SARS-CoV-2 (PCR) NEGATIVE (Negative) Monoscreen (Negative) Influenza Type A (PCR) Negative (Neg) Influenza Type B (PCR) Negative (Neg) RSV (RT-PCR) Negative (Neg) Imaging Data Radiologist's Impression: Chest CT 06/29/23 19:39 Exam(s): CT CHEST Without Contrast EXAM: CT Chest Without Intravenous Contrast CLINICAL HISTORY: Reason for exam: known lung infection, worsening symptoms. TECHNIQUE: Axial computed tomography images of the chest without intravenous contrast. CTDI is 7.3 mGy and DLP is 245.45 mGy-cm. Automated exposure control was utilized for the study. A dose lowering technique was utilized adhering to the principles of ALARA. COMPARISON: No relevant prior studies available. FINDINGS: Lungs: Mild tree-in-bud nodularity in the RIGHT middle lobe, lingula, and lung bases, correlate for mild infiltrates. Correlate for Mycobacterium avium intracellulare. Pleural space: Unremarkable. No pleural effusion or pneumothorax. Heart: Unremarkable. No cardiomegaly. No significant pericardial effusion. No significant coronary artery calcifications. Bones/joints: Degenerative changes of the spine. No acute fracture. No dislocation. Soft tissues: Unremarkable. Vasculature: Atherosclerotic changes of the aorta. No thoracic aortic aneurysm. Lymph nodes: Unremarkable. No enlarged lymph nodes. IMPRESSION: Mild tree-in-bud nodularity in the RIGHT middle lobe, lingula, and lung bases, correlate for mild infiltrates. Correlate for Mycobacterium avium intracellulare. Electronically signed by: Fidel Thompson MD 06/29/23 20:47 PM Discharge Plan Visit Data Chief Complaint: Weakness Stated Complaint: GENERAL WEAKNESS ED Provider: Mercedes Vergara Discharge Problem: Mycobacterial disease, Weakness Forms Stand Alone Forms: [facility] Prescriptions Prescriptions: No Action Arnuity Ellipta 200 mcg/actuation blister with device 1 inh INHALATION QAM Qty: 30 5RF (DME) Flutter Valve Device See Rx Instructions .ROUTE .MEDSUPPLY Qty: 1 0RF Rx Instructions: As directed (DME) nebulizer accessories Misc See Rx Instructions .Route Qty: 1 0RF Rx Instructions: As directed cholecalciferol (vitamin D3) 1,000 unit capsule 2,000 unit PO QAM levothyroxine [Synthroid] 50 mcg Tablet 50 mcg PO DAILYBB Qty: 0 0RF Centrum Silver Women 8 mg iron-400 mcg-300 mcg Tablet 1 tab PO QAM azithromycin 250 mg tablet 500 mg PO 3XWK Rx Instructions: monday,,monday rifampin 300 mg capsule 600 mg PO 3XWK Rx Instructions: monday,monday,fridays pyridoxine (vitamin B6) [Vitamin B-6] 100 mg Tablet 100 mg PO DAILY Referrals Referrals: Chandan Moss MD [Primary Care Provider] -
[2023-06-29 20:38] LABS: Influenza A virus by PCR Negative (Neg); Influenza B virus by PCR Negative (Neg); RSV by PCR Negative (Neg); SARS CoV2 RNA(COVID-19) Ceph NEGATIVE (Negative)
[2023-06-29 20:44] LABS: Troponin I High Sensitivity 9.7 pg/ml (0-14)
--- NOTE | 2023-06-29 20:48 | CT Scan Report ---
Exam(s): CT CHEST Without Contrast EXAM: CT Chest Without Intravenous Contrast CLINICAL HISTORY: Reason for exam: known lung infection, worsening symptoms. TECHNIQUE: Axial computed tomography images of the chest without intravenous contrast. CTDI is 7.3 mGy and DLP is 245.45 mGy-cm. Automated exposure control was utilized for the study. A dose lowering technique was utilized adhering to the principles of ALARA. COMPARISON: No relevant prior studies available. FINDINGS: Lungs: Mild tree-in-bud nodularity in the RIGHT middle lobe, lingula, and lung bases, correlate for mild infiltrates. Correlate for Mycobacterium avium intracellulare. Pleural space: Unremarkable. No pleural effusion or pneumothorax. Heart: Unremarkable. No cardiomegaly. No significant pericardial effusion. No significant coronary artery calcifications. Bones/joints: Degenerative changes of the spine. No acute fracture. No dislocation. Soft tissues: Unremarkable. Vasculature: Atherosclerotic changes of the aorta. No thoracic aortic aneurysm. Lymph nodes: Unremarkable. No enlarged lymph nodes. IMPRESSION: Mild tree-in-bud nodularity in the RIGHT middle lobe, lingula, and lung bases, correlate for mild infiltrates. Correlate for Mycobacterium avium intracellulare. Electronically signed by: Fidel Thompson MD 06/29/23 20:47 PM
--- NOTE | 2023-06-29 22:51 | History & Physical Report ---
Date of Service June 29, 2023 Assessment & Plan (1) Fatigue: Plan: 77 yo female presenting from home with progressive generalized weakness and fatigue. Patient unable to get out of bed and care for herself or her . Etiology unclear. She is presently afebrile, HD stable. No leukocytosis or anemia. Normal electrolytes with exception of mild hyponatremia with [id number] Covid is NEGATIVE as is RSV and influenza. EBV panel has been sent. Imaging with tree-in-bud nodularity in the right middle lobe, lingula and lung bases. Per my interpretation this appears slightly improved when compared to CT scan from 06/19/23. She does not endorse worsening pulmonary symptoms at this time or fever/sweats. -Admit to medical -Check sputum culture and gram stain -Check procalcitonin -Gentle hydration with LR at 80mL/hr x 1L -PT/OT evaluation (2) COPD, moderate: Plan: Chronic. No report of worsening cough, SOB or wheeze. Cough is dry and non- productive -Continue Arformoterol BID -Guaifenesin 600mg po BID -Continue Fluticasone (3) Mycobacterial disease: Plan: Patient does not endorse worsening pulmonary symptoms. Do not strongly suspect that her current symptoms are secondary to her underlying RADHA. She is being followed by both Pulmonary and ID with ID primarily managing her antibiotics. 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 She reports being on this medication regimen since September - antibiotics are managed by ID - Dr. Burgos. She had RADHA isolated in 2010. She was last seen by Pulmonary on 03/08/23. Patient reports several days of progressive generalized weakness. Today she was unable to get out of bed due to her extreme fatigue and generalized weakness. 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 He has a PEG tube in place. Patient has been so fatigued and weak that she has been unable to administer her 's medications or tube feeds for the last day. She reports a mild, dry cough which is baseline and stable. Denies worsening shortness of breath, chest pain, abdominal pain, nausea, vomiting, diarrhea. She has had some chills but no fever. In the ER she is afebrile, HD stable, adequate oxygenation on room air. Allergies Allergy/AdvReac Type Severity Reaction Status Date / Time Cephalosporins Allergy Severe Unknown Verified 06/29/23 22:52 lidocaine Allergy Severe Rash Verified 06/29/23 22:52 tree and shrub pollen Allergy Severe Unknown Verified 06/29/23 22:52 cefaclor Allergy Unknown . Verified 06/29/23 22:52 iodine Allergy Unknown HIVES Verified 06/29/23 22:52 Penicillins Allergy Unknown RASH, RXN Verified 06/29/23 22:52 TO AMOXICILLIN strawberry Allergy Hives Verified 06/29/23 22:52 Whitehead Allergy Unknown UNKNOWN. Uncoded 06/29/23 22:52 Home Medications Medication Instructions Recorded Confirmed Type cholecalciferol (vitamin D3) 25 2,000 unit PO QAM 04/10/19 06/29/23 History mcg (1,000 unit) capsule nebulizer accessories #1 ea 03/11/22 06/29/23 Rx Flutter Valve #1 ea 07/25/22 06/29/23 Rx levothyroxine 50 mcg tablet 50 mcg PO DAILYBB #0 tabs 08/19/22 06/29/23 Rx (Synthroid) [id number] 8 mg-folic 400 1 tab PO QAM 09/15/22 06/29/23 History mcg-K 50 mcg-lutein 300 mcg tablet (Centrum Silver Women) fluticasone furoate 200 1 inh inhalation QAM #30 ea 01/25/23 06/29/23 Rx mcg/actuation blister powder for inhalation (Arnuity Ellipta) azithromycin 250 mg tablet 500 mg PO 3XWK 06/29/23 06/29/23 History pyridoxine (vitamin B6) 100 mg 100 mg PO DAILY 06/29/23 06/29/23 History tablet (Vitamin B-6) rifampin 300 mg capsule 600 mg PO 3XWK 06/29/23 06/29/23 History Past Med/Surg History Medical History Hypoxic Bronchiectasis with (acute) exacerbation Recurrent pneumonia Postherpetic neuralgia Hypothyroidism Asthmatic bronchitis Cough productive of purulent sputum Chronic shortness of breath Bronchiectasis Cough COPD, moderate Postherpetic neuralgia Pneumonia Atypical mycobacterial infection Abdominal pain Surgical History History of tonsillectomy History of total abdominal hysterectomy and bilateral salpingo-oophorectomy History of partial mastectomy of left breast History of bronchoscopy Family History Sister Cervical cancer Mother Diabetes Other Colon cancer Crohn's disease Heart disease Social History Smoking Status: Never smoker Tobacco Type: Cigarettes Hx Alcohol Use: No Hx Substance Use: No Preferred Language: Pashto Communication Ability: Effective Obstetrical Anesthesiologist Required: No Beliefs That Will Affect Care: Alevism Current Living Situation: Spouse Feels Safe at Home: Yes Assistive Devices: Cane Review of Systems Review of Systems: All systems reviewed & are unremarkable except as noted in HPI & below Physical Exam Physical Exam: General: patient resting comfortably, NAD, non-toxic in appearance, AA&O x 4 Skin: warm, dry, intact, no rashes or lesions HEENT: NC/AT, PERRL, EOMI, anicteric sclera, conjunctiva without injection, external ear normal to inspection and nontender, nares patent, moist mucus membranes, dentition intact, no oropharyngeal lesions, neck supple, trachea midline, no LAD, no thyromegaly, no JVD Heart: +S1/S2, regular, no m/r/g Lungs: equal air entry bilaterally, faint end-expiratory wheezing in bilateral lung magdaleno Abd: +BS, soft, NT/ND, no masses/organomegaly/ascites Ext: warm, 2+ pulses in UE/LE bilaterally, no clubbing/cyanosis or edema Neuro: nonfocal, patient AA&O x 4, speech intact, no facial droop, moving all extremities on command with equal strength 5/5 Results & Data Results & Data Vital Signs (Past 12 Hours) Vital Signs Temp Pulse Pulse Resp BP BP Pulse Ox 06/29/23 19:45 97 06/29/23 19:45 06/29/23 19:24 73 15 184/65 H 96 06/29/23 19:20 90 06/29/23 17:32 36.8 C 75 18 160/66 H 96 O2 Del Method 06/29/23 19:45 Room Air 06/29/23 19:45 Room Air 06/29/23 19:24 06/29/23 19:20 06/29/23 17:32 Room Air Laboratory Results Laboratory Results WBC 10.14 K/ul (4.8-10.8) 06/29/23 17:43 RBC 5.02 M/uL (4.20-5.40) 06/29/23 17:43 Hgb 14.5 g/dl (12.0-16.0) 06/29/23 17:43 Hct 43.8 % (37.0-47.0) 06/29/23 17:43 MCV 87.3 fL (80.0-100.0) 06/29/23 17:43 MCH 28.9 pg (25.0-34.0) 06/29/23 17:43 MCHC 33.1 g/dL (32.0-36.0) 06/29/23 17:43 RDW Std Deviation 40.2 fL (36.4-46.3) 06/29/23 17:43 RDW Coeff of Ara 12.7 % (11.5-14.5) 06/29/23 17:43 Plt Count 310 K/uL (130-400) 06/29/23 17:43 MPV 10.0 fL (9.4-12.4) 06/29/23 17:43 Immature Gran % (Auto) 0.2 % 06/29/23 17:43 Neut % (Auto) 76.6 % 06/29/23 17:43 Lymph % (Auto) 15.6 % 06/29/23 17:43 Robeson % (Auto) 6.2 % 06/29/23 17:43 Eos % (Auto) 0.7 % 06/29/23 17:43 Baso % (Auto) 0.7 % 06/29/23 17:43 Neut # (Auto) 7.77 K/uL (1.40-6.50) H 06/29/23 17:43 Lymph # (Auto) 1.58 K/uL (1.20-3.40) 06/29/23 17:43 Robeson # (Auto) 0.63 K/uL (0.11-0.59) H 06/29/23 17:43 Eos # (Auto) 0.07 K/uL (0.00-0.50) 06/29/23 17:43 Baso # (Auto) 0.07 K/uL (0.00-0.20) 06/29/23 17:43 Immature Gran # (Auto) 0.02 K/uL (0.01-0.20) 06/29/23 17:43 Sodium 135 mmol/L (136-145) L 06/29/23 17:43 Potassium 3.8 mmol/L (3.5-5.1) 06/29/23 17:43 Chloride 101 mmol/L (98-107) 06/29/23 17:43 Carbon Dioxide 28 mmol/L (21-32) 06/29/23 17:43 Anion Gap 6 (3-11) 06/29/23 17:43 BUN 25 mg/dl (6-23) H 06/29/23 17:43 Creatinine 0.60 mg/dl (0.6-1.2) 06/29/23 17:43 Est Cr Clr Drug Dosing Not Reportable 06/29/23 17:43 Est GFR ( Amer) 101.2 ml/min 06/29/23 17:43 Est GFR (Non-Af Amer) 87.3 ml/min 06/29/23 17:43 BUN/Creatinine Ratio 41.7 (10-20) H 06/29/23 17:43 Glucose 89 mg/dl (70-99(Fasting)) 06/29/23 17:43 Lactate 1.7 mmol/L (0.4-2.0) 06/29/23 19:59 Calcium 9.5 mg/dl (8.6-10.3) 06/29/23 17:43 Magnesium 2.2 mg/dl (1.7-2.4) 06/29/23 17:43 Total Bilirubin 0.4 mg/dl (0.2-1.0) 06/29/23 17:43 AST 23 U/L (13-39) 06/29/23 17:43 ALT 22 U/L (7-52) 06/29/23 17:43 Alkaline Phosphatase 109 U/L (34-104) H 06/29/23 17:43 Troponin I High Sens 9.7 pg/ml (0-14) 06/29/23 17:43 Total Protein 7.9 gm/dl (6.0-8.3) 06/29/23 17:43 Albumin 4.2 gm/dl (3.4-5.0) 06/29/23 17:43 Globulin 3.7 gm/dl (2.5-4.0) 06/29/23 17:43 Albumin/Globulin Ratio 1.1 (0.9-2) 06/29/23 17:43 Urine Color Yellow 06/29/23 19:19 Urine Appearance Clear (Clear) 06/29/23 19:19 Urine pH 5.0 (4.5-7.5) 06/29/23 19:19 Ur Specific Regan 1.014 (1.000-1.030) 06/29/23 19:19 Urine Protein Negative (Negative) 06/29/23 19:19 Urine Glucose (UA) Negative (Negative) 06/29/23 19:19 Urine Ketones Trace (Negative) H 06/29/23 19:19 Urine Blood 1+ (Negative) H 06/29/23 19:19 Urine Nitrite Negative (Negative) 06/29/23 19:19 Urine Bilirubin Negative (Negative) 06/29/23 19:19 Urine Urobilinogen Negative (Negative) 06/29/23 19:19 Ur Leukocyte Esterase Negative (Negative) 06/29/23 19:19 Urine WBC (Auto) 1-5 /hpf (0-5) 06/29/23 19:19 Urine RBC (Auto) 0-4 /hpf (0-4) 06/29/23 19:19 U Hyaline Cast (Auto) 1-5 /lpf (0-5) 06/29/23 19:19 U Epithel Cells (Auto) 10-20 /lpf (0-5) H 06/29/23 19:19 Urine Bacteria (Auto) Negative (Negative) 06/29/23 19:19 SARS-CoV-2 (PCR) NEGATIVE (Negative) 06/29/23 19:48 Monoscreen Negative (Negative) 06/29/23 17:45 Influenza Type A (PCR) Negative (Neg) 06/29/23 19:48 Influenza Type B (PCR) Negative (Neg) 06/29/23 19:48 RSV (RT-PCR) Negative (Neg) 06/29/23 19:[address] 06/29/23 19:39 Exam(s): CT CHEST Without Contrast EXAM: CT Chest Without Intravenous Contrast CLINICAL HISTORY: Reason for exam: known lung infection, worsening symptoms. TECHNIQUE: Axial computed tomography images of the chest without intravenous contrast. CTDI is 7.3 mGy and DLP is 245.45 mGy-cm. Automated exposure control was utilized for the study. A dose lowering technique was utilized adhering to the principles of ALARA. COMPARISON: No relevant prior studies available. FINDINGS: Lungs: Mild tree-in-bud nodularity in the RIGHT middle lobe, lingula, and lung bases, correlate for mild infiltrates. Correlate for Mycobacterium avium intracellulare. Pleural space: Unremarkable. No pleural effusion or pneumothorax. Heart: Unremarkable. No cardiomegaly. No significant pericardial effusion. No significant coronary artery calcifications. Bones/joints: Degenerative changes of the spine. No acute fracture. No dislocation. Soft tissues: Unremarkable. Vasculature: Atherosclerotic changes of the aorta. No thoracic aortic aneurysm. Lymph nodes: Unremarkable. No enlarged lymph nodes. IMPRESSION: Mild tree-in-bud nodularity in the RIGHT middle lobe, lingula, and lung bases, correlate for mild infiltrates. Correlate for Mycobacterium avium intracellulare. Electronically signed by: Fidel Thompson MD 06/29/23 20:47 PM PG Care Time/CCT Total # of Minutes Spent Total Time Spent with Patient: Total time spent is greater than 50% in coordination of care (as documented) at patient's floor/unit and/or counseling patient: Coding Level of Care Code 65756 INT INP/OBS CARE 2/55MIN Diagnoses Fatigue R53.83 COPD, moderate J44.9 Mycobacterial disease A31.9
[2023-06-30] MEDS ORDERED: LACTATED RINGER'S 1,000 ML IV SCH (02:44)
[2023-06-30] MEDS ORDERED: Nursing to Pharmacy Communication SCH (02:45)
[2023-06-30] MEDS: LEVOTHYROXINE SODIUM 50 MCG TABLET PO SCH (05:39)
[2023-06-30] MEDS: FORMOTEROL 20 MCG/2 ML VIAL INH SCH ×2 (06:58→20:16)
--- NOTE | 2023-06-30 07:20 | Hospitalist Progress Note ---
Date of Service June 30, 2023 Assessment & Plan (1) Fatigue: (2) COPD, moderate: (3) Mycobacterial disease: (4) Weight loss: (5) Hypothyroidism: Plan 77 yo female presenting from home with progressive generalized weakness and fatigue. Patient unable to get out of bed and care for herself or her . She is presently afebrile, HD stable. No leukocytosis or anemia. Normal electrolytes with exception of mild hyponatremia with [id number]=620 #Fatigue -COVID, RSV, influenza negative. -EBV panel is pending -CT chest showed tree-in-bud nodularity in the right middle lobe, lingula and lung bases. This is most consistent with patient's known mycobacterial disease. A CT chest was done approximately 10 days ago, CT chest during admission was not compared to previous CT. If patient worsens clinically may consider overread from radiologist. The patient is not having any pulmonary symptoms at this time. -Check sputum culture and gram stain -Gentle hydration with LR at 80mL/hr x 1L -PT/OT evaluation -Labs ordered on 06/30 were declined by patient as she does not feel that she needs them #Weight loss -Patient with about a 10 kg weight loss since February. -TSH was recently checked, stable on levothyroxine. -May be related to having to take care of at all times and feeling tired and stressed. She does state that going to the grocery store has become a great task for her. -Failure to thrive most likely, patient most likely needs home health for . -Unable to fully work-up as patient has declined needing labs. #COPD -Chronic. No report of worsening cough, SOB or wheeze. Cough is dry and non- productive -Continue Arformoterol BID -Guaifenesin 600mg po BID -Continue Fluticasone #Mycobacterial disease -Patient does not endorse worsening pulmonary symptoms. Do not strongly suspect that her current symptoms are secondary to her underlying RADHA. -She is being followed by both Pulmonary and ID with ID primarily managing her antibiotics. -She has been on Azithromycin and Rifampin 3x weekly since September -Continue Azithromycin and Rifampin -Continue Pyridoxine -ID and Pulmonary consultations if her symptoms worsen #Hypothyroidism -Continue levothyroxine 50 mcg. Admission and Anticipated Discharge Date Admission Date: June 30, 2023 Supervising Physician Co-Signing Physician Notes ATTESTATION I also saw the patient and confirmed yepez portions of the history and exam. I agree with the impression and plan in the resident documentation, and as summarized below. Upon our midmorning exam, the patient complains of continued fatigue. She is able to ambulate from the bathroom back to her bed, although utilizes the IV pole for assistance. She describes a general decline and increased weakness, which sounds more subacute rather than acute. She talks about having to take care of her and when she is completed finishing/helping him with his ADLs, she is completely exhausted. She has had a greater than 20 pound weight loss over the past year, most of this being in the last 3-4 months when review of outpatient records. She does have some chronic lung disease for which she follows with pulmonary medicine, although her respiratory symptoms seem to be at her baseline per her report. EXAM 159/69, 76, 16, 37 C, 93% on room air Alert and oriented. No acute distress appreciated. Appears somewhat frail Heart regular rate and rhythm Lungs clear in the apices, decreased in the bases bilaterally. No focal findings otherwise Extremities without edema DATA Labs WBC 10.14, hemoglobin 14.5, platelet count 310 Sodium 135, potassium 3.8, BUN 25, creatinine 0.[address] scan completed 06/29/2023 shows mild tree-in-bud nodularity in the right middle lobe. This was also present on CT scan dated 06/19/2023 IMPRESSION & PLAN I agree the impression and plan as noted in the resident documentation above. Progressive, subacute fatigue and weight loss in the setting of COPD, and pulmonary mycobacterial disease on chronic suppression. She does have noted history of hypothyroidism but recent outpatient TSH well within normal. PT/OT Gentle fluids Additional per resident documentation Subjective Patient was seen bedside this morning. She states that she feels very weak and tired this morning. States that majority of her issues done for having to help out in her 's care. She also states that things are going to the supermarket have been very hard for her. She states that she is eating appropriately at home but not sleeping. Review of Systems Review of Systems: All systems reviewed & are unremarkable except as noted in Subjective Physical Exam Physical Exam: Constitutional: well-appearing, no acute distress HEENT: NCAT, no conjunctival injection CV: regular rhythm, no murmur appreciated, extremities well-perfused, no LE edema Resp: CTABL, no wheezes/rales/rhonchi appreciated, no increased work of breathing GI: soft, nondistended, nontender, BS normoactive MSK: no gross deformities appreciated Skin: warm, dry, no rash appreciated Neuro: alert, oriented, no focal neurologic deficit appreciated Results & Data Results & Data Vital Signs (Past 12 Hours) Vital Signs Temp Pulse Pulse Pulse Resp BP BP 06/30/23 07:18 36.7 C 78 16 128/74 06/30/23 06:59 81 16 06/30/23 02:44 06/30/23 02:44 37.1 C 77 20 162/72 H 06/30/23 02:44 37.1 C 77 20 162/72 H 06/30/23 02:24 06/30/23 02:00 66 21 06/30/23 01:00 71 16 158/82 H 06/30/23 00:13 67 19 166/84 H 06/30/23 00:00 78 26 H 167/74 H 06/29/23 23:00 80 18 167/74 H 06/29/23 22:59 67 16 167/74 H 06/29/23 19:45 06/29/23 19:45 06/29/23 19:24 73 15 184/65 H Pulse Ox O2 Del Method 06/30/23 07:18 95 Room Air 06/30/23 06:59 93 Room Air 06/30/23 02:44 Room Air 06/30/23 02:44 95 Room Air 06/30/23 02:44 95 Room Air 06/30/23 02:24 Room Air 06/30/23 02:00 91 06/30/23 01:00 93 06/30/23 00:13 95 06/30/23 00:00 95 06/29/23 23:00 98 Room Air 06/29/23 22:59 96 06/29/23 19:45 97 Room Air 06/29/23 19:45 Room Air 06/29/23 19:24 96 Resident Activity Tracking Resident Involvement: Resident Care Provided Care Provided: Adult Hospital Medicine
[2023-06-30] MEDS: guaiFENesin 600 MG TABCR PO SCH ×2 (08:26→20:07)
[2023-06-30] MEDS: PYRIDOXINE HCL 50 MG TAB PO SCH (08:26)
[2023-06-30] MEDS: FLUTICASONE FUROATE 200MCG 14 PUFFS/INHALER INH SCH (08:27)
[2023-06-30] MEDS: rifAMPin 300 MG CAPSULE PO SCH (11:21)
[2023-06-30] MEDS: ACETAMINOPHEN 325 MG TAB PO PRN ×2 (18:02→22:01)
[2023-06-30 19:28] LABS: Hematocrit (blood only) 43.7 % (37.0-47.0); Hemoglobin 14.3 g/dl (12.0-16.0); Mean Corpuscular Hemoglobin 28.7 pg (25.0-34.0); Mean Corpuscular Hgb Conc 32.7 g/dL (32.0-36.0); Mean Corpuscular Volume 87.6 fL (80.0-100.0); Mean Platelet Volume 10.1 fL (9.4-12.4); Platelet Count 284 K/uL (130-400); RDW Coefficient of Variation 12.6 % (11.5-14.5); RDW Standard Deviation 40.1 fL (36.4-46.3); Red Blood Count 4.99 M/uL (4.20-5.40); White Blood Count 9.11 K/ul (4.8-10.8)
[2023-06-30 19:44] LABS: Alanine Aminotransferase 20 U/L (7-52); Albumin Level 3.8 gm/dl (3.4-5.0); Alkaline Phosphatase 102 U/L (34-104); Anion Gap 5 (3-11); Aspartate Aminotransferase 23 U/L (13-39); BUN Creatinine Ratio 31.2 (10-20); Bilirubin Direct 0.1 mg/dl (0-0.2); Bilirubin,Total 0.7 mg/dl (0.2-1.0); Blood Urea Nitrogen 24 mg/dl (6-23); Calcium 9.2 mg/dl (8.6-10.3); Carbon Dioxide 26 mmol/L (21-32); Chloride 103 mmol/L (98-107); Est GFR (African American) 85.7 ml/min; Glucose 115 mg/dl (70-99(Fasting)); Potassium 4.3 mmol/L (3.5-5.1); Sodium 134 mmol/L (136-145); Total Protein 7.5 gm/dl (6.0-8.3)
[2023-07-01] MEDS: LEVOTHYROXINE SODIUM 50 MCG TABLET PO SCH (06:33)
--- NOTE | 2023-07-01 07:08 | Hospitalist Progress Note ---
Date of Service July 01, 2023 Assessment & Plan (1) Fatigue: (2) COPD, moderate: (3) Mycobacterial disease: (4) Weight loss: (5) Hypothyroidism: Plan Pt is a 77 yo female presenting from home with progressive generalized weakness and fatigue. Patient unable to get out of bed and care for herself or her . Fatigue -COVID, RSV, influenza, monospot; EBV panel pending -CT chest showed tree-in-bud nodularity in the right middle lobe, lingula and lung bases. This is most consistent with patient's known mycobacterial disease. A CT chest was done approximately 10 days ago, CT chest during admission was not compared to previous CT. If patient worsens clinically may consider overread from radiologist. The patient is not having any respiratory symptoms at this time. -Check sputum culture and gram stain (uncollected) -PT/OT evaluation -CBC, CMP, iron studies WNL -suspect caregiver duties and possible component of depression significantly contributing to fatigue; will require outpatient f/u Weight loss -down ~10 kg since February -TSH recently checked and WNL; pt with hx of breast cancer- most recent mammo 12/2022 neg; last colonoscopy 2014 neg; mother with hx of ovarian cancer -May be related to having to take care of at all times and feeling tired and stressed. She does state that going to the grocery store has become a great task for her. -Failure to thrive most likely; patient will need at least home health to aid with the care of her upon discharge (if not a higher level of care for him/her (half-way care/rehab respectively) -Pt will need close outpatient f/u COPD -Chronic. No report of worsening cough, SOB or wheeze. Cough is dry and non- productive -Continue home arnuity and guaifenesin Mycobacterial disease -Patient does not endorse worsening pulmonary symptoms. Do not suspect that her current symptoms are secondary to her underlying RADHA -She is being followed by both Pulmonary (Dr. Calvert) and ID (Dr. Burgos) with ID primarily managing her antibiotics -She has been on Azithromycin and Rifampin 3x weekly since September; continue while hospitalized -Continue Pyridoxine daily Hypothyroidism -Continue levothyroxine 50 mcg Diet: regular Code: DNR/DNI DVT ppx: ambulation Dispo: discussed with pt options for discharge (home, home with home health, acute rehab, and rat exterminator facility); will have CM discuss options and specifics concerning cost, availability, etc with her Admission and Anticipated Discharge Date Admission Date: June 29, 2023 Supervising Physician Co-Signing Physician Notes ATTESTATION I also saw the patient and confirmed yepez portions of the history and exam. I agree with the impression and plan in the resident documentation, and as summarized below. Patient continues to complain of "exhaustion." It is hard to delineate exactly when this began, although again it sounds to be a subacute/chronic progression over the last several months. She notes decreased appetite and weight loss, and this had been previously discussed with her outpatient primary care doctor. EXAM 179/69, 61, 16, 36.8, 92% room air Alert and oriented. No acute distress appreciated. Heart regular rate and rhythm Lungs clear in the apices, decreased in the bases bilaterally. No focal findings otherwise Extremities without edema DATA Labs WBC 7.16, hemoglobin 15, platelet count 273 Sodium 138, potassium 3.9, BUN 16, creatinine 0.62 Iron 66, TIBC 335, ferritin 37.8 LFTs unremarkable TSH dated 06/02/2023 was 0.797. IMPRESSION & PLAN I agree the impression and plan as noted in the resident documentation above. Progressive, subacute fatigue and weight loss in the setting of COPD, and pul monary mycobacterial disease on chronic suppression. She does have noted history of hypothyroidism but recent outpatient TSH well within normal. Appreciate PT/OT consultations Discontinue fluids Case management note appreciated Additional per resident documentation Subjective Pt is a 77 yo female presenting from home with progressive generalized weakness and fatigue. Patient unable to get out of bed and care for herself or her . Pt feels slightly stronger today, but not much. She is trying to rest but states the sun is too bright coming in through her window. She was hoping she would have felt up to going home and fulfilling her caregiver duties today but she does not feel that she is strong enough. Review of Systems Review of Systems: As per HPI Physical Exam Physical Exam: Constitutional: well appearing, no acute distress HEENT: normocephalic, no conjunctival injection CV: clinically well perfused Respiratory: no increased work of breathing MSK: no gross deformities noted Skin: warm, dry, no rashes Neuro: alert, oriented, no FND noted Results & Data Results & Data Vital Signs (Past 12 Hours) Vital Signs Temp Pulse Resp BP Pulse Ox O2 Del Method 06/30/23 20:27 18 94 Room Air 06/30/23 20:06 36.7 C 76 16 149/67 H 93 Room Air Resident Activity Tracking Resident Involvement: Resident Care Provided Care Provided: Adult Hospital Medicine
[2023-07-01] MEDS: FORMOTEROL 20 MCG/2 ML VIAL INH SCH (07:38)
[2023-07-01 07:43] LABS: Hematocrit (blood only) 44.7 % (37.0-47.0); Mean Corpuscular Hgb Conc 33.6 g/dL (32.0-36.0); Mean Corpuscular Volume 86.3 fL (80.0-100.0); Mean Platelet Volume 10.1 fL (9.4-12.4); Platelet Count 273 K/uL (130-400); RDW Coefficient of Variation 12.6 % (11.5-14.5); RDW Standard Deviation 39.8 fL (36.4-46.3); Red Blood Count 5.18 M/uL (4.20-5.40); White Blood Count 7.16 K/ul (4.8-10.8)
[2023-07-01 08:24] LABS: Alanine Aminotransferase 18 U/L (7-52); Albumin Globulin Ratio 1.1 (0.9-2); Albumin Level 3.9 gm/dl (3.4-5.0); Alkaline Phosphatase 98 U/L (34-104); Anion Gap 7 (3-11); Aspartate Aminotransferase 22 U/L (13-39); BUN Creatinine Ratio 25.8 (10-20); Bilirubin,Total 0.4 mg/dl (0.2-1.0); Blood Urea Nitrogen 16 mg/dl (6-23); Calcium 9.3 mg/dl (8.6-10.3); Carbon Dioxide 26 mmol/L (21-32); Chloride 105 mmol/L (98-107); Est GFR (African American) 100.1 ml/min; Est GFR (Non-African American) 86.4 ml/min; Globulin 3.4 gm/dl (2.5-4.0); Glucose 98 mg/dl (70-99(Fasting)); Iron 66 mcg/dl (35-150); Potassium 3.9 mmol/L (3.5-5.1); Sodium 138 mmol/L (136-145); Total Iron Binding Cap Calc 335 mcg/dl (250-450); Total Protein 7.3 gm/dl (6.0-8.3); Transferrin (FE) Percent Satur 20 % (15-50); Unsaturated Iron Binding Cap 269 mcg/dl (155-355)
[2023-07-01 08:43] LABS: Ferritin 37.8 ng/ml (8-388)
[2023-07-01] MEDS ORDERED: AZITHROMYCIN 250 MG TAB PO SCH (09:00)
[2023-07-01] MEDS: guaiFENesin 600 MG TABCR PO SCH ×2 (09:32→21:11)
[2023-07-01] MEDS: PYRIDOXINE HCL 50 MG TAB PO SCH (09:33)
[2023-07-01] MEDS: FLUTICASONE FUROATE 200MCG 14 PUFFS/INHALER INH SCH (09:34)
[2023-07-01] MEDS: ACETAMINOPHEN 325 MG TAB PO PRN (18:48)
[2023-07-02] MEDS: LEVOTHYROXINE SODIUM 50 MCG TABLET PO SCH (06:32)
--- NOTE | 2023-07-02 07:13 | Hospitalist Progress Note ---
Date of Service July 02, 2023 Assessment & Plan (1) Fatigue: (2) COPD, moderate: (3) Mycobacterial disease: (4) Weight loss: (5) Hypothyroidism: Plan Pt is a 77 yo female presenting from home with progressive generalized weakness and fatigue. Patient unable to get out of bed and care for herself or her . Fatigue -COVID, RSV, influenza, monospot; EBV panel pending -CT chest showed tree-in-bud nodularity in the right middle lobe, lingula and lung bases. This is most consistent with patient's known mycobacterial disease. A CT chest was done approximately 10 days ago, CT chest during admission was not compared to previous CT. If patient worsens clinically may consider overread from radiologist. The patient is not having any respiratory symptoms at this time. -Check sputum culture and gram stain (uncollected) -PT/OT evaluation -CBC, CMP, iron studies WNL -suspect caregiver duties and possible component of depression significantly contributing to fatigue; will require outpatient f/u Weight loss -down ~10 kg since February -TSH recently checked and WNL; pt with hx of breast cancer- most recent mammo 12/2022 neg; last colonoscopy 2014 neg; mother with hx of ovarian cancer -May be related to having to take care of at all times and feeling tired and stressed. She does state that going to the grocery store has become a great task for her. -Failure to thrive most likely; patient would benefit from at least home health to aid with the care of her upon discharge (if not a higher level of care for him/her (jail care/rehab respectively) -Pt will need close outpatient f/u COPD -Chronic. No report of worsening cough, SOB or wheeze. Cough is dry and non- productive -Continue home arnuity and guaifenesin Mycobacterial disease -Patient does not endorse worsening pulmonary symptoms. Do not suspect that her current symptoms are secondary to her underlying RADHA -She is being followed by both Pulmonary (Dr. Calvert) and ID (Dr. Burgos) with ID primarily managing her antibiotics -She has been on Azithromycin and Rifampin 3x weekly since September; continue while hospitalized -Continue Pyridoxine daily Hypothyroidism -Continue levothyroxine 50 mcg Diet: regular Code: DNR/DNI DVT ppx: ambulation Dispo: pt and pt's would benefit from home health services/intermediate frame tender care; per CM note, pt has no interest in this at this time- will require further discussions concerning discharge and discharge planning Admission and Anticipated Discharge Date Admission Date: June 29, 2023 Supervising Physician Co-Signing Physician Notes ATTESTATION I also saw the patient and confirmed yepez portions of the history and exam. I agree with the impression and plan in the resident documentation, and as summarized below. She is feeling little bit stronger today. She seems little bit more energetic during our conversation. She has spoken with case management and is not interested in placement or home services. We discussed this little bit more in depth and perhaps she would be open to the idea of some outside help, although it sounds as if she had some outside help previously that she did not find particularly helpful. EXAM 154/66, 84, 18, 36.6, 96% room air Alert and oriented. No acute distress appreciated. Respirations nonlabored IMPRESSION & PLAN I agree the impression and plan as noted in the resident documentation above. Progressive, subacute fatigue and weight loss in the setting of COPD, and pulmonary mycobacterial disease on chronic suppression. She does have noted history of hypothyroidism but recent outpatient TSH well within normal. She tells us she is feeling somewhat better/less exhausted/stronger today compared to admission. Subjectively, she does seem to be a little bit more energetic. She thinks that she would be ready for discharge tomorrowshe is not her baseline, but pretty close in her estimation. She will think a bit more about the addition of home services to help supplement her care of her Appreciate PT/OT consultations Case management note appreciated Additional per resident documentation Subjective Pt is a 77 yo female presenting from home with progressive generalized weakness and fatigue. Patient unable to get out of bed and care for herself or her . Pt upset this morning because her was eating oatmeal and wasn't out of bed sitting in a chair. She is concerned for aspiration. Otherwise, she feels as if she has slightly more energy than when she came in. No new complaints of SOB, chest pain, or leg pains. Review of Systems Review of Systems: As per HPI Physical Exam Physical Exam: Constitutional: well appearing, no acute distress HEENT: normocephalic, no conjunctival injection CV: regular rhythm, regular rate, no murmur, no LE edema Respiratory: Clear to auscultation bilaterally. No rhonchi, wheezes, or crackles. No increased work of breathing MSK: no gross deformities noted Skin: warm, dry, no rashes Neuro: alert, oriented, no FND noted Results & Data Results & Data Vital Signs (Past 12 Hours) Vital Signs Temp Pulse Resp BP Pulse Ox O2 Del Method 07/01/23 21:08 36.9 C 74 16 158/53 H 94 Room Air Resident Activity Tracking Resident Involvement: Resident Care Provided Care Provided: Adult Hospital Medicine
[2023-07-02] MEDS: PYRIDOXINE HCL 50 MG TAB PO SCH (08:31)
[2023-07-02] MEDS: guaiFENesin 600 MG TABCR PO SCH ×2 (08:31→20:06)
[2023-07-02] MEDS: FLUTICASONE FUROATE 200MCG 14 PUFFS/INHALER INH SCH (08:32)
--- NOTE | 2023-07-02 17:36 | Electrocardiogram Report ---
Test Reason : Blood Pressure : / mmHG Vent. Rate : 075 BPM Atrial Rate : 075 BPM P-R Int : 146 ms QRS Dur : 070 ms QT Int : 394 ms P-R-T Axes : 073 047 065 degrees QTc Int : 439 ms Sinus rhythm with Premature atrial complexes Otherwise normal ECG When compared with ECG of 15-SEP-2022 17:12, Premature atrial complexes are now Present No significant change Confirmed by Teddy Sosa ([id number]) on 07/02/2023 5:35:52 PM Referred By: REFERRED SELF Confirmed By:Teddy Sosa
[2023-07-02] MEDS: ACETAMINOPHEN 325 MG TAB PO PRN (20:06)
[2023-07-03] MEDS: LEVOTHYROXINE SODIUM 50 MCG TABLET PO SCH (05:52)
[2023-07-03] MEDS: guaiFENesin 600 MG TABCR PO SCH (08:13)
[2023-07-03] MEDS: rifAMPin 300 MG CAPSULE PO SCH (08:13)
[2023-07-03] MEDS: PYRIDOXINE HCL 50 MG TAB PO SCH (08:13)
[2023-07-03] MEDS: FLUTICASONE FUROATE 200MCG 14 PUFFS/INHALER INH SCH (08:13)
--- NOTE | 2023-07-03 08:14 | Discharge Summary ---
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 She reports being on this medication regimen since September - antibiotics are managed by [facility] - Dr. Burgos. She had RADHA isolated in 2010. She was last seen by Pulmonary on 03/08/23. Patient reports several days of progressive generalized weakness. Today she was unable to get out of bed due to her extreme fatigue and generalized weakness. 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 He has a PEG tube in place. Patient has been so fatigued and weak that she has been unable to administer her 's medications or tube feeds for the last day. She reports a mild, dry cough which is baseline and stable. Denies worsening shortness of breath, chest pain, abdominal pain, nausea, vomiting, diarrhea. She has had some chills but no fever. In the ER she is afebrile, HD stable, adequate oxygenation on room air. Admission Exam Per Admitting Provider General: patient resting comfortably, NAD, non-toxic in appearance, AA&O x 4 Skin: warm, dry, intact, no rashes or lesions HEENT: NC/AT, PERRL, EOMI, anicteric sclera, conjunctiva without injection, external ear normal to inspection and nontender, nares patent, moist mucus membranes, dentition intact, no oropharyngeal lesions, neck supple, trachea midline, no LAD, no thyromegaly, no JVD Heart: +S1/S2, regular, no m/r/g Lungs: equal air entry bilaterally, faint end-expiratory wheezing in bilateral lung magdaleno Abd: +BS, soft, NT/ND, no masses/organomegaly/ascites Ext: warm, 2+ pulses in UE/LE bilaterally, no clubbing/cyanosis or edema Neuro: nonfocal, patient AA&O x 4, speech intact, no facial droop, moving all extremities on command with equal strength 5/5 Principal Diagnosis failure to thrive Discharge Exam Constitutional: well appearing, no acute distress HEENT: normocephalic, no conjunctival injection CV: clinically well perfused Respiratory: No increased work of breathing Abd: non-distended Psych: appropriate mood and affect MSK: no gross deformities noted Skin: warm, dry, no rashes Neuro: alert, oriented, no FND noted Discharge Data Allergies Allergy/AdvReac Type Severity Reaction Status Date / Time Cephalosporins Allergy Severe Unknown Verified 06/29/23 22:52 lidocaine Allergy Severe Rash Verified 06/29/23 22:52 tree and shrub pollen Allergy Severe Unknown Verified 06/29/23 22:52 cefaclor Allergy Unknown . Verified 06/29/23 22:52 iodine Allergy Unknown HIVES Verified 06/29/23 22:52 Penicillins Allergy Unknown RASH, RXN Verified 06/29/23 22:52 TO AMOXICILLIN ascorbic acid Allergy Unknown Verified 06/30/23 03:04 [From Sambucus Elderberry Immune] blackberry Allergy Unknown Verified 06/30/23 03:04 blueberry Allergy Unknown Verified 06/30/23 03:04 cranberry Allergy Unknown Verified 06/30/23 03:04 Echinacea angustifolia root, Allergy Unknown Verified 06/30/23 03:04 rhizome extract [From Sambucus Elderberry Immune] Echinacea purpurea extract Allergy Unknown Verified 06/30/23 03:04 [From Sambucus Elderberry Immune] elderberry fruit Allergy Unknown Verified 06/30/23 03:04 [From Sambucus Elderberry Immune] propolis (bee glue) Allergy Unknown Verified 06/30/23 03:04 [From Sambucus Elderberry Immune] raspberry Allergy Unknown Verified 06/30/23 03:04 strawberry Allergy Hives Verified 06/29/23 22:52 zinc Allergy Unknown Verified 06/30/23 03:04 [From Sambucus Elderberry Immune] Ordered Studies Chest CT 06/29/23 19:39 FINDINGS: Lungs: Mild tree-in-bud nodularity in the RIGHT middle lobe, lingula, and lung bases, correlate for mild infiltrates. Correlate for Mycobacterium avium intracellulare. Pleural space: Unremarkable. No pleural effusion or pneumothorax. Heart: Unremarkable. No cardiomegaly. No significant pericardial effusion. No significant coronary artery calcifications. Bones/joints: Degenerative changes of the spine. No acute fracture. No dislocation. Soft tissues: Unremarkable. Vasculature: Atherosclerotic changes of the aorta. No thoracic aortic aneurysm. Lymph nodes: Unremarkable. No enlarged lymph nodes. IMPRESSION: Mild tree-in-bud nodularity in the RIGHT middle lobe, lingula, and lung bases, correlate for mild infiltrates. Correlate for Mycobacterium avium intracellulare. Hospital Course (1) Fatigue: (2) COPD, moderate: (3) Mycobacterial disease: (4) Weight loss: (5) Hypothyroidism: Plan Pt is a 77 yo female presenting from home with progressive generalized weakness and fatigue. Patient unable to get out of bed and care for herself or her . Now improved and stable for discharge. #Fatigue #Weight Loss #Failure to Thrive Patient unable to care for herself and her at home leading to her presentation to the ED. Has lost about 10 kg since February. 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 PT/OT recommend at least home health to aid with care of her . CM provided her with a list of resources. Patient will consider. Will need outpatient follow up Work up: COVID, RSV, influenza, monospot; EBV panel pending, CBC, CMP, iron studies WNL, check sputum culture and gram stain (uncollected) TSH recently WNL. History of breast cancer - 12/2022 negative. CLN neg 2014 CT chest showed tree-in-bud nodularity in the right middle lobe, lingula and lung bases. This is most consistent with patient's known mycobacterial disease. The patient is not having any respiratory symptoms at this time. COPD Chronic. No report of worsening cough, SOB or wheeze. Cough is dry and non-productive. Continue home arnuity and guaifenesin Mycobacterial disease Patient does not endorse worsening pulmonary symptoms. Do not suspect that her current symptoms are secondary to her underlying RADHA. She is being followed by both Pulmonary (Dr. Calvert) and ID (Dr. Burgos) with ID primarily managing her antibiotics. On Azithromycin and Rifampin 3x weekly, started in September. Continue Pyridoxine QD. 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; per CM note, pt has no interest in this at this time- will require further discussions concerning discharge and discharge planning Total Time Total Time Spent Total Time Spent (In Minutes): <30 Discharge Plan Discharge Items Patient Disposition: Home - Self-Care Reason For Visit: WEAKNESS, FATIGUE Discharge Diagnosis: caregiver fatigue, weakness Activity: Per Instructions section Non-emergency contact: Primary Care Provider Call non-emergency contact if: you have any medication questions and your s ymptoms worsen Follow-up/Referrals: Chandan Moss MD [Primary Care Provider] - 07/14/23 2:00 pm Diet: Regular Addtl Attending Provider Instructions: You were admitted to the hospital due weakness and fatigue. No apparent reasons for this were found on initial blood work. Physical therapy worked with you and determined that you may benefit from rehab to increase your strength. It is strongly recommended that you follow up with your primary care doctor for further work up/discussion concerning your fatigue, weakness, and weight loss. A discharge summary will be sent to your primary care physician to ensure continuity of care. Please bring this discharge summary with you to your next office appointment so that your provider can review it at that time. Medications: Your medication list has been reviewed and reconciled upon discharge to ensure accuracy and continuity of care. An updated list of all your medications is included with your hospital discharge paperwork. Please review this list closely and make note of any changes to your medications. - No change were made to your medications. Follow up appointments: - Make a follow up appointment with your PCP within the next week. It is very important that you follow up with them shortly after discharge from the hospital. - Keep all of your follow up appointments as already scheduled. If you cannot make an appointment, notify your provider. CONTACT YOUR PRIMARY CARE PROVIDER if you experience any of the following: - Difficulty following your treatment plan - Difficulty taking any of your medications CALL 911 OR GO TO THE EMERGENCY DEPARTMENT if you experience any of the following: - Sudden, severe abdominal pain or nausea/vomiting - Severe chest pain or chest pain that radiates to your jaw or arm - Sudden, severe shortness of breath or difficulty breathing Pending Studies at Discharge: No Stand-Alone Forms: [facility], Smoking Cessation Medications and DC Order Prescriptions: Continued Arnuity Ellipta 200 mcg/actuation blister with device 1 inh INHALATION QAM Qty: 30 5RF (DME) Flutter Valve Device See Rx Instructions .ROUTE .MEDSUPPLY Qty: 1 0RF Rx Instructions: As directed (DME) nebulizer accessories Misc See Rx Instructions .Route Qty: 1 0RF Rx Instructions: As directed cholecalciferol (vitamin D3) 1,000 unit capsule 2,000 unit PO QAM levothyroxine [Synthroid] 50 mcg Tablet 50 mcg PO DAILYBB Qty: 0 0RF Centrum Silver Women 8 mg iron-400 mcg-300 mcg Tablet 1 tab PO QAM azithromycin 250 mg tablet 500 mg PO 3XWK Rx Instructions: monday,,monday rifampin 300 mg capsule 600 mg PO 3XWK Rx Instructions: monday,monday,fridays pyridoxine (vitamin B6) [Vitamin B-6] 100 mg Tablet 100 mg PO DAILY Discharge Orders: Discharge Order (Routine); Ordered 07/03/23 Ordered By: Yenifer Triana Admission Data Admit Date/Time: 06/29/23 22:49 Attending Provider: Jeovany Calvert Admit Provider: Nohemy Hong Primary Care Provider: Chandan Moss Other Providers: Nohemy Hong; Capo Patel Other Interventions: Discharge Summary Assessment (RN) Last Done: 07/03/23 10:45 Supervising Physician Co-Signing Physician Notes I personally examined the patient and verified all yepez points of history and exam, discussed case, and agree with decision making with Dr Triana Feels a little bit weak and feels paresthesias bilateral hands, agrees that it could be a bit orthostasis (she is trying to walk more) and fluid intake (she is aware that she needs to drink as much as she can and track it) and also agrees it could be stress/anxiety mediated. Either way, she feels up to going home and would like to take her home as well. Vitals noted, in general she is awake and alert appears mildly anxious but no distress she is pacing in the room without loss of balance a good normal gait whenever I enter. HEENT normocephalic atraumatic mucous membranes moist. Breathing unlabored no accessory muscle use good effort. Skin shows no rashes no pallor or icterus. Neuro without focal deficits. IMPRESSION & PLAN I agree the impression and plan as noted in the resident documentation above. Progressive, subacute fatigue and weight loss in the setting of COPD, and pulmonary mycobacterial disease on chronic suppression. She does have noted history of hypothyroidism but recent outpatient TSH well within normal. Feels up to going home. Encouraged her to seek more care if she can particularly in caring for her . Close PCP follow-up. Additional per resident documentation Resident Activity Tracking Resident Involvement: Resident Care Provided Care Provided: Adult Hospital Medicine
[2023-07-03 15:53] LABS: EBV Nuclear Ag Antibody >600.00 U/mL; EBV Virus Capsid Ag IgG Ab >750.00 U/mL
--- NOTE | 2023-07-03 18:37 | Billing Data ---
Date of Service July 03, 2023 Coding Level of Care Code 08816 IN/OBS DISCH 30 MIN/LESS
--- OUTSIDE RECORDS SUMMARY | 2023-07-06 09:17 | External Medical Summary | Continuity of Care Document ---
Author Name Unknown Organization [facility] [address] [facility] [address] Address [address] [phone] Care Team Providers Care Instructor Bridge Name Role Phone Chandan Moss Primary Care Physician [phone] Encounter [facility] JOYCELYNR [id number] Date(s): 04/19/23 - 04/19/23 [facility] 0 [facility] 207 [facility] [address] Practice Site [address] [facility] 207 [place], [place] [address]M[place] [phone] Encounter Diagnosis Body mass index [BMI] 27.0-27.9, adult(Discharge Diagnosis) - 04/19/23 Hypothyroidism(Discharge Diagnosis) - 04/19/23 HX: breast cancer(Discharge Diagnosis) - 04/19/23 Discharge Disposition: Home or Self Care Attending Physician: MD Moss Joseph P Allergies, Adverse Reactions, Alerts Substance Reaction Severity Status cefaclor rash Active amoxicillin rash Active iodine topical headache and hives Active lidocaine topical rash Active tomatoes vaginal irritation Active Assessment and Plan Extracted from: Title:Office Visit Note Author:MD Moss Jos eph P Date:04/19/23 1.Hypothyroidism ASSESSMENT AND PLAN 1. Nontuberculosis mycobacterium of the lungs. She is seeing a pulmonology and infectious disease specialist, Dr. Kapoor. She is on the antibiotics. She will get blood test monitoring for those. 2. Difficulty walking. This is chronic and that is secondary to taking levofloxacin and now she walks with a cane. We did her handicap placard for that. 3. Hypothyroidism. She has had chronic fatigue. We will check the TSH. 4. Elevated blood pressure. Her blood pressure is up a little bit at 158/70. The goal for her would be less than 150/90. 5. History of breast cancer. This is stable. She will have monitoring of that when the doctor does not cancel the appointments. Follow-up The patient will follow up in 4 to 6 months. 2.HX: breast cancer Immunizations Given and Recorded Vaccine Date Status Refusal Reason SARS-CoV-2 mRNA (Pfizer 12+) bivalent 1 06/15/22 R ecorded SARS-CoV-2 (COVID-19) mRNA BNT-162b2 vax 2 06/23/21 Recorded SARS-CoV-2 (COVID-19) mRNA BNT-162b2 vax 3 10/23/20 Recorded SARS-CoV-2 (COVID-19) mRNA BNT-162b2 vax 4 10/02/20 Recorded influenza virus vaccine, inactivated 05/23/19 Give n influenza virus vaccine, inactivated 08/16/16 Peter rded pneumococcal 13-valent vaccine 08/14/15 Recorded pneumococcal 13-valent vaccine 5 07/28/15 Recorded pneumococcal 23-valent vaccine 08/09/13 Recorded pneumococcal 23-valent vaccine 11/26/04 Recorded influenza virus vaccine, H1N1 6 08/25/09 Recorded tetanus/diphtheria/pertuss, acel (Tdap) 05/27/09 R ecorded 1Result Comment: 2022-06-23: Historical information-source unspecified 2Result Comment: 2022-06-23: Historical information-source unspecified 3Result Comment: 2022-06-23: Historical information-source unspecified 4Result Comment: 2022-06-23: Historical information-source unspecified 5Result Comment: 2022-06-23: Historical information-source unspecified 6Result Comment: 2022-06-23: Historical information-source unspecified Medications Arnuity Ellipta 100 mcg inhalation powder Start: 03/05/20 15:45:00 EDT, 1 puff, inhaled, Daily, Disp# 1 each, Refills: 0, Pharmacy: [facility]/pharmacy #[id number] Start Date: 03/05/20 Status: Ordered azithromycin 250 mg oral tablet Start: 04/19/23 16:37:00 EDT, See Instructions, Disp# 30 tab, 2 tab PO three times a week, other Start Date: 04/19/23 Status: Ordered ethambutol 400 mg oral tablet Start: 04/19/23 16:37:00 EDT, See Instructions, Disp# 30 tab, three tabs three times week, other Start Date: 04/19/23 Status: Ordered levothyroxine 50 mcg (0.05 mg) oral tablet Start: 04/05/23 16:50:00 EDT, 1 tab, PO, Daily, Disp# 30 tab, Refills: 0, Pharmacy: [facility]/pharmacy #[id number] Start Date: 04/05/23 Stop Date: 05/05/23 Status: Ordered multivitamin Start: 10/11/16 14:04:00, 1 tab, PO, Daily Start Date: 10/11/16 Status: Ordered rifAMPin 300 mg oral capsule Start: 04/19/23 16:36:00 EDT, See Instructions, Disp# 30 cap, 2 caps three times a week, other Start Date: 04/19/23 Status: Ordered Tylenol 325 mg oral tablet Start: 10/11/16 14:05:00, 1 tab, PO, q4h, PRN: as needed for fever Start Date: 10/11/16 Status: Ordered Vitamin D3 Start: 12/29/22 11:03:00 EDT Start Date: 12/29/22 Status: Ordered Mental Status 04/19/23 Barriers to Learning one year None evide nt Mandatory Health Literacy Documentation Yes Health Literacy Communication Barriers N ever Primary Language Serbian Problem List Condition Confirmation Course Effective Dates Status Health St atus Informant HX: breast cancer Confirmed Active Hypothyroidism Confirmed Active Diagnosis Diagnosis Type Effective Dates Health Status Clinical Service Informant Body mass index [BMI] 27.0-27.9, adult Discharge Diagnosis 04/19/23 Non-Specified HX: breast cancer Discharge Diagnosis 04/19/23 Hypothyroidism Discharge Diagnosis 04/19/23 Procedures Procedure Date Related Diagnosis Body Site Status Chest X-ray 1 09/15/[address] of chest 2 09/15/22 Completed Mammogram 3 05/22/20 Completed HIDA scan 4 01/30/18 Completed Mammogram - screening 5 01/08/18 C ompleted Ultrasound scan of upper abdomen 6 11/08/17 Completed Mammogram 01/06/17 Completed Chest x-ray 7 12/16/16 Completed Colonoscopy 8 11/04/14 Completed Abdominal hysterectomy Co mpleted H/O mastectomy Completed 1Redemonstration of bilateral lower lung predominant airspace opacities compatible with infectious/inflammatory process. 2Impression: No pulmonary embolus is seen. Bilateral tree in bud nodules favoring the lower lobes are compatible with infectious/inflammatory process. No jocelyne consolidation is seen. 3IMPRESSION: ACR BI-RADS CATEGORY 2: BENIGN There is no mammographic evidence of malignancy. A 1 year screening mammogram is recommended. 41. No evidence for cystic duct obstruction. 2. Gallbladder ejection fraction calcilated to be 84% 5There is no mammographic evidence of malignancy. A 1 year screening mammogram is recommended. 61. No cholelithiasis or sonographic evidence of acute cholecystitis. 2. No biliary ductal dialation. 3. Heterogeneous appearance of the liver with increased echogenicity suggesting fatty infiltration.Ill-defined areas of decreased echogenicity within the right hepatic lobe mear the tani hepatis may reflect areas of fatty sparing or less likely focal hepatic mass lesions these findings could be correlated with contrast-enhanced CT of the abdomen. 7Stable appearance of the chest. No acute pulmonary abnormality noted radiographically. 8Repeat in 5yrs M Multiple diverticula were found in the sigmoid colon The sigmoid colon was significantly tortuous Vital Signs Most recent to oldest [Reference Range]: 1 Height 164 cm (04/19/23 4:24 PM) Patient Weight 72.7 kg (04/19/23 4:24 PM) Body Mass Index 27.03 kg/m2 (04/19/23 4:24 PM) Temperature [36.5-37.9 DegC] 36.5 DegC (04/19/23 4:24 PM) Respiratory Rate 16 br/min (04/19/23 4:24 PM) Blood Pressure 158/70mmHg (04/19/23 4:24 PM) Cuff Pulse Pressure 88 mmHg (04/19/23 4:24 PM) BP Location # 1 Right Arm (04/19/23 4:24 PM) Social History Social History Type Response Smoking Status Never smoked cigaret edil Sex Female FCM Outpt Note * MD Ajay, Chandan Suazo: PERFORM Event Display: FCM Outpt Note Authored Date: [id number] Chief Complaint Pt here for medication refill. Pt would like a handicap parking pass. History of Present Illness HISTORY OF PRESENT ILLNESS The patient is a 77-year-old female who presents for evaluation of multiple medical concerns. She is accompanied by an adult female. She was unable to get her thyroid renewed at the [facility] and was advised to see her primary care physician. She takes her thyroid medication early in the morning at 6:30. She takes rifampin 300 mg 2 capsules by mouth 3 times a week, ethambutol 400 mg 3 tablets by mouth 3 times a week, and azithromycin 250 mg 2 tablets by mouth 3 times a week. She does not have tuberculosis that she is aware of. They are trying to ascertain how long she might need them, but they want to obtain a sputum sample. She coughs up anything. She has been on the medications since 09/2022 except the ethambutol which she restarted later. She has difficulties walking. She uses a cane. She has a history of breast cancer. Dr. Angel has been canceling on her because of doing surgeries. She is not taking any medication for her blood pressure. She has noticed that her heartbeat seems to be really fast when she gets tired. Supplemental Information She uses Flovent inhaler once a day in the morning. She uses albuterol as needed if she finds it difficult to breathe. Physical Exam Vitals & Measurements T:36.5C RR:16 BP:158/70 SpO2:95% HT:164cm WT:72.7kg WT:72.700kg(Dosing) BMI:27.03 PHQ2 Data(Data Documented on:04/19/2023 16:21) Emotional health assessment NEGATIVE PHYSICAL EXAM Heart: Regular heart rate but has some ectopy. Musculoskeletal: Pulse is strong and steady. It is 2+ out of 2 in the right wrist. Vital Signs Blood pressure is 158/70. Assessment/Plan 1.Hypothyroidism ASSESSMENT AND PLAN 1. Nontuberculosis mycobacterium of the lungs. She is seeing a pulmonology and infectious disease specialist, Dr. Kapoor. She is on the antibiotics. She will get blood test monitoring for those. 2. Difficulty walking. This is chronic and that is secondary to taking levofloxacin and now she walks with a cane. We did her handicap placard for that. 3. Hypothyroidism. She has had chronic fatigue. We will check the TSH. 4. Elevated blood pressure. Her blood pressure is up a little bit at 158/70. The goal for her would be less than 150/90. 5. History of breast cancer. This is stable. She will have monitoring of that when the doctor does not cancel the appointments. Follow-up The patient will follow up in 4 to 6 months. 2.HX: breast cancer Problem List/Past Medical History Ongoing HX: breast cancer Hypothyroidism Historical Onychomycosis Urine frequency Procedure/Surgical History CT of chest (09/15/2022)Chest X-ray (09/15/2022)Mammogram (05/22/2020)HIDA scan (01/30/2018)Mammogram - screening (01/08/2018)Ultrasound scan of upper abdomen (11/08/2017)Mammogram (01/06/2017)Chest x-ray (12/16/2016)Colonoscopy (11/04/2014)H/O mastectomyAbdominal hysterectomy Medications acetaminophen(Tylenol 325 mg oral tablet), 325 mg= 1 tab, PO, q4h, PRN azithromycin(azithromycin 250 mg oral tablet), See Instructions cholecalciferol(Vitamin D3) ethambutol(ethambutol 400 mg oral tablet), See Instructions fluticasone(Arnuity Ellipta 100 mcg inhalation powder), 1 puff, inhaled, Daily levothyroxine(levothyroxine 50 mcg (0.05 mg) oral tablet), 50 mcg= 1 tab, PO, Daily multivitamin, 1 tab, PO, Daily rifAMPin(rifAMPin 300 mg oral capsule), See Instructions Allergies amoxicillinrash cefaclorrash iodine topicalheadache and hives lidocaine topicalrash tomatoesvaginal irritation Social History Smoking Status Never smoked cigarettes Alcohol - Denies Alcohol Use Substance Abuse - Denies Substance Abuse Tobacco - Denies Tobacco Use Family History Cancer of ovary: Mother. Health Status Family Member(s) Immunizations Vaccine Date Status SARS-CoV-2 mRNA (IRI 12+) bivalent 06/15/2022 Recorded Comments : 2022-06-23: Historical information-source unspecified SARS-CoV-2 (COVID-19) mRNA BNT-162b2 vax 06/23/2021 Recorded Comments : 2022-06-23: Historical information-source unspecified SARS-CoV-2 (COVID-19) mRNA BNT-162b2 vax 10/23/2020 Recorded Comments : 2022-06-23: Historical information-source unspecified SARS-CoV-2 (COVID-19) mRNA BNT-162b2 vax 10/02/2020 Recorded Comments : 2022-06-23: Historical information-source unspecified influenza virus vaccine, inactivated 05/23/2019 Given influenza virus vaccine, inactivated 08/16/2016 Recorded pneumococcal 13-valent vaccine 08/14/2015 Recorded pneumococcal 13-valent vaccine 07/28/2015 Recorded Comments : 2022-06-23: Historical information-source unspecified pneumococcal 23-valent vaccine 08/09/2013 Recorded influenza virus vaccine, H1N1 08/25/2009 Recorded Comments : 2022-06-23: Historical information-source unspecified tetanus/diphtheria/pertuss, acel (Tdap) 05/27/2009 Recorded pneumococcal 23-valent vaccine 11/26/2004 Recorded Recommendations Health Maintenance Pending(in the next year) OverDue Medicare Annual Wellness Visit due05/23/20and every 1year Adult Influenza Vaccine due02/25/23and every 1year Due Adult COVID-19 Vaccination due04/19/23Unknown Frequency Adult Tdap/Td Vaccine due04/19/23Unknown Frequency Falls Plan of Care due04/19/23Unknown Frequency Hepatitis C Screening due04/19/23One-time only Lipid Screening due04/19/23Unknown Frequency Osteoporosis Screening due04/19/23One-time only Shingles Vaccine due04/19/23One-time only Due In Future Body Mass Index not due until04/18/24and every 1year Satisfied(in the past 1 year) Satisfied Adult COVID-19 Vaccination on06/15/22.Satisfied by MD Khoury Kyle Body Mass Index on04/19/23.Satisfied by TIFFANIE Mckeon Paula Breast Cancer Screening on01/04/23.Satisfied by LISS Araujo Katrina Electronic Signature on File Electronically Reviewed/Signed by: Chandan Moss MD Author Signature Dt/Tm:04/19/2023 05:03 PM Department of Family Medicine [facility] Patient Care team information Care Team Personnel Name: MD Ajay, Chandan Suazo Position: Physician - Family Med Member Role: Primary Care Provider Address: Address: [address] [place] [address], [place] [address] [place] Care Team Related Persons Name: CLIVE CALLOWAY Address: home [address] [facility] [place] [phone] Name: KENDRA CALLOWAY Address: home No Address Provided
--- OUTSIDE RECORDS SUMMARY | 2023-07-06 09:18 | External Medical Summary | Continuity of Care Document ---
Author Name Unknown Organization [place] [address] [address] [phone] Care Team Providers Care Mill Turner Name Role Phone Robin Flores Primary Care Physician [phone] [id number] Date(s): 12/29/22 - 12/29/22 [facility] [address] Practice Site 1850 [facility] 207 [place], [place] [address]Fwqiw [phone] Encounter Diagnosis Body mass index [BMI] 29.0-29.9, adult(Discharge Diagnosis) - 12/29/22 Peripheral neuropathy(Discharge Diagnosis) - 12/29/22 SOB (shortness of breath)(Discharge Diagnosis) - 12/29/22 Discharge Disposition: Home or Self Care Attending Physician: MD Ajay, Chandan Suazo Allergies, Adverse Reactions, Alerts Substance Reaction Severity Status cefaclor rash Active amoxicillin rash Active iodine topical headache and hives Active lidocaine topical rash Active tomatoes vaginal irritation Active Immunizations Given and Recorded Vaccine Date Status Refusal Reason Pfizer (COVID-19 12+) bivalent booster 1 06/15/22 Recorded SARS-CoV-2 (COVID-19) mRNA BNT-162b2 vax 2 06/23/21 [...] 6Result Comment: 2022-06-23: Historical information-source unspecified Medications albuterol 0.083% for nebulization Start: 10/11/16 14:04:00, 3 mL, NEB, q6h, PRN: as needed for wheezing Start Date: 10/11/16 Status: Ordered Arnuity Ellipta 100 mcg inhalation powder Start: 03/05/20 15:45:00 EDT, 1 puff, inhaled, Daily, Disp# 1 each, Refills: 0, Pharmacy: [facility]/pharmacy #[id number] Start Date: 03/05/20 Status: Ordered levothyroxine 50 mcg (0.05 mg) oral tablet Start: 08/04/22 14:03:00 EST, 1 tab, PO, Daily, Disp# 30 tab, Refills: 2, Pharmacy: [facility]/pharmacy #[id number] Start Date: 08/04/22 Stop Date: 11/02/22 Status: Ordered multivitamin Start: 10/11/16 14:04:00, 1 tab, PO, Daily Start Date: 10/11/16 Status: Ordered Tylenol 325 mg oral tablet Start: 10/11/16 14:05:00, 1 tab, PO, q4h, PRN: as needed for fever Start Date: 10/11/16 Status: Ordered Vitamin D3 Start: 12/29/22 11:03:00 EDT Start Date: 12/29/22 Status: Ordered Mental Status 12/29/22 Barriers to Learning one year None evide nt Mandatory Health Literacy Documentation Yes Health Literacy Communication Barriers N ever Primary Language Pashto Problem List Condition Confirmation Course Effective Dates Status Health St atus Informant HX: breast cancer Confirmed Active Hypothyroidism Confirmed Active Diagnosis Diagnosis Type Effective Dates Health Status Clinical Service Informant Body mass index [BMI] 29.0-29.9, adult Discharge Diagnosis 12/29/22 Non-Specified SOB (shortness of breath) Discharge Diagnosis 12/29/22 Non-Specified Peripheral neuropathy Discharge Diagnosis 12/29/22 Non-Specified Procedures Procedure Date Related Diagnosis Body Site [...] oldest [Reference Range]: 1 Height 164 cm (12/29/22 11:09 AM) Patient Weight 80.1 kg (12/29/22 11:09 AM) Body Mass Index 29.78 kg/m2 (12/29/22 11:09 AM) Temperature [36.5-37.9 DegC] 36.7 DegC (12/29/22 11:09 AM) Blood Pressure 168/94mmHg (12/29/22 11:09 AM) BP Location # 1 Right Arm (12/29/22 11:09 AM) Social History Social History Type Response Smoking Status Former Smoker, quit > 1 yr Sex Female Patient Care team information Care Team Related Persons Name: CLIVE CALLOWAY Address: home [address] [place] [address], [place] [phone] Name: KENDRA CALLOWAY Address: home No Address Provided
--- OUTSIDE RECORDS SUMMARY | 2023-07-06 09:18 | External Medical Summary | Continuity of Care Document ---
Author Name Unknown Organization [facility] [address] Address [address] [place], [place] [phone] Care Team Providers Care Warehouse Insulation Worker Name Role Phone Chandan Moss Primary Care Physician [phone] [id number] Date(s): 03/01/23 - 03/01/23 [facility] [address] [facility] [address] [facility] [address] [place], [place] [phone] Encounter Diagnosis Pulmonary mycobacterial infection(Final) - Discharge Disposition: Home or Self Care Attending Physician: SUSY Bucio Kelsey Referring Physician: SUSY Bucio Kelsey Allergies, Adverse Reactions, Alerts Substance Reaction Severity [...] Daily, Disp# 1 each, Refills: 0, Pharmacy: [facility]/pharmacy #[id number] Start Date: 03/05/20 Status: Ordered levothyroxine 50 mcg (0.05 mg) oral tablet Start: 08/04/22 14:03:00 EST, 1 tab, PO, Daily, Disp# 30 tab, Refills: 2, Pharmacy: [facility]/pharmacy #[id number] Start Date: 08/04/22 Stop Date: 11/02/22 Status: Ordered multivitamin Start: 10/11/16 14:04:00, 1 tab, PO, Daily Start Date: 10/11/16 Status: Ordered Tylenol 325 mg oral tablet Start: 10/11/16 14:05:00, 1 tab, PO, q4h, PRN: as needed for fever Start Date: 10/11/16 Status: Ordered Vitamin D3 Start: 12/29/22 11:03:00 EDT Start Date: 12/29/22 Status: Ordered Problem List Condition Confirmation Course Effective Dates Status Health St atus Informant HX: breast cancer Confirmed Active Hypothyroidism Confirmed Active Procedures Procedure Date Related Diagnosis Body Site [...] colon The sigmoid colon was significantly tortuous Results Laboratory List Name Date Hepatic Function Panel (HEPATIC FUNCT PA [facility]) 03/01/23 Request to FAX Report (First Location) ( ACC NO TO BE FAXED) 03/01/23 Most recent to oldest [Reference Range]: 1 Phone No [phone] (03/01/23 4:13 PM) Faxed on: 03/02/23 09:48 (03/01/23 4:13 PM) Alb [3.5-5.2 g/dL] 4.3 g/dL (03/01/23 4:13 PM) Alk Phos [35-115 unit/L] 93 unit/L (03/01/23 4:13 PM) ALT [0-33 unit/L] 20 unit/L (03/01/23 4:13 PM) AST [0-32 unit/L] 27 unit/L (03/01/23 4:13 PM) D Bili [0.0-0.3 mg/dL] 0.2 mg/dL (03/01/23 4:13 PM) T Bili [0.0-1.2 mg/dL] 0.5 mg/dL (03/01/23 4:13 PM) Prot [6.4-8.3 g/dL] 7.3 g/dL (03/01/23 4:13 PM) 1Result Comment: Testing Performed By: [facility] [address], [address], [place] [address] Social History Social History Type Response Smoking Status Former Smoker, quit > 1 yr Sex Female Patient Care team information Care Team Personnel Name: MD Ajay, Chandan Suazo Position: Physician - Family Med Member Role: Primary Care Provider Address: Address: [facility] [address] [place] [address] [place] Care Team Related Persons Name: CLIVE CALLOWAY Address: home [address] [facility], [place] [phone] Name: KENDRA CALLOWAY Address: home No Address Provided
--- OUTSIDE RECORDS SUMMARY | 2023-07-06 09:18 | External Medical Summary | Continuity of Care Document ---
Author Name Unknown Organization [facility] [address] Address [address] [place], [place] [phone] Care Team Providers Care Mill Machinist Name Role Phone Chandan Moss Primary Care Physician [phone] [id number] Date(s): 04/13/23 - 04/13/23 [facility] [address] [facility] [address] [facility] [place], [place] [phone] Encounter Diagnosis Pulmonary mycobacterial infection(Final) - Discharge [...] Daily, Disp# 1 each, Refills: 0, Pharmacy: [facility]/pharmacy #[id number] Start Date: 03/05/20 Status: Ordered levothyroxine 50 mcg (0.05 mg) oral tablet Start: 04/05/23 16:50:00 EDT, 1 tab, PO, Daily, Disp# 30 tab, Refills: 0, Pharmacy: [facility]/pharmacy #[id number] Start Date: 04/05/23 Stop Date: 05/05/23 [...] Hepatic Function Panel (HEPATIC FUNCT PA [facility]) 04/13/23 Most recent to oldest [Reference Range]: 1 Alb [3.5-5.0 g/dL] 4.2 g/dL (04/13/23 1:58 PM) Alk Phos [38-126 unit/L] 77 unit/L (04/13/23 1:58 PM) ALT [<35 unit/L] 28 unit/L (04/13/23 1:58 PM) AST [15-46 unit/L] 35 unit/L (04/13/23 1:58 PM) D Bili [0.0-0.6 mg/dL] <0.1 mg/dL (04/13/23 1:58 PM) T Bili [0.2-1.3 mg/dL] 0.2 mg/dL (8/17/23 1:58 PM) Prot [6.3-8.2 g/dL] 7.2 g/dL 1 (04/13/23 1:58 PM) 1Result Comment: Testing Performed By: Dept of Pathology [facility] [address], [address], [place] [address] Social History Social History Type Response Smoking Status Former Smoker, quit > 1 yr Sex Female Patient Care team information Care Team Personnel Name: MD Ajay, Chandan Suazo Position: Physician - Family Med Member Role: Primary Care Provider Address: Address: [address] [place] [address] [address] [place] [address] [place] Care Team Related Persons Name: CLIVE CALLOWAY Address: home [address] [facility], [place] [phone] Name: KENDRA CALLOWAY Address: home No Address Provided
== END 2023-07-03 12:50 | disposition home or self-care (01) | DRG 641 ==
LOC: ED 17:22 → SUATTDRO 22:49 → 3W 06-30